=== PATIENT | female | born 1990 | race Caucasian/White ===

== ENCOUNTER 2020-10-28 12:32 | Outpatient (CLI) | payer OTHER, SELFPAY ==
--- NOTE | ~2020-10-28 | XR_ITS ---
EXAMINATION: XR chest 2V DATE: 10/28/2020 13:26 INDICATION: Shortness of breath TECHNIQUE: PA and lateral views of the chest are obtained. COMPARISON: None available FINDINGS: The lungs are free of acute opacities. There is no pleural effusion or pneumothorax. The ca rdiomediastinal silhouette is normal. The visualized bones and soft tissues are unremarkable. IMPRESSION: 1. No acute cardiopulmonary abnormality. Reviewed, dictated and finalized at location A. EWATER ENGINEER
[2020-10-28 13:27] LABS: Basophils Absolute Auto 0.1 K/mm3 (0.0-0.1); Basophils Percent Auto 0.5 % (0.2-1.2); Eosinophils Absolute Auto 0.3 K/mm3 (0-0.3); Eosinophils Percent Auto 3.2 % (0-4.4); Hematocrit 39.8 % (37.0-47.0); Hemoglobin 13.3 g/dL (12.0-15.0); Immature Granulocyte Absolute 0.03 K/mm3 (0.00-0.031); Immature Granulocyte Percent A 0.3 % (0-0.5); Lymphocytes Absolute Auto 3.09 K/mm3 (0.9-3.2); Lymphocytes Percent Auto 31.1 % (18.3-44.2); Mean Corpuscular HGB Conc 33.4 g/dl (32-36); Mean Corpuscular Hemoglobin 26.7 pg (26-34); Mean Corpuscular Volume 79.8 fl (80-100); Mean Platelet Volume 10.3 fl (7.4-10.4); Monocytes Absolute Auto 0.8 K/mm3 (0.1-0.6); Monocytes Percent Auto 7.5 % (2.6-8.5); Neutrophils Absolute Auto 5.7 K/mm3 (1.3-6.7); Neutrophils Percent Auto 57.4 % (45.5-73.1); Platelet Count Result 285 k/mm3 (150-375); Red Blood Count 4.99 M/mm3 (4.2-5.4); Red Cell Distribution Width 14.6 % (11.5-14.5)
[2020-10-28 13:40] LABS: Alanine Aminotransferase 12 U/L (4-35); Albumin Level 4.2 g/dL (3.5-5.1); Alkaline Phosphatase 71 U/L (38-126); Anion Gap 9 mmol/L (8-16); Aspartate Amino Transferase 19 U/L (14-36); Bilirubin,Total 0.5 mg/dL (0.2-1.3); Blood Urea Nitrogen 12 mg/dL (7-17); Calcium 9.4 mg/dL (8.4-10.2); Carbon Dioxide 27 mmol/L (22-30); Chloride 104 mmol/L (98-107); Cholesterol 165 mg/dL (0-200); Estimated Glomerular Filt Rate > 60; Glucose 94 mg/dL (65-105); HDL Direct 34 mg/dL; Potassium 4.1 mmol/L (3.4-5.0); Sodium 140 mmol/L (137-145); Triglycerides 94 mg/dL (<150)
[2020-10-28 13:51] LABS: LDL Cholesterol Direct 111 mg/dL
[2020-10-28 14:20] LABS: Free T4 Free Thyroxine 1.05 ng/mL (0.78-2.19)
== END 2020-10-28 12:33 | disposition home or self-care (01) ==
DX: R06.02 Shortness of breath (principal)
CPT/HCPCS: 36415; 71046; 80053; 80061; 84439; 84443; 85025

== ENCOUNTER 2021-12-01 15:03 | Emergency (ER) | payer OTHER, SELFPAY ==
[2021-12-01] VITALS (12 sets, daily range): BP systolic 115–131; BP diastolic 60–77; PULSE 67–102; RESP 15–25; TEMP 36.6; O2SAT 98–100
--- NOTE | ~2021-12-01 | XR_ITS ---
EXAMINATION: XR chest 1V portable DATE: 12/01/2021 16:50 INDICATION: Nausea, vomiting, and diarrhea. Cough. COVID-19 positive. TECHNIQUE: A single frontal view of the chest was obtained. COMPARISON: Chest 2 views 10/28/2020 FINDINGS: The chest demonstrates clear lungs without pneumonia, pleural effusion, or pneumothorax. Th e heart size is normal. IMPRESSION: 1. No acute cardiopulmonary disease. Reviewed, dictated and finalized at location A. RCEMENT MANAGER
--- NOTE | 2021-12-01 15:15 | PC.NURSE ---
Addendum entered by Enrrique Turcios RN 12/01/21 15:19: later reports one dose prednisone 2 weeks prior. Addendum entered by Enrrique Turcios RN 12/01/21 15:17: reports URI dx 2 weeks prior, was on amoxicillin, reports symptoms subsided for 2 days. Original Note: reports onset of covid symptoms on 11/24/21. reports home test positive that night. reports 14 weeks gestation, 2nd . LMP 08/07/21. reports onset of dyspnea with exertion with palpitations. reports decreased urine output.
[2021-12-01] MEDS: SODIUM CHLORIDE 0.9% IV 1,000 ML 999 ML IV CONT (16:39)
[2021-12-01] MEDS: ONDANSETRON INJ 4 MG/2 ML VIAL IV PUSH (16:40)
[2021-12-01 16:48] LABS: Basophils Percent Auto 0.2 % (0.2-1.2); Eosinophils Absolute Auto 0.1 K/mm3 (0-0.3); Eosinophils Percent Auto 0.9 % (0-4.4); Hematocrit 36.8 % (37.0-47.0); Hemoglobin 12.7 g/dL (12.0-15.0); Immature Granulocyte Absolute 0.08 K/mm3 (0.00-0.031); Immature Granulocyte Percent A 0.7 % (0-0.5); Lymphocytes Absolute Auto 2.39 K/mm3 (0.9-3.2); Lymphocytes Percent Auto 20.7 % (18.3-44.2); Mean Corpuscular HGB Conc 34.5 g/dl (32-36); Mean Corpuscular Hemoglobin 28.7 pg (26-34); Mean Corpuscular Volume 83.3 fl (80-100); Mean Platelet Volume 11.1 fl (7.4-10.4); Monocytes Absolute Auto 0.5 K/mm3 (0.1-0.6); Monocytes Percent Auto 4.6 % (2.6-8.5); Neutrophils Absolute Auto 8.5 K/mm3 (1.3-6.7); Neutrophils Percent Auto 72.9 % (45.5-73.1); Platelet Count Result 234 k/mm3 (150-375); Red Blood Count 4.42 M/mm3 (4.2-5.4); Red Cell Distribution Width 13.9 % (11.5-14.5); White Blood Count 11.6 K/mm3 (4.5-10.0)
--- NOTE | 2021-12-01 16:57 | ED.GENADULT ---
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 Last Covid vaccine January 2021. Related Data Home Medications Medication Instructions Recorded Confirmed albuterol sulfate 90 mcg/actuation 1 puff INHALATION Q4H PRN 04/18/20 aerosol inhaler fluticasone propionate 50 1 spray NASAL .prn ml 04/18/20 mcg/actuation nasal spray,suspension fluoxetine 30 mg PO DAILY 12/01/21 Allergies Allergy/AdvReac Type Severity Reaction Status Date / Time ciprofloxacin [From Cipro] Allergy Mild Diarrhea Verified 12/01/21 15:12 Review of Systems Review of Systems: CONSTITUTIONAL: Denies fever, chills, or sweats. EYES: Denies visual changes, redness, or discharge. ENT: Denies rhinorrhea, congestion, sore throat, or otalgia. CARDIOVASCULAR: Denies chest pain, palpitations, or edema. RESPIRATORY: Denies cough or dyspnea. GASTROINTESTINAL: Denies abdominal pain, nausea, vomiting, or diarrhea. GENITOURINARY: Denies dysuria or hematuria. SKIN: Denies rash or itching. MUSCULOSKELETAL: Denies back pain, joint pain, or myalgia. NEUROLOGIC: Denies headache, numbness, or weakness. PSYCHIATRIC: Denies anxiety or depression. PMFSH Past Medical History Medical History Anxiety Asthma Depression Family History Family History Mother Hypertension Diabetes mellitus High cholesterol Heart disease Father Hypertension High cholesterol ADHD Sibling Depression Grandparent Breast cancer Colon cancer Glaucoma Crohn's disease Social History Social History Smoking status: Never smoker Alcohol intake: current Substance use: never Substance use type: does not use Exam Narrative: General appearance: Well-developed, well-nourished Skin: Normal color Head: Normocephalic, nontraumatic Eyes: Clear conjunctiva ENT: Oropharynx normal, ears normal, nose normal Neck: Supple, nontender Chest and respiratory: Airway patent, no respiratory distress, no accessory muscle use Heart: Regular rate/rhythm Abdomen: Soft, nontender, no organomegaly, quiet bowel sounds Vascular: Normal peripheral pulses, normal capillary refill. Musculoskeletal: Normal range of motion, nontender back Neurologic: Alert and oriented ?3, TRANSMITTER TESTER is normal as tested, no gross motor deficit Course Course Emergency Course: Stable Vital Signs Vital signs: Vital Signs Temperature 36.6 C 12/01/21 15:07 Pulse Rate 102 H 12/01/21 15:07 Respiratory Rate 20 12/01/21 15:07 Blood Pressure 130/72 12/01/21 15:07 Pulse Oximetry 99 12/01/21 15:07 Temperature 36.6 C 12/01/21 15:07 Pulse Rate 87 12/01/21 18:31 Respiratory Rate 17 12/01/21 18:31 Blood Pressure 119/70 12/01/21 18:31 Pulse Oximetry 99 12/01/21 18:31 Medical Decision Making [facility] Narrative Medical decision making narrative: 14 weeks with Covid infection for 1 week. Work-up did not show any significant finding to confirm the diagnosis of dehydration. Patient nausea and vomiting could be secondary to Covid infection versus hyperemesis gravidar
[2021-12-01 17:00] LABS: Alanine Aminotransferase 20 U/L (4-35); Albumin Level 3.6 g/dL (3.5-5.1); Alkaline Phosphatase 58 U/L (38-126); Anion Gap 10 mmol/L (8-16); Aspartate Amino Transferase 23 U/L (14-36); Bilirubin,Total 0.3 mg/dL (0.2-1.3); Blood Urea Nitrogen 6 mg/dL (7-17); Calcium 8.8 mg/dL (8.4-10.2); Carbon Dioxide 19 mmol/L (22-30); Chloride 106 mmol/L (98-107); Estimated CRCL calculation 136 ml/min; Estimated Glomerular Filt Rate > 60; Glucose 130 mg/dL (65-110); Potassium 3.5 mmol/L (3.4-5.0); Sodium 135 mmol/L (137-145)
[2021-12-01 18:14] LABS: Add Urine Microscopic? YES; Amorphous Sediment Urine Few; Appearance Urine Cloudy (Clear); Bacteria Urine Trace /hpf; Bilirubin Urine Negative (Negative); Blood Urine Negative (Negative); Color Urine Yellow (Yellow); Glucose Urine UA 1+ mg/dL (Negative); Ketones Urine Negative (Negative); Leukocyte Esterase Ur Negative LEU/UL (Negative); Mucus Urine Rare /lpf; Nitrate Urine Negative (Negative); Protein Urine Negative (Negative); RBC Urine 0-2 /hpf (0-2); Specific Grav Ur 1.017 (1.001-1.035); Squamous Epithelial Cell Urine Few /hpf (Few); Urobilinogen Urine Negative mg/dL (<2.0); WBC Urine 0-3 /hpf
== END 2021-12-01 19:23 | disposition home or self-care (01) ==
PROVIDERS: Emergency Provider Emergency Medicine; PCP Nurse Practitioner
DX: O98.512 Other viral diseases complicating pregnancy, second trimester (principal); U07.1 COVID-19; O21.8 Other vomiting complicating pregnancy; O99.512 Diseases of the respiratory system complicating pregnancy, second trimester; J45.909 Unspecified asthma, uncomplicated; O99.342 Other mental disorders complicating pregnancy, second trimester; F41.9 Anxiety disorder, unspecified; F32.A Depression, unspecified; Z3A.14 14 weeks gestation of pregnancy
CPT/HCPCS: 36415; 71045; 80053; 81001; 85025; 96361; 96374; 99284; J2405; J7030

== ENCOUNTER 2025-09-12 12:47 | Emergency (ER) | payer BC, SELFPAY ==
[2025-09-12] VITALS (7 sets, daily range): BP systolic 109–143; BP diastolic 69–94; PULSE 88–99; RESP 17–20; TEMP 36.6; O2SAT 98–100
--- NOTE | ~2025-09-12 | XR_ITS ---
EXAM/PROCEDURE: XR chest 2V HISTORY: Chest pain COMPARISON: 2021 TECHNIQUE: Two view(s) of the chest. FINDINGS: LUNGS: Clear of acute processes. PLEURAL SPACES: Clear. No evidence of fluid or pneumothorax. HEART/ MEDIASTINUM: Normal in appearance. SOFT TISSUES: No significant findings. BONES: No acute osseous abnormality. IMPRESSION: No acute findings. Reviewed, dictated and finalized at location A. PRESS OPERATOR IMPRESSION: No acute findings.
--- NOTE | 2025-09-12 12:48 | ECG_ITS ---
Test Date: 2025-09-12 12:54:52 Measurements Intervals [place] Rate: 98 P: 50 DE: 147 QRS: 57 QRSD: 74 T: 29 QT: 314 QTc: 402 Interpretive Statements SINUS RHYTHM POSSIBLE LEFT ATRIAL ENLARGEMENT [-0.1mV P-WAVE IN V1/V2] LOW QRS VOLTAGE IN PRECORDIAL LEADS [QRS DEFLECTION < 1.0 mV IN CHEST LEADS] NONSPECIFIC T-WAVE ABNORMALITY No previous ECG available for comparison Electronically Signed On 09-12-2025 13:36:06 FEATHER BALER by Bc Allen M.D.
--- NOTE | 2025-09-12 12:57 | ED.CHESTPAIN ---
HPI - Chest Pain General Chief Complaint: Chest Pain <Irma Henson PA-C - Last Filed: 09/14/25 14:11> Stated Complaint: ab pain, cp <Irma Henson PA-C - Last Filed: 09/14/25 14:11> Time Seen by Provider: 09/12/25 12:57 <Irma Henson PA-C - Last Filed: 09/14/25 14:11> Focused HPI: This is a 35 year old female that presents to the ER for heartburn. Reports she is waking up every day with severe abdominal pain, chest pain the last couple of days. Reports worsening after eating and drinking. Reports nausea. GENERAL: Uncomfortable, well-nourished, and in no acute distress. HEAD: Normocephalic, atraumatic. CHEST: Clear to auscultation. ?No respiratory distress. HEART: Regular rate and rhythm.? NEURO: ?Alert and oriented x3. Patient screened in triage and initial orders placed.? ?Additional care and disposition to be based upon?diagnostic testing and treatment. <Irma Henson PA-C - Last Filed: 09/14/25 14:11> History of Present Illness HPI narrative: Agree with the above following additions/corrections: Patient presents with epigastric abdominal pain radiating to chest pain that has been occurring for past 4 days. She is experiencing heartburn/indigestion with frequent eructation and her symptoms are worse after she eats and worse at night she has noticed that she had to take her CPAP off as result. She took Tums this morning at 2:50 a.m. and noted that it helped for about 30 minutes. She was having some left arm pain this morning. She denies regularly following with a dampener operator initially states that she has only seen 1 once previously when she was having an issue with some sutures from her C section that had become a problem with the GI tract (?) but later does state that she underwent EGD and colonoscopy a few years ago. She notes that she was diagnosed with GERD at that time but is not on any medications as she had otherwise been asymptomatic. She notes that the only other new thing she can think about is the fact that her 3yo daughter accidentally rammed her in her vagina and she has a history of an umbilical hernia. History of Csection x2 as her prior abdominal surgeries. She has not found any relation to food of her symptoms with including the timing or type of food she eats, only the time of day i.e. particularly night. Her last bowel movement was yesterday and she denies any diarrhea constipation or bloody stools. She has been nauseated but without emesis. No fevers verses are normal chilled she has mild cough. No metallic taste in her mouth but she feels like she has a pill stuck in her throat as a sensation. Occasionally drinks alcohol though not recently. Denies smoking or marijuana use. PCP is Shanel sTang Cardiac risk factors HTN: 0 HLD:0 DM:0 Obese: Yes Smoker:0 Personal history [place]/TIA/CVA: 0 Fam Hx [place] in first degree relative <65yo:0 ([place] in grandfather 40yo) <Angelina Berg MD - Last Filed: 09/12/25 20:00> Related Data Home Medications: Home Medications ?Medication ?Instructions ?Recorded ?Confirmed ?Last Taken ?Type albuterol sulfate 90 mcg/actuation 1 puff inhalation Q4H PRN dyspnea 04/18/20 Unknown History aerosol inhaler (ProAir HFA) fluticasone propionate 50 1 spray intranasal .prn 04/18/20 Unknown History mcg/actuation nasal spray,suspension (Flonase Allergy Relief) fluoxetine 20 mg tablet 30 mg PO DAILY 12/01/21 Unknown History <Irma Henson PA-C - Last Filed: 09/14/25 14:11> Allergies/Adverse Reactions: Allergies Allergy/AdvReac Type Severity Reaction Status Date / Time ciprofloxacin (From Cipro) Allergy Mild Diarrhea Verified 09/12/25 13:26 <Irma Henson PA-C - Last Filed: 09/14/25 14:11> [facility] Past Medical History Medical History: Medical History GERD (gastroesophageal reflux disease) diagnosed on EGD Depression Anxiety Asthma <Irma Henson PA-C - Last Filed: 09/14/25 14:11> Surgical History Surgical History: Surgical History History of colonoscopy H/O esophagogastroduodenoscopy <Irma Henson PA-C - Last Filed: 09/14/25 14:11> Family History Family History: Family History Mother Hypertension Diabetes mellitus High cholesterol Heart disease Father Hypertension High cholesterol ADHD Sibling Depression Grandparent Breast cancer Colon cancer Glaucoma Crohn's disease Acute myocardial infarction 40yo <Irma Henson PA-C - Last Filed: 09/14/25 14:11> Social History Social History: Social History Alcohol intake: current Substance use: never Substance use type: does not use <Irma Henson PA-C - Last Filed: 09/14/25 14:11> Exam Narrative: GENERAL: Well-appearing, well-nourished HEAD: Normocephalic, atraumatic. EYES: Non injected, non icteric ENT: Nares clear, no rhinorrhea or epistaxis. Gross auditory acuity intact. NECK: Supple. No meningismus. CHEST: Speaking in full sentences. No respiratory distress. HEART: Regular rate and rhythm. . ABDOMEN: Soft, nondistended. No rigidity or guarding. Not peritoneal. Thomson sign negative. EXTREMITIES: Normal range of motion. No lower extremity edema. SKIN: Warm, dry, no rash. NEURO: No focal deficits. Alert and oriented. Answering questions. Following commands. Normal speech without aphasia or dysarthria. PSYCH: Normal mood and affect. <Angelina Berg MD - Last Filed: 09/12/25 20:00> Course Vital Signs Vital signs: Vital Signs Temperature 97.8 F 09/12/25 13:24 Pulse Rate 99 09/12/25 13:24 Respiratory Rate 20 09/12/25 13:24 Blood Pressure 136/87 09/12/25 13:24 Pulse Oximetry 100 09/12/25 13:24 Oxygen Delivery Room Air 09/12/25 13:24 Temperature 97.8 F 09/12/25 13:24 Pulse Rate 93 09/12/25 21:28 Respiratory Rate 17 09/12/25 21:28 Blood Pressure 109/72 09/12/25 21:28 Pulse Oximetry 98 09/12/25 21:28 Oxygen Delivery Room Air 09/12/25 17:21 <Irma Henson PA-C - Last Filed: 09/14/25 14:11> Vital Signs Temperature 97.8 F 09/12/25 13:24 Pulse Rate 99 09/12/25 13:24 Respiratory Rate 20 09/12/25 13:24 Blood Pressure 136/87 09/12/25 13:24 Pulse Oximetry 100 09/12/25 13:24 Oxygen Delivery Room Air 09/12/25 13:24 Temperature 97.8 F 09/12/25 13:24 Pulse Rate 93 09/12/25 21:28 Respiratory Rate 17 09/12/25 21:28 Blood Pressure 109/72 09/12/25 21:28 Pulse Oximetry 98 09/12/25 21:28 Oxygen Delivery Room Air 09/12/25 17:21 <Angelina Berg MD - Last Filed: 09/12/25 20:00> MDM - Chest Pain MDM Narrative Medical decision making narrative: Patient presents with report of epigastric abdominal pain radiating into chest pain over the past 4 days. She describes indigestion/heartburn with frequent eructation. Symptoms are worse after she eats as well as overnight. She had previously been diagnosed with GERD on EGD but not on meds as otherwise asymptomatic. In the emergency department they are afebrile with vital signs within normal limits. HEART SCORE History 2 highly suspicious 1 moderately suspicious 0 slightly suspicious History score [address] depression/elevation not due to LBBB, LVH, or digoxin [address] depression but LBBB, LVH, nonspecific repolarization changes 0 normal ECG score 0 Age 2 >/= 65 1 45-64 0 <45 Age score 0 Risk factors (HTN, hypercholesterolemia, DM, obesity with BMI >30, current smoker or cessation </=3mo), positive fam hx with parent or sibling with CVD before age 65, atherosclerotic disease (prior [place], PCI/CABG, CVA/TIA, or peripheral arterial disease) 2 >/= 3 risk factors or history of atherosclerotic dz 1 - 1-2 risk factors 0 no known risk factors Risk factor score 1 Initial Troponin 2 >3 times normal limit 1 1-3 times normal limit 0 less than or equal to normal limit Troponin score 0 Total HEART Score 1 . Repeat troponin within normal limits. Leukocytosis. On repeat assessment patient is still complaining of some epigastric/low chest pain. I had only given 2 mg morphine initially although this does represent significant under dosing of this medication. Additional 2 mg is ordered in addition a ketorolac and notably this was only 15 minutes after patient had been given initial round of medications. Improving on reassessment, mild pressure and bloating remains. GI cocktail ordered. Otherwise stable for discharge; vital signs have remained within normal limits. Discussed the high likelihood that this represents GERD based on the description of her symptoms and her known diagnosis of this. Advised it taking omeprazole which is prescribed in addition to ondansetron. Provided GI referral contact information if she is unable to reestablish with her previous. Also provided cardiology contact information given her low but otherwise not negligible heart score although we discussed that cardiac etiology is less likely given her workup thus far. <Angelina Berg MD - Last Filed: 09/12/25 20:00> Differential Diagnosis Differential diagnosis: Likely stable angina, unstable angina pectoris, atypical chest pain, st elevation myocardial infarction, costochondritis, chest pain, biliary colic and other (GERD, esophageal spasm; Gastritis; peptic ulcer disease) <Angelina Berg MD - Last Filed: 09/12/25 20:00> Lab Data Attestation: I reviewed the patient's lab results. <Angelina Berg MD - Last Filed: 09/12/25 20:00> Result diagrams: 09/12/25 13:00 09/12/25 13:00 <Irma Henson PA-C - Last Filed: 09/14/25 14:11> Labs: Lab Results 09/12/25 09/12/25 09/12/25 Range/Units 13:00 15:46 15:58 WBC 13.3 H (4.5-10.0) K/mm3 RBC 4.80 (4.2-5.4) M/mm3 Hgb 12.5 (12.0-15.0) g/dL Hct 39.4 (37.0-47.0) % MCV 82.1 (80-100) fl MCH 26.0 (26-34) pg MCHC 31.7 L (32-36) g/dl RDW 14.0 (11.5-14.5) % Plt Count 272 (150-375) k/mm3 MPV 10.0 (7.4-10.4) fl Immature Gran % (Auto) 0.4 (0-0.5) % Neut % (Auto) 69.7 (45.5-73.1) % Lymph % (Auto) 20.6 (18.3-44.2) % [place] % (Auto) 7.5 (2.6-8.5) % Eos % (Auto) 1.4 (0-4.4) % Baso % (Auto) 0.4 (0.2-1.2) % Lymph # (Auto) 2.74 (0.9-3.2) K/mm3 [place] # (Auto) 1.0 H (0.1-0.6) K/mm3 Eos # (Auto) 0.2 (0-0.3) K/mm3 Baso # (Auto) 0.1 (0.0-0.1) K/mm3 Abs Immat Gran (auto) 0.05 H (0.00-0.031) K/mm3 Absolute Neuts (auto) 9.3 H (1.3-6.7) K/mm3 Absolute Nucleated RBC 0.000 (0.0-0.012) K/mm3 Nucleated RBC % 0.0 (0.0-0.2) % PT 13.1 (11.1-14.7) Seconds INR 1.0 APTT 28.3 (22.3-36.8) Seconds Sodium 135 L (137-145) mmol/L Potassium 4.1 (3.4-5.0) mmol/L Chloride 102 (98-107) mmol/L Carbon Dioxide 25 (22-30) mmol/L Anion Gap 8 (4-12) mmol/L BUN 14 D (7-17) mg/dL Creatinine 0.80 (0.7-1.0) mg/dL Estim Creat Clear Calc 89 ml/min Estimated GFR > 60 (59 - ) Glucose 90 (65-110) mg/dL POC Capillary Glucose (65-105) mg/dl Calcium 9.0 (8.4-10.2) mg/dL Total Bilirubin 0.5 (0.2-1.3) mg/dL AST 21 (14-36) U/L ALT 15 (6-35) U/L Alkaline Phosphatase 64 (38-126) U/L Troponin I < 0.012 < 0.012 (0.000-0.034) ng/mL Total Protein 7.5 (6.3-8.2) g/dL Albumin 4.2 (3.5-5.1) g/dL Lipase 69 (23-300) U/L Urine Color Yellow (Yellow) Urine Appearance Cloudy H (Clear) Urine pH 6.0 (5.0-9.0) Ur Specific [place] 1.020 (1.001-1.035) Urine Protein Negative (Negative) mg/dL Urine Glucose (UA) Negative (Negative) mg/dL Urine Ketones Negative (Negative) mg/dL Ur Blood (Man) Negative (Negative) Urine Nitrate Negative (Negative) Urine Bilirubin Negative (Negative) Urine Urobilinogen 0.2 (<2.0) mg/dL Leukocyte Esterase Rfl Negative (Negative) FELIPE/UL Urine RBC 0-2 (0-2) /hpf Urine WBC 0-5 (0-3) /hpf Ur Squamous Epith Cells None seen (Few) /hpf Urine Bacteria None seen /hpf Urine Casts 0-2 09/12/25 Range/Units 21:19 WBC (4.5-10.0) K/mm3 RBC (4.2-5.4) M/mm3 Hgb (12.0-15.0) g/dL Hct (37.0-47.0) % MCV (80-100) fl MCH (26-34) pg MCHC (32-36) g/dl RDW (11.5-14.5) % Plt Count (150-375) k/mm3 MPV (7.4-10.4) fl Immature Gran % (Auto) (0-0.5) % Neut % (Auto) (45.5-73.1) % Lymph % (Auto) (18.3-44.2) % [place] % (Auto) (2.6-8.5) % Eos % (Auto) (0-4.4) % Baso % (Auto) (0.2-1.2) % Lymph # (Auto) (0.9-3.2) K/mm3 [place] # (Auto) (0.1-0.6) K/mm3 Eos # (Auto) (0-0.3) K/mm3 Baso # (Auto) (0.0-0.1) K/mm3 Abs Immat Gran (auto) (0.00-0.031) K/mm3 Absolute Neuts (auto) (1.3-6.7) K/mm3 Absolute Nucleated RBC (0.0-0.012) K/mm3 Nucleated RBC % (0.0-0.2) % PT (11.1-14.7) Seconds INR APTT (22.3-36.8) Seconds Sodium (137-145) mmol/L Potassium (3.4-5.0) mmol/L Chloride (98-107) mmol/L Carbon Dioxide (22-30) mmol/L Anion Gap (4-12) mmol/L BUN (7-17) mg/dL Creatinine (0.7-1.0) mg/dL Estim Creat Clear Calc ml/min Estimated GFR (59 - ) Glucose (65-110) mg/dL POC Capillary Glucose 130 H (65-105) mg/dl Calcium (8.4-10.2) mg/dL Total Bilirubin (0.2-1.3) mg/dL AST (14-36) U/L ALT (6-35) U/L Alkaline Phosphatase (38-126) U/L Troponin I (0.000-0.034) ng/mL Total Protein (6.3-8.2) g/dL Albumin (3.5-5.1) g/dL Lipase (23-300) U/L Urine Color (Yellow) Urine Appearance (Clear) Urine pH (5.0-9.0) Ur Specific [place] (1.001-1.035) Urine Protein (Negative) mg/dL Urine Glucose (UA) (Negative) mg/dL Urine Ketones (Negative) mg/dL Ur Blood (Man) (Negative) Urine Nitrate (Negative) Urine Bilirubin (Negative) Urine Urobilinogen (<2.0) mg/dL Leukocyte Esterase Rfl (Negative) FELIPE/UL Urine RBC (0-2) /hpf Urine WBC (0-3) /hpf Ur Squamous Epith Cells (Few) /hpf Urine Bacteria /hpf Urine Casts <Irma Henson PA-C - Last Filed: 09/14/25 14:11> Lab Results 09/12/25 09/12/25 09/12/25 Range/Units 13:00 15:46 15:58 WBC 13.3 H (4.5-10.0) K/mm3 RBC 4.80 (4.2-5.4) M/mm3 Hgb 12.5 (12.0-15.0) g/dL Hct 39.4 (37.0-47.0) % MCV 82.1 (80-100) fl MCH 26.0 (26-34) pg MCHC 31.7 L (32-36) g/dl RDW 14.0 (11.5-14.5) % Plt Count 272 (150-375) k/mm3 MPV 10.0 (7.4-10.4) fl Immature Gran % (Auto) 0.4 (0-0.5) % Neut % (Auto) 69.7 (45.5-73.1) % Lymph % (Auto) 20.6 (18.3-44.2) % [place] % (Auto) 7.5 (2.6-8.5) % Eos % (Auto) 1.4 (0-4.4) % Baso % (Auto) 0.4 (0.2-1.2) % Lymph # (Auto) 2.74 (0.9-3.2) K/mm3 [place] # (Auto) 1.0 H (0.1-0.6) K/mm3 Eos # (Auto) 0.2 (0-0.3) K/mm3 Baso # (Auto) 0.1 (0.0-0.1) K/mm3 Abs Immat Gran (auto) 0.05 H (0.00-0.031) K/mm3 Absolute Neuts (auto) 9.3 H (1.3-6.7) K/mm3 Absolute Nucleated RBC 0.000 (0.0-0.012) K/mm3 Nucleated RBC % 0.0 (0.0-0.2) % PT 13.1 (11.1-14.7) Seconds INR 1.0 APTT 28.3 (22.3-36.8) Seconds Sodium 135 L (137-145) mmol/L Potassium 4.1 (3.4-5.0) mmol/L Chloride 102 (98-107) mmol/L Carbon Dioxide 25 (22-30) mmol/L Anion Gap 8 (4-12) mmol/L BUN 14 D (7-17) mg/dL Creatinine 0.80 (0.7-1.0) mg/dL Estim Creat Clear Calc 89 ml/min Estimated GFR > 60 (59 - ) Glucose 90 (65-110) mg/dL POC Capillary Glucose (65-105) mg/dl Calcium 9.0 (8.4-10.2) mg/dL Total Bilirubin 0.5 (0.2-1.3) mg/dL AST 21 (14-36) U/L ALT 15 (6-35) U/L Alkaline Phosphatase 64 (38-126) U/L Troponin I < 0.012 < 0.012 (0.000-0.034) ng/mL Total Protein 7.5 (6.3-8.2) g/dL Albumin 4.2 (3.5-5.1) g/dL Lipase 69 (23-300) U/L Urine Color Yellow (Yellow) Urine Appearance Cloudy H (Clear) Urine pH 6.0 (5.0-9.0) Ur Specific [place] 1.020 (1.001-1.035) Urine Protein Negative (Negative) mg/dL Urine Glucose (UA) Negative (Negative) mg/dL Urine Ketones Negative (Negative) mg/dL Ur Blood (Man) Negative (Negative) Urine Nitrate Negative (Negative) Urine Bilirubin Negative (Negative) Urine Urobilinogen 0.2 (<2.0) mg/dL Leukocyte Esterase Rfl Negative (Negative) FELIPE/UL Urine RBC 0-2 (0-2) /hpf Urine WBC 0-5 (0-3) /hpf Ur Squamous Epith Cells None seen (Few) /hpf Urine Bacteria None seen /hpf Urine Casts 0-2 09/12/25 Range/Units 21:19 WBC (4.5-10.0) K/mm3 RBC (4.2-5.4) M/mm3 Hgb (12.0-15.0) g/dL Hct (37.0-47.0) % MCV (80-100) fl MCH (26-34) pg MCHC (32-36) g/dl RDW (11.5-14.5) % Plt Count (150-375) k/mm3 MPV (7.4-10.4) fl Immature Gran % (Auto) (0-0.5) % Neut % (Auto) (45.5-73.1) % Lymph % (Auto) (18.3-44.2) % [place] % (Auto) (2.6-8.5) % Eos % (Auto) (0-4.4) % Baso % (Auto) (0.2-1.2) % Lymph # (Auto) (0.9-3.2) K/mm3 [place] # (Auto) (0.1-0.6) K/mm3 Eos # (Auto) (0-0.3) K/mm3 Baso # (Auto) (0.0-0.1) K/mm3 Abs Immat Gran (auto) (0.00-0.031) K/mm3 Absolute Neuts (auto) (1.3-6.7) K/mm3 Absolute Nucleated RBC (0.0-0.012) K/mm3 Nucleated RBC % (0.0-0.2) % PT (11.1-14.7) Seconds INR APTT (22.3-36.8) Seconds Sodium (137-145) mmol/L Potassium (3.4-5.0) mmol/L Chloride (98-107) mmol/L Carbon Dioxide (22-30) mmol/L Anion Gap (4-12) mmol/L BUN (7-17) mg/dL Creatinine (0.7-1.0) mg/dL Estim Creat Clear Calc ml/min Estimated GFR (59 - ) Glucose (65-110) mg/dL POC Capillary Glucose 130 H (65-105) mg/dl Calcium (8.4-10.2) mg/dL Total Bilirubin (0.2-1.3) mg/dL AST (14-36) U/L ALT (6-35) U/L Alkaline Phosphatase (38-126) U/L Troponin I (0.000-0.034) ng/mL Total Protein (6.3-8.2) g/dL Albumin (3.5-5.1) g/dL Lipase (23-300) U/L Urine Color (Yellow) Urine Appearance (Clear) Urine pH (5.0-9.0) Ur Specific [place] (1.001-1.035) Urine Protein (Negative) mg/dL Urine Glucose (UA) (Negative) mg/dL Urine Ketones (Negative) mg/dL Ur Blood (Man) (Negative) Urine Nitrate (Negative) Urine Bilirubin (Negative) Urine Urobilinogen (<2.0) mg/dL Leukocyte Esterase Rfl (Negative) FELIPE/UL Urine RBC (0-2) /hpf Urine WBC (0-3) /hpf Ur Squamous Epith Cells (Few) /hpf Urine Bacteria /hpf Urine Casts <Angelina Berg MD - Last Filed: 09/12/25 20:00> Imaging Data Radiologist's impression: Impressions Chest X-Ray 09/12/25 13:50 IMPRESSION: No acute findings. <Angelina Berg MD - Last Filed: 09/12/25 20:00> ECG Data EKG #1: Attestation: I personally reviewed and interpreted this ECG as follows: <Angelina Berg MD - Last Filed: 09/12/25 20:00> ECG completion date: 09/12/25 <Angelina Berg MD - Last Filed: 09/12/25 20:00> ECG completion time: 12:54 <Angelina Berg MD - Last Filed: 09/12/25 20:00> Interpretation: Normal sinus rhythm at a rate of 90 beats per minute. MD interval 147. QRS 74. QT/QTC 340/402. Good R-wave progression across the precordial leads. No T-wave inversions. <Angelina Berg MD - Last Filed: 09/12/25 20:00> EKG #2: Attestation: I personally reviewed and interpreted this ECG as follows: <Angelina Berg MD - Last Filed: 09/12/25 20:00> ECG completion date: 09/12/25 <Angelina Berg MD - Last Filed: 09/12/25 20:00> ECG completion time: 17:58 <Angelina Berg MD - Last Filed: 09/12/25 20:00> Interpretation: Normal sinus rhythm at a rate of 91 beats per minute. MD interval 154. QRS 85. QT/QTC 335/414. Good R-wave progression across the precordial leads. No marked T-wave inversions or ST segment elevations or depressions. <Angelina Berg MD - Last Filed: 09/12/25 20:00> Discharge Plan Discharge Clinical Impression: Leukocytosis, Epigastric abdominal pain, Chest pain due to GERD <RAMIRO Randle Last Filed: 09/14/25 14:11> Patient Disposition: Home <RAMIRO Randle Last Filed: 09/14/25 14:11> Condition: Stable <RAMIRO Randle Last Filed: 09/14/25 14:11> Instructions: Antibiotic Form, Chest Pain (DC), GERD (Gastroesophageal Reflux Disease) (DC), Epigastric Pain (ED) <RAMIRO Randle Last Filed: 09/14/25 14:11> Additional Instructions: Recommend following up with primary care provider as well as attempting to reestablish with her dampener operator. If unable to, the name of a dampener operator is listed below as well as the name of a banking management consulting manager for referral purposes. Her symptoms sound very consistent with the GERD you have been diagnosed with previously. Recommend taking the medication prescribed. Return to the emergency department any new or worsening symptoms. <RAMIRO Randle Last Filed: 09/14/25 14:11> Patient Language: Citizen Of [place] <RAMIRO Randle Last Filed: 09/14/25 14:11> Prescriptions: New omeprazole 20 mg tablet,delayed release (DR/EC) 20 mg PO DAILY Qty: 14 0RF ondansetron 4 mg tablet,disintegrating 4 mg PO Q8H PRN (Reason: nausea and vomiting) Qty: 7 0RF No Action albuterol sulfate [ProAir HFA] 90 mcg/actuation HFA aerosol inhaler 1 puff INHALATION Q4H PRN (Reason: dyspnea) fluticasone propionate [Flonase Allergy Relief] 50 mcg/actuation spray,suspension 1 spray NASAL .prn Rx Instructions: administer into each nostril fluoxetine 20 mg Tablet 30 mg PO DAILY ondansetron HCl 4 mg tablet 4 mg PO Q6H PRN (Reason: nausea and vomiting) Qty: 10 0RF montelukast [Singulair] 10 mg tablet 10 mg PO DAILY Qty: 30 5RF <RAMIRO Randle Last Filed: 09/14/25 14:11> Follow-up/Referrals: Elsa Dooley DO [Physician, Cardiology] Kodak Baldwin MD [Physician, Gastroenterology] Shahab,JANAY Rabago [Primary Care Provider, Unknown] <Irma Henson PA-C - Last Filed: 09/14/25 14:11> Stand Alone Forms: Work/School Release IP <Irma Henson PA-C - Last Filed: 09/14/25 14:11> Time of Disposition: 19:46 <Iram Henson PA-C - Last Filed: 09/14/25 14:11> 19:46 <Angelina Berg MD - Last Filed: 09/12/25 20:00>
[2025-09-12 13:08] LABS: Hematocrit 39.4 % (37.0-47.0); Hemoglobin 12.5 g/dL (12.0-15.0); Immature Granulocyte Percent A 0.4 % (0-0.5); Lymphocytes Absolute Auto 2.74 K/mm3 (0.9-3.2); Mean Corpuscular HGB Conc 31.7 g/dl (32-36); Mean Corpuscular Hemoglobin 26.0 pg (26-34); Mean Corpuscular Volume 82.1 fl (80-100); Nucleated Red Blood Cells Absolute Auto 0.000 K/mm3 (0.0-0.012); Nucleated Red Blood Cells Perc 0.0 % (0.0-0.2); Platelet Count Result 272 k/mm3 (150-375); Red Blood Count 4.80 M/mm3 (4.2-5.4); White Blood Count 13.3 K/mm3 (4.5-10.0)
[2025-09-12 13:37] LABS: Alanine Aminotransferase 15 U/L (6-35); Albumin Level 4.2 g/dL (3.5-5.1); Alkaline Phosphatase 64 U/L (38-126); Anion Gap 8 mmol/L (4-12); Aspartate Amino Transferase 21 U/L (14-36); Bilirubin,Total 0.5 mg/dL (0.2-1.3); Blood Urea Nitrogen 14 mg/dL (7-17); Calcium 9.0 mg/dL (8.4-10.2); Carbon Dioxide 25 mmol/L (22-30); Chloride 102 mmol/L (98-107); Estimated CRCL calculation 89 ml/min; Estimated Glomerular Filt Rate > 60; Glucose 90 mg/dL (65-110); Lipase 69 U/L (23-300); Potassium 4.1 mmol/L (3.4-5.0); Sodium 135 mmol/L (137-145); Total Protein 7.5 g/dL (6.3-8.2)
[2025-09-12 13:44] LABS: Troponin I < 0.012 ng/mL (0.000-0.034)
[2025-09-12 14:02] LABS: INR 1.0; Prothrombin Time 13.1 Seconds (11.1-14.7)
[2025-09-12 14:03] LABS: Partial Thromboplastin Time 28.3 Seconds (22.3-36.8)
--- NOTE | 2025-09-12 15:38 | ECG_ITS ---
Test Date: 2025-09-12 15:41:09 Measurements Intervals [place] Rate: 91 P: 44 NC: 154 QRS: 29 QRSD: 85 T: 29 QT: 336 QTc: 414 Interpretive Statements SINUS RHYTHM LOW QRS VOLTAGE IN PRECORDIAL LEADS Electronically Signed On 09-12-2025 17:59:54 [employer]PENTERS HELPER by Romeo Lundy D.O
[2025-09-12 16:07] LABS: Add Urine Microscopic? YES; Appearance Urine Cloudy (Clear); Glucose Urine UA Negative (Negative); Leukocyte Esterase Ur Negative LEU/UL (Negative); Nitrate Urine Negative (Negative); Non Pathogenic Casts 0-2; Specific Grav Ur 1.020 (1.001-1.035)
[2025-09-12 16:17] LABS: Troponin I < 0.012 ng/mL (0.000-0.034)
--- NOTE | 2025-09-12 17:27 | PC.NURSE ---
patient had protocol order of ASA from >4hrs ago, c/o some epigastric pain; this RN did not administer the ASA due to symptom complaint and it being a protocol order.
[2025-09-12] MEDS: FAMOTIDINE 20 MG/2 ML VIAL IV PUSH (18:21)
[2025-09-12] MEDS: PANTOPRAZOLE SODIUM IV 40 MG VIAL IV PUSH (18:23)
[2025-09-12] MEDS: MORPHINE SULFATE (*CRX) 4 MG/ML INJ 2 MG IV PUSH ×2 (18:32→19:11)
[2025-09-12] MEDS: SIMETHICONE 125 MG CHEW TAB PO (18:32)
[2025-09-12] MEDS: KETOROLAC 30 MG/ML VIAL (*BKC) IV PUSH (19:11)
--- OUTSIDE RECORDS SUMMARY | 2025-09-12 19:39 | XMS_ITS | Encounter Summary ---
Author Organization [facility] Address [address] [place] [id number] Care Team Providers Care Innersole Maker Name Role Phone Shanel Gudino NP Primary Care Provider [phone] Encounter Details Date Type Department Care Team (Latest Contact Info) Description 09/12/2025 [email or web address] Message Enc [facility] Multispecialty Care - [facility] [address] [place] [address] Reece Gamino DO [address] [place], [place] [id number] CPAP use with nighttime heartburn and abdominal pain Social History Tobacco Use Types Packs/Day Years Used Date Smoking Tobacco: Never Passive Smoke Exposure: Past Smokeless Tobacco: Never Comments:Never smoked Alcohol Use Standard Drinks/Week Comments Yes 3.3 (1 standard drink = 0.6 oz p ure alcohol) Weekly PHQ-2 Answer Date Recorded Patient Health Questionnaire-2 Score 0 12/07/2024 Comments No Sex and Gender Information Value Date Recorded Sex Assigned at Not on file Legal Sex Female 10:39 AM FOUNTAIN DISPENSER Gender Identity Not on file Sexual Orientation Not on file documented as of this encounter Progress Notes * Greer Britt CRT - 09/12/2025 7:29 AM CST Images from the original note were not included. Settings changed via [employer] Website TAIN DISPENSER documented in this encounter Plan of Treatment Upcoming Encounters Date Type Department Care Team (Late st Contact Info) Description 10/02/2025 2:40 PM FOUNTAIN DISPENSER Office Visit [facility] [place] [address] [place] [address] Shanel Gudino NP [address] [place] [address] 01/28/2026 8:00 AM CDT Office Visit [facility]pec[facility] - [facility] [address] [facility] [place] [address] Reece Gamino DO [address] [place] [address] documented as of this encounter Visit Diagnoses Not on filedocumented in this encounter Additional Health Concerns Assessment Noted Time PHQ-9 Depression Total Score: 19 020 11:34 AM FOUNTAIN DISPENSER documented as of this encounter Care Teams Innersole Maker Relationship Specialty Start Date End Date Shanel Gudino NP [address] [place] [address] PCP - General NURSE PRACTITIONER 05/22/21 documented as of this encounter
--- OUTSIDE RECORDS SUMMARY | 2025-09-12 19:39 | XMS_ITS | Encounter Summary ---
Author Organization [facility] Address [address] [place] [address] Care Team Providers Care Loan Inspector Name Role Phone Shanel Gudino NP Primary Care Provider +1 [phone] Encounter Details Date Type Department Care Team (Latest Contact Info) Description 05/12/2023 Yogurtistant Message Enc [address] [place] [address] Shanel Gudino NP [address] [place] [address] [place] [address] Update from GI and Molybdenum Steamer Operator specialist Social History Tobacco Use Types Packs/Day Years Used Date Smoking Tobacco: Never Passive Smoke Exposure: Past Smokeless Tobacco: Never Comments:Never smoked Alcohol Use Standard Drinks/Week Comments Yes 3.3 (1 standard drink = 0.6 oz p ure alcohol) Weekly PHQ-2 Answer Date Recorded Patient Health Questionnaire-2 Score 0 04/05/2023 Comments No Sex and Gender Information Value Date Recorded Sex Assigned at Not on file Legal Sex Female 10:39 AM MANAGED CARE COORDINATOR Gender Identity Not on file Sexual Orientation Not on file documented as of this encounter Plan of Treatment Upcoming Encounters Date Type Department Care Team (Late st Contact Info) Description 10/02/2025 2:40 PM MANAGED CARE COORDINATOR Office Visit [facility] [address] [facility] [address] [place] [address] Shanel Gudino NP [address] [place] [address] 01/28/2026 8:00 AM CDT Office Visit [facility] Multispecialty Care - [facility] [address] [address] [place] [address] Reece Gamino DO [address] [place] [address] documented as of this encounter Visit Diagnoses Not on filedocumented in this encounter Additional Health Concerns Infection Onset Date Last Indicated Resolved Time COVID-19 Rule Out 04/24/2024 04/24/2024 04/24/2024 4:27 PM CDT COVID-19 Confirmed 04/24/2024 04/24/2024 12:32 AM CDT COVID-19 Rule Out 12/07/2024 12/07/2024 12/07/2024 12:28 PM MANAGED CARE COORDINATOR Influenza - Seasonal 12/07/2024 12/07/2024 025 12:32 AM MANAGED CARE COORDINATOR Assessment Noted Time PHQ-9 Depression Total Score: 19 020 11:34 AM MANAGED CARE COORDINATOR documented as of this encounter Care Teams Loan Inspector Relationship Specialty Start Date End Date Shanel Gudino NP [address] [place] [address] PCP - General NURSE PRACTITIONER 05/22/21 documented as of this encounter
--- OUTSIDE RECORDS SUMMARY | 2025-09-12 19:39 | XMS_ITS | Encounter Summary ---
Author Organization [facility] Address [address] [place] [address] Care Team Providers Care Copywriter Name Role Phone Shanel Gudino NP Primary Care Provider +1 [phone] Encounter Details Date Type Department Care Team (Late Contact Info) Description 11/09/2021 Mover Message Enc [facility] Medical Group Family Medicine - [place] [address] [facility] [address] [place] [phone] Shanel Gudino, [place] [address] [place] [address] Update on current condition Social History Tobacco Use Types Packs/Day Years Used Date Smoking Tobacco: Never Smokeless Tobacco: Never Alcohol Use Standard Drinks/Week Comments Yes 0 (1 standard drink = 0.6 oz pur e alcohol) PHQ-2 Answer Date Recorded PHQ-2 Score - If the patient scores above 3, please move on to questions 3-9 4 10/28/2020 Comments No Sex and Gender Information Value Date Recorded Sex Assigned at Not on file Legal Sex Female 10:39 AM GLOBAL MARKETING MANAGER Gender Identity Not on file Sexual Orientation Not on file COVID-19 Exposure Response Date Recorded In the last month, have you been in contact with someone who was confirmed or suspected to have Coronavirus / COVID-19? No / Unsure 11/07/2021 5:05 PM GLOBAL MARKETING MANAGER documented as of this encounter Plan of Treatment Upcoming Encounters Date Type Department Care Team (Late Contact Info) Description 10/02/2025 2:40 PM GLOBAL MARKETING MANAGER Office Visit [facility] Family Medicine - [place] [address] [facility] [address] [place] [address] Shanel Gudino NP [address] [place] [address] 01/28/2026 8:00 AM CDT Office Visit [facility] Multispecialty Care - [facility] [address] [place] [address] Reece Gamino DO [address] [place] [address] documented as of this encounter Visit Diagnoses Not on filedocumented in this encounter Additional Health Concerns Infection Onset Date Last Indicated Resolved Time COVID-19 Rule Out 11/09/2021 11/09/2021 11/09/2021 9:30 AM GLOBAL MARKETING MANAGER COVID-19 Rule Out 11/09/2021 11/09/2021 11/10/2021 2:34 PM GLOBAL MARKETING MANAGER COVID-19 Rule Out 01/04/2023 01/04/2023 01/04/2023 2:06 PM GLOBAL MARKETING MANAGER COVID-19 Rule Out 01/04/2023 01/04/2023 01/06/2023 3:33 PM GLOBAL MARKETING MANAGER COVID-19 Rule Out 02/07/2023 02/07/2023 02/07/2023 1:48 PM CDT COVID-19 Rule Out 02/07/2023 02/07/2023 02/08/2023 3:51 PM CDT COVID-19 Rule Out 04/08/2023 04/08/2023 04/08/2023 10:09 AM CDT COVID-19 Rule Out 04/08/2023 04/08/2023 04/09/2023 8:41 PM CDT COVID-19 Rule Out 04/24/2024 04/24/2024 04/24/2024 4:27 PM CDT COVID-19 Confirmed 04/24/2024 04/24/2024 12:32 AM CDT COVID-19 Rule Out 12/07/2024 12/07/2024 12/07/2024 12:28 PM GLOBAL MARKETING MANAGER Influenza - Seasonal 12/07/2024 12/07/2024 025 12:32 AM GLOBAL MARKETING MANAGER Assessment Noted Time PHQ-9 Depression Total Score: 19 020 11:34 AM GLOBAL MARKETING MANAGER documented as of this encounter Care Teams Copywriter Relationship Specialty Start Date End Date Shanel Gudino NP [address] [place] [address] PCP - General NURSE PRACTITIONER 05/22/21 documented as of this encounter
--- OUTSIDE RECORDS SUMMARY | 2025-09-12 19:39 | XMS_ITS | Encounter Summary ---
Author Organization [employer] Address [address] [place] [address] Care Team Providers Care Aquaculture Program Director Name Role Phone Lauryn Ryan MD Primary Care Provid er Encounter Details Date Type Department Care Team (Late st Contact Info) Description 08/08/1998 Outpatient Historical [facility] [place] [address] [place] [address] Social History Tobacco Use Types Packs/Day Years Used Date Smoking Tobacco: Never Assessed Comments Unknown Sex and Gender Information Value Date Recorded Sex Assigned at Not on file Legal Sex Female 3:35 AM LINE ASSEMBLER Gender Identity Not on file Sexual Orientation Not on file documented as of this encounter Plan of Treatment Not on file documented as of this encounter Visit Diagnoses Not on filedocumented in this encounter Care Teams Aquaculture Program Director Relationship Specialty Start Date End Date Lauryn Ryan MD [address] [place] [phone] PCP - General 01/04/13 08/06/19 documented as of this encounter
--- OUTSIDE RECORDS SUMMARY | 2025-09-12 19:39 | XMS_ITS | Encounter Summary ---
Author Organization [facility] Address [address] [place] [address] Care Team Providers Care Analytical Chemist Name Role Phone Shanel Gudino NP Primary Care Provider [phone] [phone] Encounter Details Date Type Department Care Team (Late st Contact Info) Description 08/30/2024 LaunchTrack Message Enc [facility] Medical Group Family Medicine - [place] [address] [phone] Shanel Gudino NP [address] [phone] Labs requested before visit Social History Tobacco Use Types Packs/Day Years Used Date Smoking Tobacco: Never Passive Smoke Exposure: Past Smokeless Tobacco: Never Comments:Never smoked Alcohol Use Standard Drinks/Week Comments Yes 3.3 (1 standard drink = 0.6 oz p ure alcohol) Weekly PHQ-2 Answer Date Recorded Patient Health Questionnaire-2 Score 0 08/03/2024 Comments No Sex and Gender Information Value Date Recorded Sex Assigned at Not on file Legal Sex Female 10:39 AM PROCESS IMPROVEMENT ENGINEER Gender Identity Not on file Sexual Orientation Not on file documented as of this encounter Progress Notes * Lorelei Arceo MA - 08/30/2024 3:27 PM CDT Labs ordered * Shanel Gudino NP - 08/30/2024 2:56 PM CDT Can order Vitamin D Dx vitamin D deficiency B12 and folate Dx fatigue The other 2 tests I have never ordered before so given I am not sure what I would do with the results I will need to discuss with her the other tests and her visit and what's going on. * Lorelei Arceo MA - 08/30/2024 2:52 PM CDT So do you want to add the rest of the test? What dx would I use. I already put in an order for cbc,cmp, lipid panel, and Tsh * Shanel Gudino NP - 08/30/2024 1:45 PM CDT See below. I would just let pt know I have never ordered CYP2D6 or JBB1D72 test before so hold off on those will discuss more about what she has going on at her visit. documented in this encounter Plan of Treatment Upcoming Encounters Date Type Department Care Team (Late st Contact Info) Description 10/02/2025 2:40 PM PROCESS IMPROVEMENT ENGINEER Office Visit [facility] Family Medicine - [place] [address] [facility] [address] [place] [address] Shanel Gudino NP [address] [place] [address] 01/28/2026 8:00 AM CDT Office Visit [facility] Multispecialty Care - [facility] [address] [place] [address] Reece Gamino DO [address] [place] [address] documented as of this encounter Visit Diagnoses Not on filedocumented in this encounter Additional Health Concerns Infection Onset Date Last Indicated Resolved Time COVID-19 Rule Out 12/07/2024 12/07/2024 12/07/2024 12:28 PM PROCESS IMPROVEMENT ENGINEER Influenza - Seasonal 12/07/2024 12/07/2024 025 12:32 AM PROCESS IMPROVEMENT ENGINEER Assessment Noted Time PHQ-9 Depression Total Score: 19 020 11:34 AM PROCESS IMPROVEMENT ENGINEER documented as of this encounter Care Teams Analytical Chemist Relationship Specialty Start Date End Date Shanel Gudino NP [address] [place] [address] PCP - General NURSE PRACTITIONER 05/22/21 documented as of this encounter
--- OUTSIDE RECORDS SUMMARY | 2025-09-12 19:39 | XMS_ITS | Encounter Summary ---
Author Organization [facility] Address [address] [place] [address] Care Team Providers Care Bridge Manager Name Role Phone Shanel Gudino NP Primary Care Provider [phone] [phone] Encounter Details Date Type Department Care Team (Late st Contact Info) Description 08/01/2022 Movelinet Message Enc [facility] Medical Group Family Medicine - [place] [address] [facility] [address] [place] [address] Shanel Gudino, [place] [address] [place] [address] [place] [address] regarding URINALYSIS WI REFLEX TO CULTURE Social History Tobacco Use Types Packs/Day Years Used Date Smoking Tobacco: Never Smokeless Tobacco: Never Comments:Never smoked Alcohol Use Standard Drinks/Week Comments Yes 3.3 (1 standard drink = 0.6 oz p ure alcohol) Weekly PHQ-2 Answer Date Recorded PHQ-2 Score - If the patient scores above 3, please move on to questions 3-9 0 07/19/2022 Comments No Sex and Gender Information Value Date Recorded Sex Assigned at Not on file Legal Sex Female 10:39 AM TUBING ASSEMBLER Gender Identity Not on file Sexual Orientation Not on file COVID-19 Exposure Response Date Recorded In the last 10 days, have yo u been in contact with someone who was confirmed or suspected to have Coronavirus/COVID-19? No / Unsure 07/21/2022 12:24 PM CDT documented as of this encounter Plan of Treatment Upcoming Encounters Date Type Department Care Team (Late st Contact Info) Description 10/02/2025 2:40 PM TUBING ASSEMBLER Office Visit [facility] Family Medicine - [place] [address] [facility] [address] [place] [address] Shanel Gudino NP [address] [place] [address] 01/28/2026 8:00 AM CDT Office Visit [facility] Multispecialty Care - [facility] [address] [place] [address] Reece Gamino DO [address] [facility] [address] [place] [address] documented as of this encounter Visit Diagnoses Not on filedocumented in this encounter Additional Health Concerns Infection Onset Date Last Indicated Resolved Time COVID-19 Rule Out 01/04/2023 01/04/2023 01/04/2023 2:06 PM TUBING ASSEMBLER COVID-19 Rule Out 01/04/2023 01/04/2023 01/06/2023 3:33 PM TUBING ASSEMBLER COVID-19 Rule Out 02/07/2023 02/07/2023 02/07/2023 1:48 PM CDT COVID-19 Rule Out 02/07/2023 02/07/2023 02/08/2023 3:51 PM CDT COVID-19 Rule Out 04/08/2023 04/08/2023 04/08/2023 10:09 AM CDT COVID-19 Rule Out 04/08/2023 04/08/2023 04/09/2023 8:41 PM CDT COVID-19 Rule Out 04/24/2024 04/24/2024 04/24/2024 4:27 PM CDT COVID-19 Confirmed 04/24/2024 04/24/2024 12:32 AM CDT COVID-19 Rule Out 12/07/2024 12/07/202412/07/2024 12:28 PM TUBING ASSEMBLER Influenza - Seasonal 12/07/2024 12/07/2024 025 12:32 AM TUBING ASSEMBLER Assessment Noted Time PHQ-9 Depression Total Score: 19 020 11:34 AM TUBING ASSEMBLER documented as of this encounter Care Teams Bridge Manager Relationship Specialty Start Date End Date Shanel Gudino NP [address] [place] [address] PCP - General NURSE PRACTITIONER 05/22/21 documented as of this encounter
--- OUTSIDE RECORDS SUMMARY | 2025-09-12 19:39 | XMS_ITS | Encounter Summary ---
Author Organization [facility] Address [address] [place] [address] Care Team Providers Care Racing Driver Name Role Phone Shanel Gudino NP Primary Care Provider [phone] [phone] Encounter Details Date Type Department Care Team (Latest Contact Info) Description 05/12/2023 MyChart Message Enc [facility] Multispecialty Care - [address], [address] [place] [address] Aurea Schneider NP [address] [facility] [place], [place] [phone] Need a new script for suprep sent to pharmacy Social History Tobacco Use Types Packs/Day Years [...] on file Legal Sex Female 10:39 AM HYDRAULIC RUBBISH COMPACTOR MECHANIC Gender Identity Not on file Sexual Orientation Not on file documented as of this encounter Plan of Treatment Upcoming Encounters Date Type Department Care Team (Late st Contact Info) Description 10/02/2025 2:40 PM HYDRAULIC RUBBISH COMPACTOR MECHANIC Office Visit [facility] Family Medicine - [place] [address] [facility] [address] [place] [address] Shanel Gudino NP [address] [place] [address] 01/28/2026 8:00 AM CDT Office Visit [facility] Multispecialty Care - [facility] [address] [facility] [place] [address] Reece Gamino DO [address] [facility] [address] [place] [address] documented as of this encounter Visit Diagnoses Not on filedocumented in this encounter Additional Health Concerns Infection Onset Date Last Indicated Resolved Time COVID-19 Rule Out 04/24/2024 04/24/2024 04/24/2024 4:27 PM CDT COVID-19 Confirmed 04/24/2024 04/24/2024 12:32 AM CDT COVID-19 Rule Out 12/07/2024 12/07/2024 12/07/2024 12:28 PM HYDRAULIC RUBBISH COMPACTOR MECHANIC Influenza - Seasonal 12/07/2024 12/07/2024 025 12:32 AM HYDRAULIC RUBBISH COMPACTOR MECHANIC Assessment Noted Time PHQ-9 Depression Total Score: 19 020 11:34 AM HYDRAULIC RUBBISH COMPACTOR MECHANIC documented as of this encounter Care Teams Racing Driver Relationship Specialty Start Date End Date Shanel Gudino NP [address] [place] [address] PCP - General NURSE PRACTITIONER 05/22/21 documented as of this encounter
--- OUTSIDE RECORDS SUMMARY | 2025-09-12 19:39 | XMS_ITS | Encounter Summary ---
Author Organization [facility] Address [address] [place] [address] Care Team Providers Care Terminal Make Up Operator Name Role Phone Lauryn Ryan MD Primary Care Provid er Encounter Details Date Type Department Care Team (Late st Contact Info) Description 11/26/1998 Outpatient Historical [facility] [place] [address] [place] [address] Social History Tobacco Use Types Packs/Day Years Used Date Smoking Tobacco: Never Assessed Comments Unknown Sex and Gender Information Value Date Recorded Sex Assigned at Not on file Legal Sex Female 3:35 AM WHITE WORK CLEANER Gender Identity Not on file Sexual Orientation Not on file documented as of this encounter Plan of Treatment Not on file documented as of this encounter Visit Diagnoses Not on filedocumented in this encounter Care Teams Terminal Make Up Operator Relationship Specialty Start Date End Date Lauryn Ryan MD [address] [place] [address] PCP - General 01/04/13 08/06/19 documented as of this encounter
--- OUTSIDE RECORDS SUMMARY | 2025-09-12 19:39 | XMS_ITS | Encounter Summary ---
Author Organization [facility] Address [address] [place] [address] Care Team Providers Care Wood Tool Maker Name Role Phone Shanel Gudino NP Primary Care Provider +1 [phone] Encounter Details Date Type Department Care Team (Late Contact Info) Description 06/14/2023 Green Phosphort Message Enc [facility] Family [address] [place] [phone] Shanel Gudino NP [address] [place] [address] Holter monitor Social History Tobacco Use Types Packs/Day Years [...] on file Legal Sex Female 10:39 AM SECURITY EXPERT Gender Identity Not on file Sexual Orientation Not on file documented as of this encounter Plan of Treatment Upcoming Encounters Date Type Department Care Team (Late Contact Info) Description 10/02/2025 2:40 PM SECURITY EXPERT Office Visit [facility] [address] [facility] [address] [place], [place] [address] Shanel Gudino NP [address] [place] [address] 01/28/2026 8:00 AM CDT Office Visit [facility] Medical [facility] Multispecialty Care - [facility] [address] [facility] [facility] [address] [place] [address] Reece Gamino DO [address] [facility] [address] [place] [address] documented as of this encounter Visit Diagnoses Not on filedocumented in this encounter Additional Health Concerns Infection Onset Date Last Indicated Resolved Time COVID-19 Rule Out 04/24/2024 04/24/2024 04/24/2024 4:27 PM CDT COVID-19 Confirmed 04/24/2024 04/24/2024 12:32 AM CDT COVID-19 Rule Out 12/07/2024 12/07/2024 12/07/2024 12:28 PM SECURITY EXPERT Influenza - Seasonal 12/07/2024 12/07/2024 025 12:32 AM SECURITY EXPERT Assessment Noted Time PHQ-9 Depression Total Score: 19 020 11:34 AM SECURITY EXPERT documented as of this encounter Care Teams Wood Tool Maker Relationship Specialty Start Date End Date Shanel Gudino NP [address] [place] [address] PCP - General NURSE PRACTITIONER 05/22/21 documented as of this encounter
--- OUTSIDE RECORDS SUMMARY | 2025-09-12 19:39 | XMS_ITS | Encounter Summary ---
Author Organization [facility] Address [address] [place] [address] Care Team Providers Care Orthotic/Prosthetic Practitioner Name Role Phone Shanel Gudino NP Primary Care Provider [phone] [phone] Encounter Details Date Type Department Care Team (Late Contact Info) Description 06/14/2023 Utant Message Enc [facility] Family Medicine [address] [place] [phone] Shanel Gudino NP [address] [place] [address] [place] [address] Holter Monitor results Social History Tobacco Use Types Packs/Day Years [...] on file Legal Sex Female 10:39 AM GIMP BUTTONHOLE MACHINE OPERATOR Gender Identity Not on file Sexual Orientation Not on file documented as of this encounter Plan of Treatment Upcoming Encounters Date Type Department Care Team (Late Contact Info) Description 10/02/2025 2:40 PM GIMP BUTTONHOLE MACHINE OPERATOR Office Visit [address] [place], [place] [phone] Shanel Gudino NP [address] [place] [address] 01/28/2026 8:00 AM CDT Office Visit [facility] Multispecialty Care - [facility] [address] [facility] [facility] [address] [place] [address] Reece Gamino DO [address] [facility] [address] [place] [address] documented as of this encounter Visit Diagnoses Not on filedocumented in this encounter Additional Health Concerns Infection Onset Date Last Indicated Resolved Time COVID-19 Rule Out 04/24/2024 04/24/2024 04/24/2024 4:27 PM CDT COVID-19 Confirmed 04/24/2024 04/24/2024 12:32 AM CDT COVID-19 Rule Out 12/07/2024 12/07/2024 12/07/2024 12:28 PM GIMP BUTTONHOLE MACHINE OPERATOR Influenza - Seasonal 12/07/2024 12/07/2024 025 12:32 AM GIMP BUTTONHOLE MACHINE OPERATOR Assessment Noted Time PHQ-9 Depression Total Score: 19 020 11:34 AM GIMP BUTTONHOLE MACHINE OPERATOR documented as of this encounter Care Teams Orthotic/Prosthetic Practitioner Relationship Specialty Start Date End Date Shanel Gudino NP [address] [place] [address] PCP - General NURSE PRACTITIONER 05/22/21 documented as of this encounter
--- OUTSIDE RECORDS SUMMARY | 2025-09-12 19:39 | XMS_ITS | Encounter Summary ---
Author Organization [facility] Address [address] [place] [address] Care Team Providers Care Director Of Application Development Name Role Phone Shanel Gudino NP Primary Care Provider [phone] Encounter Details Date Type Department Care Team (Latest Contact Info) Description 11/06/2021 NTRglobal Message Enc [facility] - [place] [address] [facility] [address] [place] [address] Shanel Gudino, PRESLEY [address] [place] [address] Available appointments today 11/06 Social History Tobacco Use Types Packs/Day Years [...] on file Legal Sex Female 10:39 AM MANAGER PMO Gender Identity Not on file Sexual Orientation Not on file COVID-19 Exposure Response Date Recorded In the last month, have you been in contact with someone who was confirmed or suspected to have Coronavirus / COVID-19? No / Unsure 11/07/2021 5:05 PM MANAGER PMO documented as of this encounter Plan of Treatment Upcoming Encounters Date Type Department Care Team (Late st Contact Info) Description 10/02/2025 2:40 PM MANAGER PMO Office Visit [facility] Family Medicine - [place] [address] [facility] [address] [place] [address] Shanel Gudino NP [address] [place] [address] 01/28/2026 8:00 AM CDT Office Visit [facility]pecialty Care - [facility] [address] [place] [address] Reece Gamino DO [address] [place] [address] documented as of this encounter Visit Diagnoses Not on filedocumented in this encounter Additional Health Concerns Infection Onset Date Last Indicated Resolved Time COVID-19 Rule Out 11/09/2021 11/09/2021 11/09/2021 9:30 AM MANAGER PMO COVID-19 Rule Out 11/09/2021 11/09/2021 11/10/2021 2:34 PM MANAGER PMO COVID-19 Rule Out 01/04/2023 01/04/2023 01/04/2023 2:06 PM MANAGER PMO COVID-19 Rule Out 01/04/2023 01/04/2023 01/06/2023 3:33 PM MANAGER PMO COVID-19 Rule Out 02/07/2023 02/07/2023 02/07/2023 1:48 PM CDT COVID-19 Rule Out 02/07/2023 02/07/2023 02/08/2023 3:51 PM CDT COVID-19 Rule Out 04/08/2023 04/08/2023 04/08/2023 10:09 AM CDT COVID-19 Rule Out 04/08/2023 04/08/2023 04/09/2023 8:41 PM CDT COVID-19 Rule Out 04/24/2024 04/24/2024 04/24/2024 4:27 PM CDT COVID-19 Confirmed 04/24/2024 04/24/2024 12:32 AM CDT COVID-19 Rule Out 12/07/2024 12/07/2024 12/07/2024 12:28 PM MANAGER PMO Influenza - Seasonal 12/07/2024 12/07/2024 025 12:32 AM MANAGER PMO Assessment Noted Time PHQ-9 Depression Total Score: 19 020 11:34 AM MANAGER PMO documented as of this encounter Care Teams Director Of Application Development Relationship Specialty Start Date End Date Shanel Gudino NP [address] [place] [address] PCP - General NURSE PRACTITIONER 05/22/21 documented as of this encounter
--- OUTSIDE RECORDS SUMMARY | 2025-09-12 19:39 | XMS_ITS | Encounter Summary ---
Author Organization [facility] Address [address] [place] [address] Care Team Providers Care Wheel Press Operator Name Role Phone Shanel Gudino NP Primary Care Provider [phone] Encounter Details Date Type Department Care Team (Latest Contact Info) Description 12/19/2024 Videdressingt Message Enc [facility] Family Medicine [facility] [address] [place] [address] [place] [phone] Shanel Gudino NP [address] [address] Materials Management Supervisor referral please Social History Tobacco Use Types Packs/Day Years [...] on file Legal Sex Female 10:39 AM ENTERTAINMENT USHER Gender Identity Not on file Sexual Orientation Not on file documented as of this encounter Plan of Treatment Upcoming Encounters Date Type Department Care Team (Late st Contact Info) Description 10/02/2025 2:40 PM ENTERTAINMENT USHER Office Visit [facility] [address] [facility] [address] [place], [place] [phone] Shanel Gudino NP [address] [place] [address] 01/28/2026 8:00 AM CDT Office Visit [facility] - [facility] [address] [place] [address] Reece Gamino DO [address] [place] [address] documented as of this encounter Visit Diagnoses Not on filedocumented in this encounter Additional Health Concerns Assessment Noted Time PHQ-9 Depression Total Score: 19 10/28/ 020 11:34 AM ENTERTAINMENT USHER documented as of this encounter Care Teams Wheel Press Operator Relationship Specialty Start Date End Date Shanel Gudino NP [address] [place] [address] PCP - General NURSE PRACTITIONER 05/22/21 documented as of this encounter
--- OUTSIDE RECORDS SUMMARY | 2025-09-12 19:39 | XMS_ITS | Data Portability ---
Author Organization [id number] Address [address] [place] [address] Assessment No assessment recorded. Plan of Treatment Reminders Order Date Submit Date Provider Last Modified By Organization Details Last Modified Time Details Appointments ANNUAL- EST 15 2025 04:00P M ALEXIA HENDERSON WHNP Not available Not available Not available Lab None recorde d. Referral pelvic floor therapy referra l [address] (Phys Therapy), [address] [place] [address], [address], 03/04/2025 08:42:54 Procedures None recorde d. Surgeries None recorde d. Imaging MAMMO, diagnos tic, digital , bilater al - pain L breast at 6 oclock on areola- intense itching of L nipple 2024 025 [facility] - Radiology New Fax # As Of 02/27/24), [address] [place], [address], 02/13/2025 13:33:54 Medication Orders None recorde d. Patient TargetsNo targets recorded. Patient InstructionsNo instructions recorded. Reason for Referral Pelvic Floor Therapy Referra l for Female urinary stress incontinence Referring Physician: Alexia Henderson, SOFTWARE SUPPORT SPECIALIST, Encounter Date: 01/30/2025 Problems Name Problem SNOMED Code Status Onset Date Resolution Date Notes Provider Name and Address Organization Details Recorded Time Sore nipple 185134612 Active 2024 ALEXIA SERNA [address] [facility] [address], [place], [place], [address], [facility] 16:29:30 Pain of left breast 5208070753 Active 2024 ALEXIA SERNA [address] [facility] [address], [place], [place], [address], [facility] 16:29:41 Female urinary stress incontinence 00419491 Active 2024 ALEXIA SERNA [address] [facility] [address], [place], [place], [address], [facility] 16:30:49 Problem Notes None recorded. Procedures Surgical History Date Name Laterality Status Provider Name and Address Organization Details Recorded Time 08/07/20 22 Date of Last Pap Smear completed Allison [facility] 01/30/2025 16:05:29 Hysteroscopy completed Allison [facility] 01/30/2025 16:01:04 Other completed Allison [facility] 01/30/2025 16:01:04 Caesarean Section completed Allison [facility] 01/30/2025 16:01:04 [facility] 01/30/2025 16:01:04 Imaging Results None recorded. Procedure Notes None recorded. Medical Equipment None Reported. Allergies Allergen ID Allergen Name Allergen Category Reaction Reaction Severity Criticality Documentation Date Start Date Code Code System Note Provider Name and Address Organization Details Recorded Time 420417 ciproflox acin medicatio n Not available Not available Not available 01/30/2025 2551 RxNorm Allison Solorzano [facility] 16:00:43 438529 mold extract environme nt Not available Not available Not available 01/30/2025 22695 8 RxNorm Allison Solorzano [facility] 16:00:43 Medications Name Sig Start Date Stop Date Status Note LastModified by Organization Details LastModified Time doxycycline hyclate 100 mg capsule TAKE 1 CAPSULE BY MOUTH TWICE DAILY FOR 14 DAYS 01/30 completed Not Available Not Available Not Available prednisone 20 mg tablet TAKE 2 TABLETS BY MOUTH EVERY MORNING FOR 5 DAYS 01/30 completed Not Available Not Available Not Available sulfamethox azole 800 mg-trimetho prim 160 mg tablet TAKE 1 TABLET BY MOUTH TWICE DAILY FOR 14 DAYS 01/30 completed Not Available Not Available Not Available budesonide 0.5 mg/2 mL suspension for nebulizatio n EMPTY 2 VIALS INTO IDS, ADD DISTILLED WATER AND SALINE PACKET, IRRIGATE ONCE DAILY active Not Available Not Available No t Available Xhance 93 mcg/actuati on breath activated aerosol SPRAY 2 SPRAYS IN EACH NOSTRIL TWICE A DAY active Not Available Not Available No t Available Paxlovid 300 mg (150 mg x 2)-100 mg tablets in a dose pack TAKE 3 TABLETS BY MOUTH TWICE DAILY 01/30 completed Not Available Not Available Not Available Vitals Date Recorded Body weight Body mass index (BMI) Body height Systolic And Diastolic Provider Name and Address Organization Details Last Updated DateTime 01/30/2025 49364.07 g 36.2 kg/m2 158.75 cm 116/74 mm[Hg] Allison Solorzano [facility] 01/30/2025 16:07:20 Social History Question Answer Notes LastModified by Organizat ion Details LastModified Time Tobacco Smoking Status Never Smoker Allison Solorzano [facility] 01/30/2025 16:01:00 Do You Have An Advance Directive? No [email or web address] Information not available 01/30/2025 If You Are , What Was Your Level Of Alcohol Consumption Prior To ? None [email or web address] Information not available 01/30/2025 What Is Your Level Of Caffeine Consumption? Moderate [email or web address] Information not available 01/30/2025 What Type Of Diet Are You Following? REGULAR [email or web address] Information not available 01/30/2025 Sex: Unknown Functional Status Question Answer Note LastModified by Organization D etails LastModified Time What is your level of alcohol consumption? None [email or web address] Information not available 01/30/2025 Are you currently employed? Yes [email or web address] Information not available 01/30/2025 Mental Status None recorded. Family History Relationship Description Onset Age of this Age Resolved Age Notes LastModified by Organization Details LastModified Time Mother Heart disease [email or web address] Not available 2024 16:00:48 Mother Osteoporosis [email or web address] Not avai lable 01/30/2025 16:00:48 Mother Diabetes mellitus Not available 2024 16:00:48 Maternal Grandmother Malignant neoplasm of breast [email or web address] Not available 2024 16:00:48 Maternal Grandmother Malignant neoplasm of lung [email or web address] Not available 2024 16:00:48 Maternal Grandmother Osteoporosis Not available 01/30/2025 16:00:48 Sister Anxiety disorder [email or web address] Not available 2024 16:00:48 Sister Depressive disorder [email or web address] Not available 2024 16:00:48 Maternal Grandfather Myocardial infarction [email or web address] Not available 01/30 16:00:48 Father Hypertensive disorder [email or web address] Not available 2024 16:00:48 Medical History Condition Response Pulmonary- Sleep Apnea Y Psych- Anxiety Disorder Y Psych- Depression Y ENT-Other Y Pulmonary- Asthma Y Gynecological History Statement/Question Response 14 History of PCOS N Flow Heavy History of Fibroids N Date of LMP 01/26/2025 History of Infertility N History of Vulvar Dysplasia N Current Control Method: None History of Cervical Dysplasia N Duration of Flow (days) 6-8 History of Recurrent Ovarian Cysts N Cologuard Testing N HPV Vaccine Completed History of Endometriosis N Sexually Active? N History of Dysmenorrhea Y Menses Monthly Y Date of Last Pap Smear 08/07/2022 History of Sexually Transmitted Infectio n N Obstetrics History GPAL:G 0 P 0 0 0 0 Past Encounters Encounter ID Performer Location Encounter Start Date Encounter Closed Date Diagnosis/Indication Diagnosis SNOMED-CT Code Diagnosis ICD10 Code Diagnosis IMO Codes Diagnosis Note [id number] K[address]HA [address], [place] [id number] [address] [place] [address] 01/30/2025 15:55:57 01/30/2025 16:32:34 Pain of left breast 4199914843 N64.4 -have mammogram done-if normal results-wi ll bring back with MD for nipple biopsy Female uri robbie stress incontinence 55640782 N39.3 -call to schedule pelvic floor PT Health Concerns Section Related Observation LastModified by Organization Detai ls LastModified Time None Recorded Concern Status LastModified by Organization Details LastModified Time None Recorded Advance Directives Directive N: Payers Insurance Date Sequence Insurance Name Policy Number Policy Barba Covered Member ID Barba Member ID Guarantor Name 01/25/2025 1 [employer] - [facility] (PPO) Juana Hernandez [id number] Juana Hernandez Notes Date Note Type Note Provider Name and Address Organization Details Recorded Time 5 text/html [facility] Annual Well-Women Visit Age 30-39Reported by PatientPreventive Health ScreeningsFor current medical history, patient reportsreviewed and documented. For relevant family history, patient reportsno family history of breast cancer. For last pap smear, patient fooxprvly-ik-krub.Contracep tionFor contraceptive method, patient reportssatisfied with current methodandcontraceptive method: abstinence.Sexually ActiveFor sexually active, patient reportsno: by choice.STI ScreenFor sti screen, patient reportsdeclines sti testing.Menstrual History/SymptomsFor menstrual cycle, patient reportsnormal menstrual cycle and flow. ALEXIA HENDERSON [facility] [address] [facility] [address], [place], [address], [facility] 01/31/2025 12:48:26 OBGyn Episode No OBEpisode recorded.
--- OUTSIDE RECORDS SUMMARY | 2025-09-12 19:39 | XMS_ITS | Encounter Summary ---
Author Organization [email or web address] Address [address] [place] [address] Care Team Providers Care Before School Babysitter Name Role Phone Lauryn Ryan MD Primary Care Provid er Encounter Details Date Type Department Care Team (Late st Contact Info) Description 12/20/1998 Outpatient Historical [facility] [place] [address] [place] [address] Social History Tobacco Use Types Packs/Day Years Used Date Smoking Tobacco: Never Assessed Comments Unknown Sex and Gender Information Value Date Recorded Sex Assigned at Not on file Legal Sex Female 3:35 AM PSYCHOLOGISTS Gender Identity Not on file Sexual Orientation Not on file documented as of this encounter Plan of Treatment Not on file documented as of this encounter Visit Diagnoses Not on filedocumented in this encounter Care Teams Before School Babysitter Relationship Specialty Start Date End Date Lauryn Ryan MD [address] [place] [address] PCP - General 01/04/13 08/06/19 documented as of this encounter
--- OUTSIDE RECORDS SUMMARY | 2025-09-12 19:39 | XMS_ITS | Encounter Summary ---
Author Organization [facility] Address [address] [place] [address] Care Team Providers Care Material Handler 2Nd Shift Name Role Phone Shanel Gudino NP Primary Care Provider [phone] Encounter Details Date Type Department Care Team (Latest Contact Info) Description 11/28/2024 MyChart Message Enc [facility] - [facility] [address] [place] [address] Reece Gamino DO [address] [place], [place] [id number] Surgery Social History Tobacco Use Types Packs/Day Years [...] on file Legal Sex Female 10:39 AM ELECTRICIAN RECTIFIER MAINTENANCE Gender Identity Not on file Sexual Orientation Not on file documented as of this encounter Plan of Treatment Upcoming Encounters Date Type Department Care Team (Late st Contact Info) Description 10/02/2025 2:40 PM ELECTRICIAN RECTIFIER MAINTENANCE Office Visit [facility] - [place] [address] [facility] [address] [place] [address] Shanel Gudino NP [address] [place] [address] 01/28/2026 8:00 AM CDT Office Visit [facility] - [facility] [address] [place] [address] Reece Gamino DO [address] [place] [address] documented as of this encounter Visit Diagnoses Not on filedocumented in this encounter Additional Health Concerns Infection Onset Date Last Indicated Resolved Time COVID-19 Rule Out 12/07/2024 12/07/2024 12/07/2024 12:28 PM ELECTRICIAN RECTIFIER MAINTENANCE Influenza - Seasonal 12/07/2024 12/07/2024 025 12:32 AM ELECTRICIAN RECTIFIER MAINTENANCE Assessment Noted Time PHQ-9 Depression Total Score: 19 020 11:34 AM ELECTRICIAN RECTIFIER MAINTENANCE documented as of this encounter Care Teams Material Handler 2Nd Shift Relationship Specialty Start Date End Date Shanel Gudino NP [address] [place] [address] PCP - General NURSE PRACTITIONER 05/22/21 documented as of this encounter
--- OUTSIDE RECORDS SUMMARY | 2025-09-12 19:39 | XMS_ITS | Encounter Summary ---
Author Organization [facility] Address [address] [place] [address] Care Team Providers Care Performance Test Consultant Name Role Phone Teagan Ryan MD Primary Care Provid er Encounter Details Date Type Department Care Team (Late st Contact Info) Description 08/14/2008 Emergency [facility] Er, Authorized P NO ADDRESS ON FILE Clement Abbott MD [address] [place] [address] [place] [address] Social History Tobacco Use Types Packs/Day Years Used Date Smoking Tobacco: Never Assessed Comments Unknown Sex and Gender Information Value Date Recorded Sex Assigned at Not on file Legal Sex Female 3:35 AM SECTION MAINTAINER Gender Identity Not on file Sexual Orientation Not on file documented as of this encounter Plan of Treatment Not on file documented as of this encounter Procedures Procedure Name Priority Date/Time Associated Diagnosis Comments CT ABDOMEN PELVIS W CONTRAST Stat 08/14/2008 9:54 PM CDT URINALYSIS WITH REFLEX CULTURE Stat 08/14/2008 8:00 PM CDT CBC WITH DIFFERENTIAL Stat 08/14/2008 8:00 PM CDT URINALYSIS W/REFLEX MICROSCOPIC Stat 08/14/2008 8:00 PM CDT URINE CULTURE Stat 08/14/2008 8:00 PM CDT documented in this encounter Results * CT ABDOMEN PELVIS W CONTRAST (08/14/2008 9:54 PM CDT) Anatomical Region Laterality Modality Abdomen Other 08/14/2008 9:54 PM CDT Narrative 08/14/2008 10:19 PM CDT [address] [address] Admit Date: 08/14/2008 NICOLE SMITH Sex: F Admit Prov: ER, AUTHORIZED P Date: 1990 Primary Care Prov: TEAGAN RYAN CMRN: [id number] Room: [facility] SSN: IMAGING SERVICES Ordering Prov: N/A Accession Number: [id number] Interpretation Computed tomography examination of the abdomen and pelvis with intravenous and oral contrast administration on Aug 14, 2008 9:54:25 PM . History: pain Enhanced axial images of the abdomen and pelvis were obtained following intravenous and oral contrast administration. The liver and spleen enhance homogeneously. The kidneys demonstrate symmetric uptake and concentration of contrast. The adrenal glands, gallbladder and pancreas appear normal. The visualized loops of bowel appear grossly normal. No free intraperitoneal air or fluid are present. The bladder is distended with urine. The visualized lung bases are clear. Impression: Unremarkable examination with no convincing evidence of any acute intra- abdominal inflammatory changes. . Dictated by: RADHIKA DALAL F 08/14/2008 22:16 Electronically signed by: RADHIKA DALAL F 08/14/2008 22:17 Procedure Note Radhika Dalal MD - 08/14/[address] [address] Admit Date: 08/14/2008 NICOLE SMITH Sex: F Admit Prov: ER, AUTHORIZED P Date: 1990 Primary Care Prov: LUIS TEAGAN A CMRN: [id number] Room: [facility] SSN: IMAGING SERVICES Ordering Prov: N/A Interpretation Computed tomography examination of the abdomen and pelvis withintravenous and oral contrast administration on Aug 14, 2008 9:54:25 PM . History: pain Enhanced axial images of the abdomen and pelvis were obtainedfollowing intravenous and oral contrast administration. The liver and spleen enhance homogeneously. The kidneys demonstrate symmetric uptake and concentration ofcontrast. The adrenal glands, gallbladder and pancreas appear normal. The visualized loops of bowel appear grossly normal. No free intraperitoneal air or fluid are present. The bladder is distended with urine. The visualized lung bases are clear. Impression: Unremarkable examination with no convincing evidence of any acuteintra- abdominal inflammatory changes. . Dictated by: RADHIKA DALAL 08/14/2008 22:16 Electronically signed by: RADHIKA DALAL F 08/14/2008 22:[address] ORDERABLES Final Result * URINE CULTURE (08/14/2008 8:00 PM CDT) Pathologist [facility] PRELIMINARY REPORT Pending [facility] FINAL REPORT 10-50,000 colonies/mL Polymicrobial growth consistent with normal urethral jaclyn [facility] 08/14/2008 8:00 PM CDT 08/14/2008 8:31 PM CDT Clement Abbott MD MICROBIOLOGY - GENERAL ORDERABL ES Final Result INTERFACE SYSTEM Refer to clinic/hospital department [facility] CLIA# [id number] [address] [place] [address] * (ABNORMAL) URINALYSIS (08/14/2008 8:00 PM CDT) KETONES UA Negative Negative [facility] CLARITY UA Slt. Cloudy(A) Clear [facility] BLOOD UA 3+(A) Negative [facility] PROTEIN UA Negative Negative [facility] LEUKOCYTE ESTERASE UA Negative Negative [facility] UROBILINOGEN UA <1 <1 mg/dL [facility] SPECIFIC GRAVITY UA 1.020 1.001 - 1.035 [facility] GLUCOSE UA Negative Negative [facility] COLOR UA Pale Yellow [facility] NITRITE UA Negative Negative [facility] BILIRUBIN UA Negative Negative [facility] PH UA 6.0 5.0 - 8.0 [facility] WBC UA 0-5 0 - 5 /HPF [facility] TRANSITIONAL EPI 0-2 /HPF [facility] RBC UA 5-10(A) 0 - 2 /HPF [facility] MUCOUS, URINE Rare [facility] BACTERIA UA Trace None Seen /HPF [facility] 08/14/2008 8:00 PM CDT 08/14/2008 8:08 PM CDT Clement Abbott MD URINE ORDERABLES Edited Performing Organization Address [facility] Phone Number INTERFACE SYSTEM Refer to clinic/hospital department [facility] CLIA# [id number] [address] [place] [address] * URINALYSIS WITH REFLEX CULTURE (08/14/2008 8:00 PM CDT) [facility] URINE CULTURE ORDER Culture ordered [facility] Comment: Criteria for a reflex culture include one or more of the following: Abnormal WBCs, RBCs or bacteria. Lack of qualifying criteria does not exclude the possibility of a urinary tract infection. Dilute urine, drug interference, etc. may decrease the sensitivity of the criteria analytes. Urine specimen (specimen) 08/14/2008 8:00 PM CDT 08/14/2008 8:08 PM CDT Narrative INTERFACE SYSTEM - 08/14/2008 8:24 PM CDT er 5 us Clement Abbott MD URINE ORDERABLES Final Result Performing Organization Address [facility] Phone Number INTERFACE SYSTEM Refer to clinic/hospital department [facility] CLIA# [id number] [address] [place] [address] * (ABNORMAL) CBC WITH DIFFERENTIAL (08/14/2008 8:00 PM CDT) WBC 11.3(H) 4.0 - 9.8 K/uL [facility] MCH 26.5(L) 27.2 - 32.6 pg [facility] MPV 10.4 9.3 - 12.4 fL [facility] HEMATOCRIT 39.0 35.5 - 44.0 % [facility] RDW-STDEV 40.3 37.1 - 48.7 fL [facility] RBC 4.87 3.90 - 4.90 M/uL [facility] MCHC 33.1 31.5 - 35.5 % [facility] PLATELETS 303 140 - 350 K/uL [facility] MCV 80.1(L) 82.0 - 99.0 fL [facility] HEMOGLOBIN 12.9 11.8 - 14.8 g/dL [facility] RDW 14.0 11.5 - 14.5 % [facility] NEUTROPHIL ABSOLUTE 8.53(H) 1.90 - 7.00 K/uL [facility] EOSINOPHILS 0 0 - 7 % [facility] EOSINOPHIL ABSOLUTE 0.03 0.00 - 0.70 K/uL [facility] LYMPHOCYTES 18 16 - 45 % [facility] LYMPHOCYTE ABSOLUTE 2.08 0.70 - 4.50 K/uL [facility] BASOPHILS 0 0 - 2 % [facility] BASOPHILS ABSOLUTE 0.02 0.00 - 0.20 K/uL [facility] MONOCYTES 6 3 - 13 % [facility] MONOCYTE ABSOLUTE 0.67 0.10 - 1.30 K/uL [facility] NEUTROPHILS 75(H) 45 - 70 % [facility] Blood specimen (specimen) 08/14/2008 8:00 PM CDT 08/14/2008 8:08 PM CDT Narrative INTERFACE SYSTEM - 08/14/2008 8:13 PM CDT er 5 us Clement Abbott MD HEMATOLOGY ORDERABLES Edited INTERFACE SYSTEM Refer to clinic/hospital department [facility] CLIA# [id number] [address] [place] [address] documented in this encounter Visit Diagnoses Not on filedocumented in this encounter Care Teams Performance Test Consultant Relationship Specialty Start Date End Date Teagan Ryan MD [address] [place] [address] PCP - General 01/04/13 08/06/19 documented as of this encounter
--- OUTSIDE RECORDS SUMMARY | 2025-09-12 19:39 | XMS_ITS | Encounter Summary ---
Author Organization [facility] Address [address] [place] [address] Care Team Providers Care Log Manager Name Role Phone Shanel Gudino NP Primary Care Provider [phone] [phone] Encounter Details Date Type Department Care Team (Late Contact Info) Description 05/17/2023 [employer] [facility] Patient Accounts [address] [place] [address] [facility] Provider Insurance Verification Social History Tobacco Use Types Packs/Day Years [...] on file Legal Sex Female 10:39 AM INFANTRY WEAPONS OFFICER Gender Identity Not on file Sexual Orientation Not on file documented as of this encounter Plan of Treatment Upcoming Encounters Date Type Department Care Team (Late st Contact Info) Description 10/02/2025 2:40 PM INFANTRY WEAPONS OFFICER Office Visit [facility] Medical Group Family Medicine - [place] [address] [facility] [address] [place] [phone] Shanel Gudino NP [address] [place] [address] [place], [place] [phone] 01/28/2026 8:00 AM CDT Office Visit [facility] Medical Group Multispecialty Care - [facility] [address] [place] [address] Klaus GaminovalerieDO [address] [place] [address] documented as of this encounter Visit Diagnoses Not on filedocumented in this encounter Additional Health Concerns Infection Onset Date Last Indicated Resolved Time COVID-19 Rule Out 04/24/2024 04/24/2024 04/24/2024 4:27 PM CDT COVID-19 Confirmed 04/24/2024 04/24/2024 12:32 AM CDT COVID-19 Rule Out 12/07/2024 12/07/2024 12/07/2024 12:28 PM INFANTRY WEAPONS OFFICER Influenza - Seasonal 12/07/2024 12/07/2024 025 12:32 AM INFANTRY WEAPONS OFFICER Assessment Noted Time PHQ-9 Depression Total Score: 19 020 11:34 AM INFANTRY WEAPONS OFFICER documented as of this encounter Care Teams Log Manager Relationship Specialty Start Date End Date Shanel Gudino NP [address] [place] [address] PCP - General NURSE PRACTITIONER 05/22/21 documented as of this encounter
--- OUTSIDE RECORDS SUMMARY | 2025-09-12 19:39 | XMS_ITS | Encounter Summary ---
Author Organization [facility] Address [address] [place] [address] Care Team Providers Care Manager Web Application Name Role Phone Shanel Gudino NP Primary Care Provider [phone] [phone] Encounter Details Date Type Department Care Team (Late Contact Info) Description 09/24/2022 MyChart Message Enc [facility] Family Medicine [facility] [address] [place] [address] [place] [address] Shanel Gudino NP [address] [place] [address] [place] [address] Sutures coming out of rectum Social History Tobacco Use Types Packs/Day Years [...] on file Legal Sex Female 10:39 AM SALES ANALYTICS MANAGER Gender Identity Not on file Sexual Orientation Not on file documented as of this encounter Plan of Treatment Upcoming Encounters Date Type Department Care Team (Late st Contact Info) Description 10/02/2025 2:40 PM SALES ANALYTICS MANAGER Office Visit [address] [place] [address] Shanel Gudino, [place] [address] [place] [address] 01/28/2026 8:00 AM CDT Office Visit [facility] Multispecialty Care - [facility] [address] [place] [address] Reece Gamino DO [address] [place] [address] documented as of this encounter Visit Diagnoses Not on filedocumented in this encounter Additional Health Concerns Infection Onset Date Last Indicated Resolved Time COVID-19 Rule Out 01/04/2023 01/04/2023 01/04/2023 2:06 PM SALES ANALYTICS MANAGER COVID-19 Rule Out 01/04/2023 01/04/2023 01/06/2023 3:33 PM SALES ANALYTICS MANAGER COVID-19 Rule Out 02/07/2023 02/07/2023 02/07/2023 1:48 PM CDT COVID-19 Rule Out 02/07/2023 02/07/2023 02/08/2023 3:51 PM CDT COVID-19 Rule Out 04/08/2023 04/08/2023 04/08/2023 10:09 AM CDT COVID-19 Rule Out 04/08/2023 04/08/2023 04/09/2023 8:41 PM CDT COVID-19 Rule Out 04/24/2024 04/24/2024 04/24/2024 4:27 PM CDT COVID-19 Confirmed 04/24/2024 04/24/2024 12:32 AM CDT COVID-19 Rule Out 12/07/2024 12/07/2024 12/07/2024 12:28 PM SALES ANALYTICS MANAGER Influenza - Seasonal 12/07/2024 12/07/2024 025 12:32 AM SALES ANALYTICS MANAGER Assessment Noted Time PHQ-9 Depression Total Score: 19 020 11:34 AM SALES ANALYTICS MANAGER documented as of this encounter Care Teams Manager Web Application Relationship Specialty Start Date End Date Shanel Gudino NP [address] [place] [address] PCP - General NURSE PRACTITIONER 05/22/21 documented as of this encounter
--- OUTSIDE RECORDS SUMMARY | 2025-09-12 19:39 | XMS_ITS | Encounter Summary ---
Author Organization [facility] Address [address] [place] [address] Care Team Providers Care Leguillon Debeader Name Role Phone Shanel Gudino NP Primary Care Provider [phone] Encounter Details Date Type Department Care Team (Late st Contact Info) Description 07/27/2022 LikeBright Message Enc [facility] Medical Group Family Medicine - [place] [address] [facility] [address] [place] [address] Shanel Gudino, [place] [address] [place] [address] [place] [address] Forgot to mention in previous message Social History Tobacco Use Types Packs/Day Years [...] on file Legal Sex Female 10:39 AM COMMUNITY ACTION WORKER Gender Identity Not on file Sexual Orientation [...] st Contact Info) Description 10/02/2025 2:40 PM COMMUNITY ACTION WORKER Office Visit [facility] Medical [facility] Family Medicine - [place] [address] [facility] [address] [place] [address] Shanel Gudino NP [address] [place] [address] 01/28/2026 8:00 AM CDT Office Visit [facility] Multispecialty Care - [facility] [address] [place] [address] Reece Gamino DO [address] [place] [address] documented as of this encounter Visit Diagnoses Not on filedocumented in this encounter Additional Health Concerns Infection Onset Date Last Indicated Resolved Time COVID-19 Rule Out 01/04/2023 01/04/2023 01/04/2023 2:06 PM COMMUNITY ACTION WORKER COVID-19 Rule Out 01/04/2023 01/04/2023 01/06/2023 3:33 PM COMMUNITY ACTION WORKER COVID-19 Rule Out 02/07/2023 02/07/2023 02/07/2023 1:48 PM CDT COVID-19 Rule Out 02/07/2023 02/07/2023 02/08/2023 3:51 PM CDT COVID-19 Rule Out 04/08/2023 04/08/2023 04/08/2023 10:09 AM CDT COVID-19 Rule Out 04/08/2023 04/08/2023 04/09/2023 8:41 PM CDT COVID-19 Rule Out 04/24/2024 04/24/2024 04/24/2024 4:27 PM CDT COVID-19 Confirmed 04/24/2024 04/24/2024 12:32 AM CDT COVID-19 Rule Out 12/07/2024 12/07/2024 12/07/2024 12:28 PM COMMUNITY ACTION WORKER Influenza - Seasonal 12/07/2024 12/07/2024 025 12:32 AM COMMUNITY ACTION WORKER Assessment Noted Time PHQ-9 Depression Total Score: 19 020 11:34 AM COMMUNITY ACTION WORKER documented as of this encounter Care Teams Leguillon Debeader Relationship Specialty Start Date End Date Shanel Gudino NP [address] [place] [address] PCP - General NURSE PRACTITIONER 05/22/21 documented as of this encounter
--- OUTSIDE RECORDS SUMMARY | 2025-09-12 19:39 | XMS_ITS | Encounter Summary ---
Author Organization [facility] Address [address] [place] [address] Care Team Providers Care Automotive Service Director Name Role Phone Sahnel Gudino NP Primary Care Provider +1 [phone] Encounter Details Date Type Department Care Team (Late st Contact Info) Description 12/28/[address] 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 SCIENTIST Gender Identity Not on file Sexual Orientation Not on file documented as of this encounter Progress Notes * Lorelei Arceo MA - 12/28/2024 2:15 PM CST Please advise MER SCIENTIST documented in this encounter Plan of Treatment Upcoming Encounters Date Type Department Care Team (Late st Contact Info) Description 10/02/2025 2:40 PM POLYMER SCIENTIST Office Visit [facility] Family Medicine - [place] [address] [facility] [address] [place] [address] Shanel Gudino NP [address] [place] [address] 01/28/2026 8:00 AM CDT Office Visit [facility] Multispecialty Care - [facility] [address] [place] [address] Reece Gamino DO [address] [place] [address] documented as of this encounter Visit Diagnoses Not on filedocumented in this encounter Additional Health Concerns Assessment Noted Time PHQ-9 Depression Total Score: 19 020 11:34 AM POLYMER SCIENTIST documented as of this encounter Care Teams Automotive Service Director Relationship Specialty Start Date End Date Shanel Gudino NP [address] [place] [address] PCP - General NURSE PRACTITIONER 05/22/21 documented as of this encounter
--- OUTSIDE RECORDS SUMMARY | 2025-09-12 19:39 | XMS_ITS | Encounter Summary ---
Author Organization [facility] Address [address] [place] [address] Care Team Providers Care Associate Programmer Name Role Phone Shanel Gudino NP Primary Care Provider +1 [phone] Encounter Details Date Type Department Care Team (Late Contact Info) Description 06/16/2021 Michael Bieker Message Enc [facility] Medical Group Family Medicine - [place] [address] [facility] [address] [place] [phone] Shanel Gudino, RADAR ENGINEER [address] [place] [address] RE: Test Results Social History Tobacco Use Types Packs/Day Years [...] on file Legal Sex Female 10:39 AM TALENT ACQUISITION SOURCER Gender Identity Not on file Sexual Orientation Not on file COVID-19 Exposure Response Date Recorded In the last month, have you been in contact with someone who was confirmed or suspected to have Coronavirus / COVID-19? No / Unsure 05/29/2021 8:54 AM CDT documented as of this encounter Plan of Treatment Upcoming Encounters Date Type Department Care Team (Late Contact Info) Description 10/02/2025 2:40 PM TALENT ACQUISITION SOURCER Office Visit [facility] Family Medicine - [place] [address] [facility] [address] [place] [address] Shanel Gudino NP [address] [place] [address] 01/28/2026 8:00 AM CDT Office Visit [facility] Multispecialty Care - [facility] [address] [place] [address] Reece Gamino DO [address] [place] [address] documented as of this encounter Visit Diagnoses Not on filedocumented in this encounter Additional Health Concerns Infection Onset Date Last Indicated Resolved Time COVID-19 Rule Out 11/09/2021 11/09/2021 11/09/2021 9:30 AM TALENT ACQUISITION SOURCER COVID-19 Rule Out 11/09/2021 11/09/2021 11/10/2021 2:34 PM TALENT ACQUISITION SOURCER COVID-19 Rule Out 01/04/2023 01/04/2023 01/04/2023 2:06 PM TALENT ACQUISITION SOURCER COVID-19 Rule Out 01/04/2023 01/04/2023 01/06/2023 3:33 PM TALENT ACQUISITION SOURCER COVID-19 Rule Out 02/07/2023 02/07/2023 02/07/2023 1:48 PM CDT COVID-19 Rule Out 02/07/2023 02/07/2023 02/08/2023 3:51 PM CDT COVID-19 Rule Out 04/08/2023 04/08/2023 04/08/2023 10:09 AM CDT COVID-19 Rule Out 04/08/2023 04/08/2023 04/09/2023 8:41 PM CDT COVID-19 Rule Out 04/24/2024 04/24/2024 04/24/2024 4:27 PM CDT COVID-19 Confirmed 04/24/2024 04/24/2024 12:32 AM CDT COVID-19 Rule Out 12/07/2024 12/07/2024 12/07/2024 12:28 PM TALENT ACQUISITION SOURCER Influenza - Seasonal 12/07/2024 12/07/2024 025 12:32 AM TALENT ACQUISITION SOURCER Assessment Noted Time PHQ-9 Depression Total Score: 19 020 11:34 AM TALENT ACQUISITION SOURCER documented as of this encounter Care Teams Associate Programmer Relationship Specialty Start Date End Date Shanel Gudino NP [address] [place] [address] PCP - General NURSE PRACTITIONER 05/22/21 documented as of this encounter
--- OUTSIDE RECORDS SUMMARY | 2025-09-12 19:39 | XMS_ITS | Clinical Summary ---
Author Organization [facility] Address [address] [place] [address] Care Team Providers Care Admissions Consultant Name Role Phone Shanel Gudino NP Primary Care Provider [phone] Allergies Active Allergy Reactions Criticality Noted Date Comments Ciprofloxacin Diarrhea 02/05/2015 Medications Respiratory Therapy Supplies (NEBULIZER) DeviceIndication s:Shortness of breath 1 Device by Does not apply route 4 (four) times daily as needed. 1 each 2 Active Cholecalciferol (VITAMIN D3) 250 MCG (00952 UT) Cap Take by mouth 2 (two) times a day. Active XHANCE 93 MCG/ACT Exhaler Suspension 4 Active budesonide-glyco pyrrolate-formot farshad (BREZTRI AEROSPHERE) 160-9-4.8 MCG/ACT inhalerIndicatio ns:Moderate persistent asthma with acute exacerbation (HHS/HCC) Inhale 2 puffs into the lungs 2 (two) times a day. 10.7 g 6 4 Active Additional Information Patient not taking.Reported on 08/05/2025 Respiratory Therapy Supplies (NEBULIZER/TUBIN G/MOUTHPIECE) KitIndications:M oderate persistent asthma with acute exacerbation (HHS/HCC) NEEDS AEROSOL MASK - To use with Nebulizer treatments 1 kit 4 Active montelukast (SINGULAIR) 10 MG tabletIndication s:Chronic seasonal allergic rhinitis Take 1 tablet (10 mg total) by mouth daily. 90 tablet 1 5 Active predniSONE (DELTASONE) 20 MG tabletIndication s:Wheezing Take 2 tablets every morning for 5 days 10 tablet 5 Active Additional Information Patient not taking.Reported on 08/05/2025 FLUoxetine (PROZAC) 20 MG capsuleIndicatio ns:Anxiety Take 1 capsule (20 mg total) by mouth daily. 90 capsule 1 5 Active budesonide-formo terol (SYMBICORT) 160-4.5 MCG/ACT inhalerIndicatio ns:Mild intermittent asthma without complication (HHS/HCC) Inhale 2 puffs into the lungs every 6 (six) hours as needed. Rinse and spit after each use 10.2 g 3 5 Active Active Problems Problem Noted Date Diagnosed Date RAGHU (obstructive sleep apnea) 09/26/2024 Overview (09/26/2024): On CPAP. Will still have troubles breathing with use. Is having her adenoids removed and will be having allery testing due to having chronic congetion. ENT started her on Xhance and pt feels it has been helpful. Assessment & Plan (09/26/2024 3:28 PM DIVISION SUPERVISOR): Chronic condition. Resume compliance with CPAP. Encourage to work on weight loss and good sleep hygiene. Depression 09/26/2024 Overview (09/26/2024): Doing well with use of fluoxetine 20 mg daily. 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 Denies any SI/HI. She feels her depression is going to improve soon when her goes back to work but will keep me updated if she feels any medication changes as needed. Assessment & Plan (09/26/2024 3:22 PM DIVISION SUPERVISOR): Chronic condition, stable. Pt denies wanting to make any med changes at this time. Pt notes he depression is a little worse d/t her working more hours right now but should improve soon when her goes back to work. She will follow back up if not to discuss. Denies SI/HI. Obesity (BMI 30-39.9) 09/26/2024 Assessment & Plan (09/26/2024 3:24 PM DIVISION SUPERVISOR): Encourage diet and lifestyle changes to assist with weight loss. Vitamin D deficiency 09/26/2024 Overview (09/26/2024): Hx of vitamin D deficiency. She was taking 10,000 IU daily and then increased on her own to 20,000IU daily. Her vitamin D level came back elevated at her last lab draw so she went back, taking only 10,000 IUs daily. Assessment & Plan (09/26/2024 3:24 PM DIVISION SUPERVISOR): Resume only 10,000 IUs daily of D3. Exercise-induced asthma 09/26/2024 Overview (09/26/2024): Stable with Albuterol PRN. Assessment & Plan (09/26/2024 3:26 PM DIVISION SUPERVISOR): Chronic condition, controlled. No changes needed at this time. Continue albuterol PRN. Continue to follow up with pulmonology as directed. Seasonal allergies 09/26/2024 Overview (09/26/2024): Doing well with Xhance and montelukast. Will be getting allergy testing in the near future she tells me. Assessment & Plan (09/26/2024 3:30 PM DIVISION SUPERVISOR): Chronic condition, controlled. Will be getting allergy testing in near future. No changes needed at this time. Family history of Crohn's disease 04/07/2023 Overview (04/07/2023): Added automatically from request for surgery [id number] Lung nodule, multiple 01/07/2023 Overview (09/26/2024): Est with pulmonology Dr. Gamino. Pt reports pulm was not concerned with her lung nodules. No follow up testing needed. Assessment & Plan (09/26/2024 3:24 PM DIVISION SUPERVISOR): Continue to follow up with pulmonology as instructed. Resolved Problems Problem Noted Date Diagnosed Date Resolved Date Abdominal cramping 04/07/2023 Overview (04/07/2023): Added automatically from request for surgery [id number] Blood in stool 04/07/2023 09/26/2024 Overview (04/07/2023): Added automatically from request for surgery [id number] Epigastric pain 04/07/2023 09/26/2024 Overview (04/07/2023): Added automatically from request for surgery [id number] Change in bowel habit 04/07/20232023 Overview (04/07/2023): Added automatically from request for surgery [id number] BRBPR (bright red blood per rectum) 04/07/2023 09/26/2024 Overview (04/07/2023): Added automatically from request for surgery [id number] RLQ abdominal pain 04/07/2023 Overview (04/07/2023): Added automatically from request for surgery [id number] Bleeding hemorrhoid 04/07/2023 09/26/20 24 Overview (04/07/2023): Added automatically from request for surgery [id number] Neck pain 07/19/2022 09/26/2024 New daily persistent headache 07/19/2022 09/26/2024 Cold induced bronchospasm 11/28/2020 Anxiety 10/28/2020 09/26/2024 Annual physical exam 10/28/2020 020 S/P section 08/30/2019 024 Encounters Date Type Department Care Team Description 09/12/2025 IndoorAtlast Message Enc [facility] Medical Group Multispecialty Care - [address] [place] [phone] Reece Gamino DO CPAP use with nighttime heartburn and abdominal pain 08/07/2025 Telephone [facility] - [address] [phone] Reece Gamino DO Medication 08/05/2025 8:40 AM CDT [facility] [address] [facility] [place] [phone] Reece Gamino DO Asthma (Was only able to get the Breztri for 30 days due to insurance ); Obstructive Sleep Apnea (On cpap ) 08/05/2025 Travel 08/01/2025 Scan HEALTH INFO SRVCS Scanned, Doc Med Group Sleep Study (SCAN) from Last 3 Months Immunizations Immunization Administration Dates Next Due Dtap (Acel-Immune) 06/11/2005, 6,07/20/1994,1991,1991 Fluzone (IIV3, Trivalent, 0. 5 ML Prefilled Syringe) 09/26/2024 Fluzone 6 Months+ Quad (0.5 mL Prefilled Syringe) 11/19/2022 HPV 08/05/2009,06/11/2008 HPV4 (Gardasil) 09/16/2016 Hepatitis B Pediatric 07/09/1993,09/15/1992,07/08 Hib (PedvaxHIB)3 Dose 07/20/1994,01/01/1992,/0 05/1991 Influenza (Generic) 08/21/2019,09/14/2018,2016 Influenza Adult (Generic) 09/16/2016 MMR (MMRII) 03/19/1996,07/20/1994 Polio IPV (Ipol) 03/19/1996, 4,01/01/1992,1990,1991 Td, Adsorbed, Preservative F ree, Adult Use, Lf Unspecified 06/11/2005 Tdap (Generic) 08/31/2019,11/21/2017 Family History Medical History Relation Comments Arthritis Father Hyperlipidemia Father Hypertension Father Early Maternal Grandfather COD-heart a ttack Asthma Maternal Grandmother COPD Maternal Grandmother Cancer Maternal Grandmother Miscarriages / Stillbirths Maternal Grandmother Colon polyps Mother Heart Disease Mother Hypertension Mother Crohns Disease Paternal Aunt Crohns Disease Paternal Grandmother Depression Sister Hypertension Sister Rheumatoid Arthritis Sister Relation Status Comments Father Alive Maternal Grandfather Alive Maternal Grandmother Mother Alive Paternal Aunt Alive Paternal Grandfather Alive Paternal Grandmother Sister Alive Social History Tobacco Use Types Packs/Day Years Used Date Smoking Tobacco: Never Passive Smoke Exposure: Past Smokeless Tobacco: Never Tobacco Cessation:Counseling Given: Yes Comments:Never smoked Alcohol Use Standard Drinks/Week Comments Yes 3.3 (1 standard drink = 0.6 oz p ure alcohol) Weekly PHQ-2 Answer Date Recorded Patient Health Questionnaire-2 Score 0 12/07/2024 Comments No Sex and Gender Information Value Date Recorded Sex Assigned at Not on file Legal Sex Female 10:39 AM DIVISION SUPERVISOR Gender Identity Not on file Sexual Orientation Not on file Last Filed Vital Signs Vital Sign Reading Time Taken Comments Blood Pressure 110/75 08/05/2025 8:41 AM CDT Pulse 69 08/05/2025 8:41 AM CDT Temperature 37.5 C (99.5 F) 12/07/2024 11:57 AM DIVISION SUPERVISOR Respiratory Rate 16 08/05/2025 8:41 AM CDT Oxygen Saturation 98% 08/05/2025 8:41 AM CDT Inhaled Oxygen Concentration - - Weight 89.8 kg (198 lb) 08/05/2025 8:41 AM CDT Height 157.5 cm (5' 2) 08/05/2025 8:41 AM CDT Body Mass Index 36.21 08/05/2025 8:41 AM CDT Plan of Treatment Upcoming Encounters Date Type Department Care Team (Late st Contact Info) Description 10/02/2025 2:40 PM DIVISION SUPERVISOR Office Visit [facility] Medical Group Family Medicine - [place] [address] [facility] [address] [place] [address] Shanel Gudino NP [address] [place] [address] 01/28/2026 8:00 AM CDT Office Visit [facility] Medical Group Multispecialty Care - Health system [address] [facility] [address] [place] [address] Reece Gamino, [address] [facility] [address] [place] [address] Health Maintenance Due Date Last Done Comments Pneumococcal Vaccine: Pediatrics (0 to 5 Years) and At-Risk Patients (6 to 49 Years) (1 of 2 - PCV) 2010 Cervical Cancer Screening Pap with HPV Testing (Age 30 to 64) Every 5 Years 2021 08/21/2020, 09/23/2016 Cervical Cancer Screening Pap Smear (Age 30 to 64) Every 3 Years 02/28/2025 02/28/2022, 08/21/2020, 08/21/2020, Additional history exists Cervical Cancer Screening with HPV 02/28/2025 COVID-19 Vaccine ( season) 2025 01/12/2021 Influenza Adult (#1) 2025 09/26/2024, 11/19/2022, 08/21/2019, Additional history exists Annual Physical 09/26/2025 09/26/2024, 05/08, 10/28/2020 DTaP, Tdap and Td Vaccines (8 - Td or Tdap) 08/31/2029 08/31/2019, 11/21/2017, 06/11/2005, Additional history exists Hepatitis B Vaccines Completed 07/09/1993, 09/15/1992, 07/24/1992 HPV Vaccines Completed 09/16/2016, 07/09, 06/11/2008 Hepatitis C Completed 08/22/2023 PHQ-2 (Physician [place]) Completed 12/07/2024 Hepatitis A Vaccines Aged Out No long er eligible based on patient's age to complete this topic Meningococcal B Vaccine Aged Out No l onger eligible based on patient's age to complete this topic Meningococcal Vaccine Aged Out No pauline manav eligible based on patient's age to complete this topic RSV Immunizations Under 20 Months Aged Out No longer eligible based on patient's age to complete this topic Procedures Procedure Name Priority Date/Time Associated Diagnosis Comments SLEEP STUDY GENERIC (SCAN ORDER) 08/01/2025 HEPATITIS C ANTIBODY W/RFX TO HCV RNA Routine 08/22/2023 9:36 AM CDT Need for hepatitis C screening test OUTSIDE CYTOPATH CERV/VAG INTERPRET (PAP) (SCAN ORDER) 08/21/2020 from Last 3 Months or Most Recently Relevant to Health Maintenance Results * SLEEP STUDY GENERIC (SCAN ORDER) (08/01/2025) 08/01/2025 us Doc [facility] Scanned SCANNING Final Resu lt * HEPATITIS C ANTIBODY W/RFX TO HCV RNA ([facility] ONLY) (08/22/2023 9:36 AM CDT) HEPATITIS C AB NON-REACT GISSEL NON-REACT GISSEL [facility] [facility] Comment: HCV antibody was non-reactive. There is no laboratory evidence of HCV infection. In most cases, no further action is required. However, if recent HCV exposure is suspected, a test for HCV RNA (test code 31729) is suggested. For additional information please refer to http://education.Network Game Interaction/faq/GOK44a1 (This link is being provided for informational/ educational purposes only.) 08/22/2023 9:36 AM CDT 08/22/2023 9:37 AM CDT Narrative [facility] [employer] [facility] - [place] [facility] - 08/23/2023 4:49 AM CDT FASTING:YES FASTING: YES Resulting Agency Comment Performing Organization Information: Site ID: [id number] Name: [facility] [facility] Address: Formerly named [facility] [place] [id number] Director: Toshia Ayala MD us Shanelchapito Gudino NP LABORATORY Final Res ult [facility] - [place] [id number] [place] [address], [place] * OUTSIDE CYTOPATH CERV/VAG INTERPRET (PAP) (08/21/2020) 08/21/2020 Narrative 08/21/2020 Ordered by an unspecified provider. us Documents Scanned SCANNING Final Result from Last 3 Months or Most Recently Relevant to Health Maintenance Care Teams Admissions Consultant Relationship Specialty Start Date End Date Shanel Gudino, [place] [address] [place] [address] PCP - General NURSE PRACTITIONER 05/22/21
--- OUTSIDE RECORDS SUMMARY | 2025-09-12 19:39 | XMS_ITS | Encounter Summary ---
Author Organization [facility] Address [address] [place] [address] Care Team Providers Care Broom Worker Name Role Phone Lauryn Ryan MD Primary Care Provid er Encounter Details Date Type Department Care Team (Late st Contact Info) Description 09/18/2007 Emergency [facility] EMERGENCY ROOM WASH Unspecified Site of Ankle Sprain and Strain (Primary Dx) Social History Tobacco Use Types Packs/Day Years Used Date Smoking Tobacco: Never Assessed Comments Unknown Sex and Gender Information Value Date Recorded Sex Assigned at Not on file Legal Sex Female 3:35 AM TUBE SIZER OPERATOR Gender Identity Not on file Sexual Orientation Not on file documented as of this encounter Plan of Treatment Not on file documented as of this encounter Visit Diagnoses Diagnosis Sprain of ankle, unspecified site- Primary documented in this encounter Care Teams Broom Worker Relationship Specialty Start Date End Date Lauryn Ryan MD [address] [place] [address] PCP - General 01/04/13 08/06/19 documented as of this encounter
--- OUTSIDE RECORDS SUMMARY | 2025-09-12 19:39 | XMS_ITS | Encounter Summary ---
Author Organization [facility] Address [address] [place] [address] Care Team Providers Care Lighting Engineer Name Role Phone Lauryn Ryan MD Primary Care Provid er Encounter Details Date Type Department Care Team (Late st Contact Info) Description 07/29/1998 Outpatient Historical [facility] [place] [address] [place] [address] Social History Tobacco Use Types Packs/Day Years Used Date Smoking Tobacco: Never Assessed Comments Unknown Sex and Gender Information Value Date Recorded Sex Assigned at Not on file Legal Sex Female 3:35 AM MIXED CROP AND LIVESTOCK FARMER Gender Identity Not on file Sexual Orientation Not on file documented as of this encounter Plan of Treatment Not on file documented as of this encounter Visit Diagnoses Not on filedocumented in this encounter Care Teams Lighting Engineer Relationship Specialty Start Date End Date Lauryn Ryan MD [address] [place] [phone] PCP - General 01/04/13 08/06/19 documented as of this encounter
--- OUTSIDE RECORDS SUMMARY | 2025-09-12 19:39 | XMS_ITS | Encounter Summary ---
Author Organization [facility] Address [address] [place] [address] Care Team Providers Care Derrick Operator Name Role Phone Shanel Gudino NP Primary Care Provider [phone] Encounter Details Date Type Department Care Team (Late Contact Info) Description 05/12/2023 DealTractiont Message Enc [facility] Family Medicine [address] [place] [phone] Shanel Gudino NP [address] [place] [address] Another concern I have noticed Social History Tobacco Use Types Packs/Day Years [...] on file Legal Sex Female 10:39 AM HEAD SWAMPER Gender Identity Not on file Sexual Orientation Not on file documented as of this encounter Plan of Treatment Upcoming Encounters Date Type Department Care Team (Late Contact Info) Description 10/02/2025 2:40 PM HEAD SWAMPER Office Visit [address] [place] [address] Shanel Gudino NP [address] [place] [address] 01/28/2026 8:00 AM CDT Office Visit [facility] Medical Group Multispecialty Care - [facility] [address] [facility] [address] [place] [address] Reece Gamino DO [address] [facility] [address] [place] [address] documented as of this encounter Visit Diagnoses Not on filedocumented in this encounter Additional Health Concerns Infection Onset Date Last Indicated Resolved Time COVID-19 Rule Out 04/24/2024 04/24/2024 04/24/2024 4:27 PM CDT COVID-19 Confirmed 04/24/2024 04/24/2024 4 12:32 AM CDT COVID-19 Rule Out 12/07/2024 12/07/2024 12/07/2024 12:28 PM HEAD SWAMPER Influenza - Seasonal 12/07/2024 12/07/2024 025 12:32 AM HEAD SWAMPER Assessment Noted Time PHQ-9 Depression Total Score: 19 020 11:34 AM HEAD SWAMPER documented as of this encounter Care Teams Derrick Operator Relationship Specialty Start Date End Date Shanel Gudino NP [address] [place] [address] PCP - General NURSE PRACTITIONER 05/22/21 documented as of this encounter
--- OUTSIDE RECORDS SUMMARY | 2025-09-12 19:39 | XMS_ITS | Encounter Summary ---
Author Organization [facility] Address [address] [place] [address] Care Team Providers Care Instructional Consultant Name Role Phone Lauryn Ryan MD Primary Care Provid er Encounter Details Date Type Department Care Team (Late st Contact Info) Description 11/20/1998 Emergency [facility] EMERGENCY ROOM [facility] Ariana San MD [address] [place] [address] Er, Authorized P NO ADDRESS ON FILE Open wound of jaw, without mention of complication (Primary Dx) Social History Tobacco Use Types Packs/Day Years Used Date Smoking Tobacco: Never Assessed Comments Unknown Sex and Gender Information Value Date Recorded Sex Assigned at Not on file Legal Sex Female 3:35 AM MANAGER SUPPLIER Gender Identity Not on file Sexual Orientation Not on file documented as of this encounter Plan of Treatment Not on file documented as of this encounter Visit Diagnoses Diagnosis Open wound of jaw, without mention of complication- Primary documented in this encounter Care Teams Instructional Consultant Relationship Specialty Start Date End Date Lauryn Ryan MD [address] [place] [address] PCP - General 01/04/13 08/06/19 documented as of this encounter
--- OUTSIDE RECORDS SUMMARY | 2025-09-12 19:39 | XMS_ITS | Encounter Summary ---
Author Organization [facility] Address [address] [place] [address] Care Team Providers Care Smocker Name Role Phone Shanel Gudino NP Primary Care Provider [phone] Encounter Details Date Type Department Care Team (Late Contact Info) Description 08/23/2024 MyChart Message Enc [facility] Multispecialty Care - [facility] [address] [place] [phone] Reece Gamino DO [address] [place], [place] [phone] Ent referral Social History Tobacco Use Types Packs/Day Years [...] on file Legal Sex Female 10:39 AM PLANT BIOLOGY PROFESSOR Gender Identity Not on file Sexual Orientation Not on file documented as of this encounter Plan of Treatment Upcoming Encounters Date Type Department Care Team (Late Contact Info) Description 10/02/2025 2:40 PM PLANT BIOLOGY PROFESSOR Office Visit [facility] Family Medicine - [place] [address] [facility] [address] [place] [address] Shanel Gudino NP [address] [place] [address] 01/28/2026 8:00 AM CDT Office Visit [facility] Multispecialty Care - [facility] [address] [place] [address] Reece Gamino DO [address] [facility] [address] [place] [address] documented as of this encounter Visit Diagnoses Not on filedocumented in this encounter Additional Health Concerns Infection Onset Date Last Indicated Resolved Time COVID-19 Rule Out 12/07/2024 12/07/2024 12/07/2024 12:28 PM PLANT BIOLOGY PROFESSOR Influenza - Seasonal 12/07/2024 12/07/2024 025 12:32 AM PLANT BIOLOGY PROFESSOR Assessment Noted Time PHQ-9 Depression Total Score: 19 020 11:34 AM PLANT BIOLOGY PROFESSOR documented as of this encounter Care Teams Smocker Relationship Specialty Start Date End Date Shanel Gudino NP [address] [place] [address] PCP - General NURSE PRACTITIONER 05/22/21 documented as of this encounter
--- OUTSIDE RECORDS SUMMARY | 2025-09-12 19:39 | XMS_ITS | Encounter Summary ---
Author Organization [facility] Address [address] [place] [address] Care Team Providers Care Board Mixer Tender Name Role Phone Shanel Gudino NP Primary Care Provider [phone] Encounter Details Date Type Department Care Team (Late Contact Info) Description 06/21/2022 MECLUB Message Enc [facility] Medical [facility] Family Medicine - [place] [address] [facility] [address] [place] [phone] Shanel Gudino, IRRIGATOR VALVE PIPE [address] [place] [address] Hospital lab results Social History Tobacco Use Types Packs/Day [...] on file Legal Sex Female 10:39 AM MOTOR BUILDER WINDER Gender Identity Not on file Sexual Orientation Not on file COVID-19 Exposure Response Date Recorded In the last 10 days, have yo u been in contact with someone who was confirmed or suspected to have Coronavirus/COVID-19? No / Unsure 06/19/2022 1:27 PM CDT documented as of this encounter Plan of Treatment Upcoming Encounters Date Type Department Care Team (Late Contact Info) Description 10/02/2025 2:40 PM MOTOR BUILDER WINDER Office Visit [facility] Family Medicine - [place] [address] [place] [address] Shanel Gudino NP [address] [place] [address] 01/28/2026 8:00 AM CDT Office Visit [facility] Multispecialty Care - [facility] [address] [place] [address] Reece Gamino DO [address] [facility] [place] [address] documented as of this encounter Visit Diagnoses Not on filedocumented in this encounter Additional Health Concerns Infection Onset Date Last Indicated Resolved Time COVID-19 Rule Out 01/04/2023 01/04/2023 01/04/2023 2:06 PM MOTOR BUILDER WINDER COVID-19 Rule Out 01/04/2023 01/04/2023 01/06/2023 3:33 PM MOTOR BUILDER WINDER COVID-19 Rule Out 02/07/2023 02/07/2023 02/07/2023 1:48 PM CDT COVID-19 Rule Out 02/07/2023 02/07/2023 02/08/2023 3:51 PM CDT COVID-19 Rule Out 04/08/2023 04/08/2023 04/08/2023 10:09 AM CDT COVID-19 Rule Out 04/08/2023 04/08/2023 04/09/2023 8:41 PM CDT COVID-19 Rule Out 04/24/2024 04/24/2024 04/24/2024 4:27 PM CDT COVID-19 Confirmed 04/24/2024 04/24/2024 12:32 AM CDT COVID-19 Rule Out 12/07/2024 12/07/2024 12/07/2024 12:28 PM MOTOR BUILDER WINDER Influenza - Seasonal 12/07/2024 12/07/2024 025 12:32 AM MOTOR BUILDER WINDER Assessment Noted Time PHQ-9 Depression Total Score: 19 020 11:34 AM MOTOR BUILDER WINDER documented as of this encounter Care Teams Board Mixer Tender Relationship Specialty Start Date End Date Shanel Gudino NP [address] [place] [address] PCP - General NURSE PRACTITIONER 05/22/21 documented as of this encounter
--- OUTSIDE RECORDS SUMMARY | 2025-09-12 19:39 | XMS_ITS | Encounter Summary ---
Author Organization [facility] Address [address] [place] [address] Care Team Providers Care Packing Shed Supervisor Name Role Phone Shanel Gudino NP Primary Care Provider +1 [phone] Encounter Details Date Type Department Care Team (Late Contact Info) Description 10/04/2022 MyChart Message Enc [facility] Family Medicine [facility] [address] [facility] [address] [place] [address] Shanel Gudino NP [address] [place] [address] Update from OB last office visit Social History Tobacco Use Types Packs/Day [...] on file Legal Sex Female 10:39 AM LACE BURN OUT TENDER Gender Identity Not on file Sexual Orientation Not on file documented as of this encounter Plan of Treatment Upcoming Encounters Date Type Department Care Team (Late st Contact Info) Description 10/02/2025 2:40 PM LACE BURN OUT TENDER Office Visit [facility] [address] [facility] [address] [place], [place] [phone] Shanel Gudino, [place] [address] [place] [address] 01/28/2026 8:00 AM CDT Office Visit [facility] Medical Group Multispecialty Care - [facility] [address] [place] [address] Reece Gamino DO [address] [place] [address] documented as of this encounter Visit Diagnoses Not on filedocumented in this encounter Additional Health Concerns Infection Onset Date Last Indicated Resolved Time COVID-19 Rule Out 01/04/2023 01/04/2023 01/04/2023 2:06 PM LACE BURN OUT TENDER COVID-19 Rule Out 01/04/2023 01/04/2023 01/06/2023 3:33 PM LACE BURN OUT TENDER COVID-19 Rule Out 02/07/2023 02/07/2023 02/07/2023 1:48 PM CDT COVID-19 Rule Out 02/07/2023 02/07/2023 02/08/2023 3:51 PM CDT COVID-19 Rule Out 04/08/2023 04/08/2023 04/08/2023 10:09 AM CDT COVID-19 Rule Out 04/08/2023 04/08/2023 04/09/2023 8:41 PM CDT COVID-19 Rule Out 04/24/2024 04/24/2024 04/24/2024 4:27 PM CDT COVID-19 Confirmed 04/24/2024 04/24/2024 12:32 AM CDT COVID-19 Rule Out 12/07/2024 12/07/2024 12/07/2024 12:28 PM LACE BURN OUT TENDER Influenza - Seasonal 12/07/2024 12/07/2024 025 12:32 AM LACE BURN OUT TENDER Assessment Noted Time PHQ-9 Depression Total Score: 19 020 11:34 AM LACE BURN OUT TENDER documented as of this encounter Care Teams Packing Shed Supervisor Relationship Specialty Start Date End Date Shanel Gudino NP [address] [place] [address] PCP - General NURSE PRACTITIONER 05/22/21 documented as of this encounter
--- OUTSIDE RECORDS SUMMARY | 2025-09-12 19:39 | XMS_ITS | Encounter Summary ---
Author Organization [facility] Address [address] [place] [address] Care Team Providers Care Energy Systems Engineer Name Role Phone Shanel Gudino NP Primary Care Provider +1 [phone] Encounter Details Date Type Department Care Team (Late st Contact Info) Description 01/25/2023 Veruta Message Enc [facility] Medical [facility] Family Medicine - [place] [address] [facility] [address] [place] [phone] Shanel Gudino, [place] [address] [place] [address] [place] [address] Blood in stool Social History Tobacco Use Types Packs/Day Years [...] on file Legal Sex Female 10:39 AM FRUIT INSPECTOR Gender Identity Not on file Sexual Orientation Not on file COVID-19 Exposure Response Date Recorded In the last 10 days, have yo u been in contact with someone who was confirmed or suspected to have Coronavirus/COVID-19? No / Unsure 01/20/2023 8:28 AM CDT documented as of this encounter Plan of Treatment Upcoming Encounters Date Type Department Care Team (Late st Contact Info) Description 10/02/2025 2:40 PM FRUIT INSPECTOR Office Visit [facility] Medical [facility] Family Medicine - [place] [address] [facility] [address] [place] [address] Shanel Gudino NP [address] [place] [address] 01/28/2026 8:00 AM CDT Office Visit [facility] Multispecialty Care - [facility] [address] [place] [address] Reece Gamino DO [address] [facility] [address] [place] [address] documented as of this encounter Visit Diagnoses Not on filedocumented in this encounter Additional Health Concerns Infection Onset Date Last Indicated Resolved Time COVID-19 Rule Out 02/07/2023 02/07/2023 02/07/2023 1:48 PM CDT COVID-19 Rule Out 02/07/2023 02/07/2023 02/08/2023 3:51 PM CDT COVID-19 Rule Out 04/08/2023 04/08/2023 04/08/2023 10:09 AM CDT COVID-19 Rule Out 04/08/2023 04/08/2023 04/09/2023 8:41 PM CDT COVID-19 Rule Out 04/24/2024 04/24/2024 04/24/2024 4:27 PM CDT COVID-19 Confirmed 04/24/2024 04/24/2024 12:32 AM CDT COVID-19 Rule Out 12/07/2024 12/07/2024 12/07/2024 12:28 PM FRUIT INSPECTOR Influenza - Seasonal 12/07/2024 12/07/2024 025 12:32 AM FRUIT INSPECTOR Assessment Noted Time PHQ-9 Depression Total Score: 19 020 11:34 AM FRUIT INSPECTOR documented as of this encounter Care Teams Energy Systems Engineer Relationship Specialty Start Date End Date Shanel Gudino NP [address] [place] [address] PCP - General NURSE PRACTITIONER 05/22/21 documented as of this encounter
--- OUTSIDE RECORDS SUMMARY | 2025-09-12 19:39 | XMS_ITS | Encounter Summary ---
Author Organization [facility] Address [address] [place] [address] Care Team Providers Care Mainframe Analyst Name Role Phone Shanel Gudino NP Primary Care Provider +1 [phone] Encounter Details Date Type Department Care Team (Late Contact Info) Description 11/04/2023 GeoMe [facility] Patient Accounts [address] [place] [address] [facility] Provider Action Required Social History Tobacco Use Types Packs/Day Years [...] on file Legal Sex Female 10:39 AM DESIGN QUALITY ENGINEER Gender Identity Not on file Sexual Orientation Not on file documented as of this encounter Plan of Treatment Upcoming Encounters Date Type Department Care Team (Late st Contact Info) Description 10/02/2025 2:40 PM DESIGN QUALITY ENGINEER [facility] Family [facility] - [place] [address] [facility] [address] [place] [phone] Shanel Gudino NP [address] [place], [place] [phone] 01/28/2026 8:00 AM CDT [facility] Care - [facility] [address] [place] [address] Klaus GaminovalerieDO [address] [place] [address] documented as of this encounter Visit Diagnoses Not on filedocumented in this encounter Additional Health Concerns Infection Onset Date Last Indicated Resolved Time COVID-19 Rule Out 04/24/2024 04/24/2024 04/24/2024 4:27 PM CDT COVID-19 Confirmed 04/24/2024 04/24/2024 12:32 AM CDT COVID-19 Rule Out 12/07/2024 12/07/2024 12/07/2024 12:28 PM DESIGN QUALITY ENGINEER Influenza - Seasonal 12/07/2024 12/07/2024 025 12:32 AM DESIGN QUALITY ENGINEER Assessment Noted Time PHQ-9 Depression Total Score: 19 020 11:34 AM DESIGN QUALITY ENGINEER documented as of this encounter Care Teams Mainframe Analyst Relationship Specialty Start Date End Date Shanel Gudino NP [address] [place] [address] PCP - General NURSE PRACTITIONER 05/22/21 documented as of this encounter
--- OUTSIDE RECORDS SUMMARY | 2025-09-12 19:39 | XMS_ITS | Encounter Summary ---
Author Organization [facility] Address [address] [place] [address] Care Team Providers Care Roping Machine Tender Name Role Phone Shanel Gudino NP Primary Care Provider +1 [phone] Encounter Details Date Type Department Care Team (Late Contact Info) Description 12/13/2024 Zapointt Message Enc [facility] Family Medicine [address] [place] [address] [phone] Shanel Gudino NP [address] [place] [address] [place] [address] Another prednisone round request Social History Tobacco Use Types Packs/Day Years [...] on file Legal Sex Female 10:39 AM BORDER MACHINE OPERATOR Gender Identity Not on file Sexual Orientation Not on file documented as of this encounter Plan of Treatment Upcoming Encounters Date Type Department Care Team (Late Contact Info) Description 10/02/2025 2:40 PM BORDER MACHINE OPERATOR Office Visit [place] [id number] [facility] [address] [place], [place] [phone] Shanel Gudino NP [address] [place] [address] 01/28/2026 8:00 AM CDT Office Visit [facility] Medical Group Multispecialty Care - [facility] [address] [place] [address] Reece Gamino DO [address] [facility] [address] [place] [address] documented as of this encounter Visit Diagnoses Not on filedocumented in this encounter Additional Health Concerns Infection Onset Date Last Indicated Resolved Time Influenza - Seasonal 12/07/2024 12/07/2024 025 12:32 AM BORDER MACHINE OPERATOR Assessment Noted Time PHQ-9 Depression Total Score: 19 020 11:34 AM BORDER MACHINE OPERATOR documented as of this encounter Care Teams Roping Machine Tender Relationship Specialty Start Date End Date Shanel Gudino NP [address] [place] [address] PCP - General NURSE PRACTITIONER 05/22/21 documented as of this encounter
--- OUTSIDE RECORDS SUMMARY | 2025-09-12 19:39 | XMS_ITS | Encounter Summary ---
Author Organization [facility] Address [address] [place] [address] Care Team Providers Care Crystallizer Operator Name Role Phone Suresh Reagan MD Primary Care Provider Shanel Rodrigues NP Primary Care Provider +1 [phone] Encounter Details Date Type Department Care Team (Late Contact Info) Description 05/19/2021 MyChart Message Enc [facility] Family Medicine [facility] [address] [facility] [address] [place] [address] Shanel Gudino NP [address] [place] [address] RE: Question Social History Tobacco Use Types Packs/Day Years [...] on file Legal Sex Female 10:39 AM PRODUCTION POSTING CLERK Gender Identity Not on file Sexual Orientation Not on file documented as of this encounter Plan of Treatment Upcoming Encounters Date Type Department Care Team (Late Contact Info) Description 10/02/2025 2:40 PM PRODUCTION POSTING CLERK Office Visit [facility] [address] [facility] [address] [place] [address] Shanel Gudino, [place] [address] [place] [address] 01/28/2026 8:00 AM CDT Office Visit [facility] Medical Group Multispecialty Care - [facility] [address] [place] [address] Reece Gamino DO [address] [facility] [address] [place] [address] documented as of this encounter Visit Diagnoses Not on filedocumented in this encounter Additional Health Concerns Infection Onset Date Last Indicated Resolved Time COVID-19 Rule Out 11/09/2021 11/09/2021 11/09/2021 9:30 AM PRODUCTION POSTING CLERK COVID-19 Rule Out 11/09/2021 11/09/2021 11/10/2021 2:34 PM PRODUCTION POSTING CLERK COVID-19 Rule Out 01/04/2023 01/04/2023 01/04/2023 2:06 PM PRODUCTION POSTING CLERK COVID-19 Rule Out 01/04/2023 01/04/2023 01/06/2023 3:33 PM PRODUCTION POSTING CLERK COVID-19 Rule Out 02/07/2023 02/07/2023 02/07/2023 1:48 PM CDT COVID-19 Rule Out 02/07/2023 02/07/2023 02/08/2023 3:51 PM CDT COVID-19 Rule Out 04/08/2023 04/08/2023 04/08/2023 10:09 AM CDT COVID-19 Rule Out 04/08/2023 04/08/2023 04/09/2023 8:41 PM CDT COVID-19 Rule Out 04/24/2024 04/24/2024 04/24/2024 4:27 PM CDT COVID-19 Confirmed 04/24/2024 04/24/2024 12:32 AM CDT COVID-19 Rule Out 12/07/2024 12/07/2024 12/07/2024 12:28 PM PRODUCTION POSTING CLERK Influenza - Seasonal 12/07/2024 12/07/2024 025 12:32 AM PRODUCTION POSTING CLERK Assessment Noted Time PHQ-9 Depression Total Score: 19 020 11:34 AM PRODUCTION POSTING CLERK documented as of this encounter Care Teams Crystallizer Operator Relationship Specialty Start Date End Date Suresh Reagan MD PCP - General FAMILY MEDICINE SPORTS MEDICINE 10/27/20 05/21/21 Shanel Gudino NP [address] [place] [address] PCP - General NURSE PRACTITIONER 05/22/21 documented as of this encounter
--- OUTSIDE RECORDS SUMMARY | 2025-09-12 19:39 | XMS_ITS | Encounter Summary ---
Author Organization [facility] Address [address] [place] [address] Care Team Providers Care Pigskin Trimmer Name Role Phone Shanel Gudino NP Primary Care Provider +1 -[phone] Encounter Details Date Type Department Care Team (Late Contact Info) Description 10/18/2024 Insane Logict Message Enc [facility] Family [address] [place] [phone] Shanel Gudino NP [address] [place] [address] [place] [address] ENT visit summary Social History Tobacco Use Types Packs/Day Years [...] on file Legal Sex Female 10:39 AM CERTIFIED MEDICAL BILLER Gender Identity Not on file Sexual Orientation Not on file documented as of this encounter Plan of Treatment Upcoming Encounters Date Type Department Care Team (Late Contact Info) Description 10/02/2025 2:40 PM CERTIFIED MEDICAL BILLER Office Visit [facility] [address] [facility] [address] [place], [place] [address] Shanel Gudino NP [address] [place] [address] 01/28/2026 8:00 AM CDT Office Visit [facility] Medical Group Multispecialty Care - [facility] [address] [facility] [address] [place] [address] Reece Gamino DO [address] [facility] [address] [place] [address] documented as of this encounter Visit Diagnoses Not on filedocumented in this encounter Additional Health Concerns Infection Onset Date Last Indicated Resolved Time COVID-19 Rule Out 12/07/2024 12/07/2024 12/07/2024 12:28 PM CERTIFIED MEDICAL BILLER Influenza - Seasonal 12/07/2024 12/07/2024 025 12:32 AM CERTIFIED MEDICAL BILLER Assessment Noted Time PHQ-9 Depression Total Score: 19 020 11:34 AM CERTIFIED MEDICAL BILLER documented as of this encounter Care Teams Pigskin Trimmer Relationship Specialty Start Date End Date Shanel Gudino NP [address] [place] [address] PCP - General NURSE PRACTITIONER 05/22/21 documented as of this encounter
--- OUTSIDE RECORDS SUMMARY | 2025-09-12 19:39 | XMS_ITS | Encounter Summary ---
Author Organization [facility] Address [address] [place] [address] Care Team Providers Care Unpaid Intern Name Role Phone Shanel Gudino NP Primary Care Provider +1 -[phone] Encounter Details Date Type Department Care Team (Late st Contact Info) Description 01/25/2023 Pyramid Screening Technology Message Enc [facility] Medical Group Family Medicine - [place] [address] [facility] [address] [place] [phone] Shanel Gudino, [place] [address] [place] [address] [place] [address] results Social History Tobacco Use Types Packs/Day [...] on file Legal Sex Female 10:39 AM CONCRETE STONE FINISHER Gender Identity Not on file Sexual Orientation [...] st Contact Info) Description 10/02/2025 2:40 PM CONCRETE STONE FINISHER Office Visit [facility] Medical [facility] Family Medicine - [place] [address] [facility] [address] [place] [address] Shanel Gudino NP [address] [place] [address] 01/28/2026 8:00 AM CDT Office Visit [facility] Multispecialty Care - [facility] [address] [facility] [address] [facility] [address] [place] [address] Reece Gamino DO [address] [facility] [address] [place] [address] documented as of this encounter Visit Diagnoses [...] Rule Out 12/07/2024 12/07/2024 12/07/2024 12:28 PM CONCRETE STONE FINISHER Influenza - Seasonal 12/07/2024 12/07/2024 025 12:32 AM CONCRETE STONE FINISHER Assessment Noted Time PHQ-9 Depression Total Score: 19 020 11:34 AM CONCRETE STONE FINISHER documented as of this encounter Care Teams Unpaid Intern Relationship Specialty Start Date End Date Shanel Gudino NP [address] [place] [address] PCP - General NURSE PRACTITIONER 05/22/21 documented as of this encounter
--- OUTSIDE RECORDS SUMMARY | 2025-09-12 19:39 | XMS_ITS | Encounter Summary ---
Author Organization [facility] Address [address] [place] [address] Care Team Providers Care Health And Safety Trainer Name Role Phone Shanel Gudino NP Primary Care Provider +1 -[phone] Encounter Details Date Type Department Care Team (Late st Contact Info) Description 12/01/2022 Devign Lab Message Enc [facility] Medical Group Family Medicine - [place] [address] [facility] [address] [place] [phone] Shanel Gudino, [place] [address] [place] [address] [place] [address] Sleep study results Social History Tobacco Use Types Packs/Day [...] on file Legal Sex Female 10:39 AM INSPECTOR LINE Gender Identity Not on file Sexual Orientation Not on file COVID-19 Exposure Response Date Recorded In the last 10 days, have yo u been in contact with someone who was confirmed or suspected to have Coronavirus/COVID-19? No / Unsure 11/29/2022 10:24 AM INSPECTOR LINE documented as of this encounter Plan of Treatment Upcoming Encounters Date Type Department Care Team (Late st Contact Info) Description 10/02/2025 2:40 PM INSPECTOR LINE Office Visit [facility] Family Medicine - [place] [address] [facility] [address] [place] [address] Shanel Gudino NP [address] [place] [address] 01/28/2026 8:00 AM CDT Office Visit [facility] Multispecialty Care - [facility] [address] [place] [address] Reece Gamino DO [address] [facility] [address] [place] [address] documented as of this encounter Visit Diagnoses Not on filedocumented in this encounter Additional Health Concerns Infection Onset Date Last Indicated Resolved Time COVID-19 Rule Out 01/04/2023 01/04/2023 01/04/2023 2:06 PM INSPECTOR LINE COVID-19 Rule Out 01/04/2023 01/04/2023 01/06/2023 3:33 PM INSPECTOR LINE COVID-19 Rule Out 02/07/2023 02/07/2023 02/07/2023 1:48 PM CDT COVID-19 Rule Out 02/07/2023 02/07/2023 02/08/2023 3:51 PM CDT COVID-19 Rule Out 04/08/2023 04/08/2023 04/08/2023 10:09 AM CDT COVID-19 Rule Out 04/08/2023 04/08/2023 04/09/2023 8:41 PM CDT COVID-19 Rule Out 04/24/2024 04/24/2024 04/24/2024 4:27 PM CDT COVID-19 Confirmed 04/24/2024 04/24/2024 12:32 AM CDT COVID-19 Rule Out 12/07/2024 12/07/2024 12/07/2024 12:28 PM INSPECTOR LINE Influenza - Seasonal 12/07/2024 12/07/2024 025 12:32 AM INSPECTOR LINE Assessment Noted Time PHQ-9 Depression Total Score: 19 020 11:34 AM INSPECTOR LINE documented as of this encounter Care Teams Health And Safety Trainer Relationship Specialty Start Date End Date Shanel Gudino NP [address] [place] [address] PCP - General NURSE PRACTITIONER 05/22/21 documented as of this encounter
--- OUTSIDE RECORDS SUMMARY | 2025-09-12 19:39 | XMS_ITS | Encounter Summary ---
Author Organization [facility] Address [address] [place] [address] Care Team Providers Care Tire Mechanic Name Role Phone Shanel Gudino NP Primary Care Provider [phone] [phone] Encounter Details Date Type Department Care Team (Late Contact Info) Description 04/02/2022 Telxhart Message Enc [facility] [address] [place] [address] [place] [address] Shanel Gudino NP [address] [place] [address] Increase in Prozac request Social History Tobacco Use Types Packs/Day [...] on file Legal Sex Female 10:39 AM FOOD INSPECTOR Gender Identity Not on file Sexual Orientation Not on file documented as of this encounter Plan of Treatment Upcoming Encounters Date Type Department Care Team (Late Contact Info) Description 10/02/2025 2:40 PM FOOD INSPECTOR Office Visit [facility] [address] [facility] [address] [place] [address] Shanel Gudino NP [address] [place] [address] 01/28/2026 8:00 AM CDT Office Visit [facility] Medical Group Multispecialty Care - [facility] [address] [place] [address] Reece Gamino DO [address] [facility] [address] [place] [address] documented as of this encounter Visit Diagnoses Not on filedocumented in this encounter Additional Health Concerns Infection Onset Date Last Indicated Resolved Time COVID-19 Rule Out 01/04/2023 01/04/2023 01/04/2023 2:06 PM FOOD INSPECTOR COVID-19 Rule Out 01/04/2023 01/04/2023 01/06/2023 3:33 PM FOOD INSPECTOR COVID-19 Rule Out 02/07/2023 02/07/2023 02/07/2023 1:48 PM CDT COVID-19 Rule Out 02/07/2023 02/07/2023 02/08/2023 3:51 PM CDT COVID-19 Rule Out 04/08/2023 04/08/2023 04/08/2023 10:09 AM CDT COVID-19 Rule Out 04/08/2023 04/08/2023 04/09/2023 8:41 PM CDT COVID-19 Rule Out 04/24/2024 04/24/2024 04/24/2024 4:27 PM CDT COVID-19 Confirmed 04/24/2024 04/24/2024 12:32 AM CDT COVID-19 Rule Out 12/07/2024 12/07/2024 12/07/2024 12:28 PM FOOD INSPECTOR Influenza - Seasonal 12/07/2024 12/07/2024 025 12:32 AM FOOD INSPECTOR Assessment Noted Time PHQ-9 Depression Total Score: 19 020 11:34 AM FOOD INSPECTOR documented as of this encounter Care Teams Tire Mechanic Relationship Specialty Start Date End Date Shanel Gudino NP [address] [place] [address] PCP - General NURSE PRACTITIONER 05/22/21 documented as of this encounter
--- OUTSIDE RECORDS SUMMARY | 2025-09-12 19:39 | XMS_ITS | Encounter Summary ---
Author Organization [facility] Address [address] [place] [address] Care Team Providers Care Apparel Pattern Maker Name Role Phone Shanel Gudino NP Primary Care Provider +1 -[phone] Encounter Details Date Type Department Care Team (Late Contact Info) Description 11/01/2024 Ebuzzing and Teadst Message Enc [address] [place] [address] [phone] Shanel Gudino NP [address] [place] [address] [place] [address] Follow up from antibiotics new/worsening Social History Tobacco Use Types Packs/Day Years [...] on file Legal Sex Female 10:39 AM CLARIFICATION OPERATOR Gender Identity Not on file Sexual Orientation Not on file documented as of this encounter Plan of Treatment Upcoming Encounters Date Type Department Care Team (Late Contact Info) Description 10/02/2025 2:40 PM CLARIFICATION OPERATOR Office Visit [place] [phone] [facility] [address] [place] [address] Shanel Gudino NP [address] [place] [address] 01/28/2026 8:00 AM CDT Office Visit [facility] Medical Group Multispecialty Care - [facility] [address] [facility] [address] [place] [address] Reece Gamino DO [address] [facility] [address] [place] [address] documented as of this encounter Visit Diagnoses Not on filedocumented in this encounter Additional Health Concerns Infection Onset Date Last Indicated Resolved Time COVID-19 Rule Out 12/07/2024 12/07/2024 12/07/2024 12:28 PM CLARIFICATION OPERATOR Influenza - Seasonal 12/07/2024 12/07/2024 025 12:32 AM CLARIFICATION OPERATOR Assessment Noted Time PHQ-9 Depression Total Score: 19 020 11:34 AM CLARIFICATION OPERATOR documented as of this encounter Care Teams Apparel Pattern Maker Relationship Specialty Start Date End Date Shanel Gudino NP [address] [place] [address] PCP - General NURSE PRACTITIONER 05/22/21 documented as of this encounter
--- OUTSIDE RECORDS SUMMARY | 2025-09-12 19:39 | XMS_ITS | Encounter Summary ---
Author Organization [facility] Address [address] [place] [address] Care Team Providers Care Lift Electrician Name Role Phone Shanel Gudino NP Primary Care Provider [phone] Encounter Details Date Type Department Care Team (Late Contact Info) Description 08/15/2024 Rhino Accountingt Message Enc [address] [place] [address] [phone] Shanel Gudino NP [address] [address] Yearly well visit Social History Tobacco Use Types Packs/Day [...] on file Legal Sex Female 10:39 AM SIPHONER Gender Identity Not on file Sexual Orientation Not on file documented as of this encounter Plan of Treatment Upcoming Encounters Date Type Department Care Team (Late Contact Info) Description 10/02/2025 2:40 PM SIPHONER Office Visit [place] [phone] [facility] [address] [place], [place] [phone] Shanel Gudino NP [address] [place] [address] 01/28/2026 8:00 AM CDT Office Visit [facility]ialty Care - [facility] [address] [facility] [place] [address] Reece Gamino DO [address] [place] [address] documented as of this encounter Visit Diagnoses Not on filedocumented in this encounter Additional Health Concerns Infection Onset Date Last Indicated Resolved Time COVID-19 Rule Out 12/07/2024 12/07/2024 12/07/2024 12:28 PM SIPHONER Influenza - Seasonal 12/07/2024 12/07/2024 025 12:32 AM SIPHONER Assessment Noted Time PHQ-9 Depression Total Score: 19 020 11:34 AM SIPHONER documented as of this encounter Care Teams Lift Electrician Relationship Specialty Start Date End Date Shanel Gudino NP [address] [place] [address] PCP - General NURSE PRACTITIONER 05/22/21 documented as of this encounter
--- OUTSIDE RECORDS SUMMARY | 2025-09-12 19:39 | XMS_ITS | Encounter Summary ---
Author Organization [facility] Address [address] [place] [address] Care Team Providers Care Recovery Agent Name Role Phone Shanel Gudino NP Primary Care Provider [phone] Encounter Details Date Type Department Care Team (Late Contact Info) Description 07/19/2021 DoNationt Message Enc [facility] [address] [place] [address] [phone] Shanel Gudino NP [address] [place] [address] RE: Question Social History Tobacco [...] on file Legal Sex Female 10:39 AM STRIPPER PRINTED CIRCUIT BOARDS Gender Identity Not on file Sexual Orientation Not on file documented as of this encounter Plan of Treatment Upcoming Encounters Date Type Department Care Team (Late Contact Info) Description 10/02/2025 2:40 PM STRIPPER PRINTED CIRCUIT BOARDS Office Visit [facility] [address] [facility] [address] [place], [place] [phone] Shanel Gudino NP [address] [place] [address] 01/28/2026 8:00 AM CDT Office Visit [facility] Multispecialty Care - [facility] [address] [place] [address] Reece Gamino DO [address] [place] [address] documented as of this encounter Visit Diagnoses Not on filedocumented in this encounter Additional Health Concerns Infection Onset Date Last Indicated Resolved Time COVID-19 Rule Out 11/09/2021 11/09/2021 11/09/2021 9:30 AM STRIPPER PRINTED CIRCUIT BOARDS COVID-19 Rule Out 11/09/2021 11/09/2021 11/10/2021 2:34 PM STRIPPER PRINTED CIRCUIT BOARDS COVID-19 Rule Out 01/04/2023 01/04/2023 01/04/2023 2:06 PM STRIPPER PRINTED [employer] BOARDS COVID-19 Rule Out 01/04/2023 01/04/2023 01/06/2023 3:33 PM STRIPPER PRINTED CIRCUIT BOARDS COVID-19 Rule Out 02/07/2023 02/07/2023 02/07/2023 1:48 PM CDT COVID-19 Rule Out 02/07/2023 02/07/2023 02/08/2023 3:51 PM CDT COVID-19 Rule Out 04/08/2023 04/08/2023 04/08/2023 10:09 AM CDT COVID-19 Rule Out 04/08/2023 04/08/2023 04/09/2023 8:41 PM CDT COVID-19 Rule Out 04/24/2024 04/24/2024 04/24/2024 4:27 PM CDT COVID-19 Confirmed 04/24/2024 04/24/2024 12:32 AM CDT COVID-19 Rule Out 12/07/2024 12/07/2024 12/07/2024 12:28 PM STRIPPER PR[employer] BOARDS Influenza - Seasonal 12/07/2024 12/07/2024 025 12:32 AM STRIPPER PRINTED [employer] BOARDS Assessment Noted Time PHQ-9 Depression Total Score: 19 020 11:34 AM STRIPPER PRINTED CIRCUIT BOARDS documented as of this encounter Care Teams Recovery Agent Relationship Specialty Start Date End Date Shanel Gudino NP [address] [place] [address] PCP - General NURSE PRACTITIONER 05/22/21 documented as of this encounter
--- OUTSIDE RECORDS SUMMARY | 2025-09-12 19:39 | XMS_ITS | Clinical Summary ---
Author Organization [facility] Address [address] [place] [address] Care Team Providers Care Security Officer Supervisor Name Role Phone Radha Miller MD Primary Care Provider [phone] Kirk Cheung MD Unavailable [phone] Source Comments [facility],non-owned Affiliates and Associated Physician Practices is amultiple site organization consisting of ambulatory clinics and hospital sitesin [place], [place], [place] and [place]. This disclosure is being madepursuant to the Care Everywhere program and may not contain all information available regarding this patient. Last updated 18.[facility] Allergies Active Allergy Reactions Criticality Noted Date Comments Ciprofloxacin Diarrhea Low 09/23/2016 Medications * Be aware that medications may not be up to date on this document. Alwaysverify current medications with the patient. hydrOXYzine hcl (ATARAX) 25 MG tabletIndicatio ns:Anxiety Neurosis (Inactive) Take 1 tab po bid prn Reasons: Anxiety Neurosis 60 Tab 0 08/17/2016 Active FLUoxetine (PROZAC) 40 MG capsule Take 1 capsule by mouth every morning 30 capsule 2 10/03/2018 Active montelukast (SINGULAIR) 10 MG tablet Take 10 mg by mouth at bedtime Active busPIRone HCl (BUSPAR PO) Active Active Problems Problem Noted Date Diagnosed Date Recurrent major depressive disorder 08/17/2016 Generalized anxiety disorder 08/17/2016 Resolved Problems Problem Noted Date Diagnosed Date Resolved Date Encounter for initial prescr iption of implantable subdermal contraceptive 03/15/201708/08 Need for vaccination 09/16/2016 017 Vaginal bleeding problems 09/16/2016 Immunizations Immunization Administration Dates Next Due DTaP VACCINE IM (6wk-6yrs) 06/11/2005,,07/20/1994,1991,1991 HEP B VACCINE, PED/ADOL 07/09/1993,09/15/1992, HIB-PRP-OMP 3 DOSE 07/20/1994,01/01/1992, 991 Human Papilloma Virus Chasity valent Vaccine 09/16/2016 Human Papilloma Virus Vaccine 08/05/2009, 008 INFLUENZA VACCINE 09/14/2018,08/30/2017 INFLUENZA VACCINE, QUADR. (F LUZONE; FLULAVAL; FLUARIX; AFLURIA QUADRIVALENT; 6MO+), 0.5 ML (IIV4) 09/16/2016 MMR 03/19/1996,07/20/1994 POLIO IPV 03/19/1996, 4,01/01/1992,1990,1991 TD VACCINE 06/11/2005 TDAP (7yrs+) 11/21/2017 Family History Medical History Relation Name Comments Hypertension Father Heart Disease Mother Hypertension Mother Depression Other MATERNAL AUNT Depression Sister Relation Name Status Comments Brother Alive Father Alive Mother Alive Other MATERNAL AUNT Sister Alive Social History Tobacco Use Types Packs/Day Years Used Date Smoking Tobacco: Never Smokeless Tobacco: Never Tobacco Cessation:Counseling Given: Yes Alcohol Use Standard Drinks/Week Comments Yes 0 (1 standard drink = 0.6 oz pur e alcohol) not even weekly Comments No Sex and Gender Information Value Date Recorded Sex Assigned at Not on file Legal Sex Female 5:50 AM REIMBURSEMENT COORDINATOR Gender Identity Not on file Sexual Orientation Not on file 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 Not on file Not on file Not on file Last Filed Vital Signs Vital Sign Reading Time Taken Comments Blood Pressure 124/82 04/22/2020 3:34 PM CDT Pulse 100 04/22/2020 3:34 PM CDT Temperature 37.1 C (98.7 F) 04/22/2020 3:34 PM CDT Respiratory Rate 16 04/22/2020 3:34 PM CDT Oxygen Saturation 98% 04/22/2020 3:34 PM CDT Inhaled Oxygen Concentration - - Weight 78 kg (172 lb) 04/22/2020 3:34 PM CDT Height 160 cm (5' 3) 04/22/2020 3:34 PM CDT Body Mass Index 30.47 04/22/2020 3:34 PM CDT Plan of Treatment Health Maintenance Due Date Last Done Comments HIV SCREENING 2006 HEPATITIS C SCREENING 03/12/2009 DEPRESSION SCREENING 11/07/2024 COVID-19 VACCINE ( season) 2025 INFLUENZA VACCINE (#1) 2025 8, 08/30/2017, 09/16/2016 DTAP/TDAP/TD VACCINES (8 - Td or Tdap) 11/21/2027 11/21/2017, 06/11/2005, 06/11/2005, Additional history exists ZOSTER VACCINE (1 of 2) 2041 HEPATITIS B VACCINE Completed 07/09/1993, 09/15/1992, 07/24/1992 HIB VACCINE Completed 07/20/1994, 12/09, 1991 HPV VACCINE Completed 09/16/2016, 07/09, 06/11/2008 MENINGOCOCCAL (Group B) VACCINE SHARED DECISION-MAKING Aged Out No longer eligible based on patient's age to complete this topic MENINGOCOCCAL GROUPS A/C/Y/W VACCINE Aged Out No longer eligible based on patient's age to complete this topic PNEUMOCOCCAL VACCINE Aged Out No long er eligible based on patient's age to complete this topic Insurance [facility] Care Teams Security Officer Supervisor Relationship Specialty Start Date End Date Radha Miller MD [address] [place] [address] PCP - General Family Medicine 04/22/20 Kirk Cheung MD [address] [place] [address] Family Medicine 04/22/20
--- OUTSIDE RECORDS SUMMARY | 2025-09-12 19:39 | XMS_ITS | Clinical Summary ---
Author Organization [facility] Address [facility] [place] [address] Phone Care Team Providers Care Flight Operations Specialist Name Role Phone Unavailable Primary Care Provider Unavailabl e Allergies Active Allergy Reactions Criticality Noted Date Comments Ciprofloxacin Diarrhea Low 02/05/2015 Medications fluticasone furoate (FLONASE SENSIMIST BOTH NOSTRIL) Administer in each nostril. Active vit no.124/iron/folic ( VITAMIN ORAL) Take 1 Tablet by mouth daily. Active albuterol (PROVENTIL,VENTOL IN) 0.63 mg/3 mL Solution for Nebulization 2 Active hydrocortisone (PROCTOZONE-HC) 2.5 % cream with perineal applicator APPLY EVERY 6 HOURS NEEDED 2 Active montelukast (SINGULAIR) 10 mg tablet 2 Active FLUoxetine (PROzac) 40 mg capsule 2 Active Active Problems Problem Noted Date Diagnosed Date S/P section 08/30/2019 Immunizations Immunization Administration Dates Next Due (ADACEL/BOOSTRIX)(10 YR UP) TDAP VACCINE, 0.5ML, IM 08/31/2019,11/21/2017 (GARDASIL)(9-45 YRS) HUMAN PAPILLOMAVIRUS VACCINE, TYPES 6, 11, 16, 18, QUADRIVALENT (4VHPV), 3 DOSE, IM 09/16/2016 (INFANRIX)(6 WKS-6 YRS) DIPT HERIA, TETANUS TOXOIDS, AND ACCELLULAR PERTUSSIS VACCINE (DTAP), 0.5 ML IM 06/11/2005,03/19/1996,07/20/1994,01/01,1991 (IPOL)(6 WKS AND UP) POLIOVI FRANTZ VACCINE, INACTIVATED (IPV), 3 DOSE, SUBCUT OR IM 03/19/1996,07/20/1994,01/01/1992,08/13,1991 (M-M-R II/PRIORIX)(12 MO UP) MEASLES, MUMPS AND RUBELLA VIRUS VACCINE, 0.5 ML IM/SUBCUT 03/19/1996,07/20/1994 (PEDVAXHIB)(2 - 71 MOS) HIB PRP-OMP VACCINE, 3 DOSE, 0.5 ML IM0] 07/20/1994,01/01/1992,1991 (RECOMBIVAX HB/ENGERIX-B)(0- 19 YRS) HEPATITIS B VACCINE 5 MCG/0.5 ML OR 10 MCG/0.5 ML PED OR ADOL 3 DOSE (PF), IM 07/09/1993,09/15/1992,07/24/1992 (TDVAX)(7 YRS UP) TETANUS AN D DIPHTHERIA TOXOIDS, ADSORBED (2 LF OF TETANUS TOXOID AND 2 LF OF DIPHTHERIA TOXOID), 0.5ML (PF), IM 06/11/2005 Diptheria, Tetanus Toxoids, And Whole Cell Pertussis Vaccine (DTP), for intramuscular use 03/19/1996,07/20/1994,01/01/1992,08/13,1991 HPV, Unspecified Formulation 08/05/2009,06/11/20 08 INFLUENZA VACCINE QUADRIVALE NT 6 MOS UP PF IM 09/16/2016 Influenza Seasonal Unspecifi ed Formulation IM 08/21/2019 Influenza, Unspecified Formulation 08/21,09/14/2018,08/30/2017,09/16 Td(adult) Unspecified Formulation 06/11/2005 Family History Medical History Relation Name Comments Healthy Father Heart Disease Mother Relation Name Status Comments Father Alive Mother Alive Social History Tobacco Use Types Packs/Day Years Used Date Smoking Tobacco: Never Smokeless Tobacco: Never Tobacco Cessation:Counseling Given: Not Answered Alcohol Use Standard Drinks/Week Comments Yes 0 (1 standard drink = 0.6 oz pur e alcohol) Comments No Sex and Gender Information Value Date Recorded Sex Assigned at Not on file Legal Sex Female 3:35 AM CUPOLA TENDER Gender Identity Not on file Sexual Orientation Not on file Last Filed Vital Signs Vital Sign Reading Time Taken Comments Blood Pressure 112/84 09/28/2022 10:28 AM CUPOLA TENDER Pulse 78 05/23/2022 7:52 AM CDT Temperature 36.8 C (98.2 F) 05/23/2022 7:52 AM CDT Respiratory Rate 18 05/23/2022 7:52 AM CDT Oxygen Saturation 98% 05/21/2022 7:36 AM CDT Inhaled Oxygen Concentration - - Weight 84.8 kg (187 lb) 09/28/2022 10:28 AM CUPOLA TENDER Height 158.8 cm (5' 2.5) 08/23/2022 10:41 AM CD T Body Mass Index 33.66 08/23/2022 10:41 AM CDT Plan of Treatment Health Maintenance Due Date Last Done Comments INFLUENZA VACCINE (#1) 2025 08/21/2019, 2015 PAP SMEAR 08/23/2025 08/23/2022, 08/21/2020 CERVICAL CANCER SCREENING 08/23/2027 HPV/Cotest (21-29) 08/23/2027 08/23/2022 HPV/Cotest (30-65) 08/23/2027 08/23/2022 DTAP/TDAP/TD VACCINES (11 - Td or Tdap) 08/31/2029 08/31/2019, 11/21/2017, 06/11/2005, Additional history exists HEPATITIS B VACCINES Completed 07/09/1993, 09/15/1992, 07/24/1992 HPV VACCINES Completed 09/16/2016, 07/09, 06/11/2008 Procedures Procedure Name Priority Date/Time Associated Diagnosis Comments CERV/VAG CYTO SCREEN PAP RLFX HPV Routine 08/23/2022 10:56 AM CDT Encounter for gynecological examination without abnormal finding from Last 3 Months or Most Recently Relevant to Health Maintenance Results * CERV/VAG CYTO SCREEN PAP RLFX HPV (08/23/2022 10:56 AM CDT) CLINICAL INFORMATION [facility] Comment:None given LAST MENSTRUAL PERIOD [facility] Comment:NONE GIVEN PREV PAP: Parrish Hicks Comment:NONE GIVEN PREV BX: Parrish Hicks Comment:NONE GIVEN SOURCE Parrish Hicks Comment:Endocervix ADEQUACY: Parrish Hicks Comment: Satisfactory for evaluation. Endocervical/transformation zone component present. Age and/or menstrual status not provided PAP INTERP Parrish Hicks Comment:Negative for intraep ithelial lesion or malignancy. COMMENT (PAP TEST) Q uest Mechelle Hicks Comment: This Pap test has been evaluated with computer assisted technology. EXTRACTOR MACHINE OPERATOR: Cristo Hicks Comment: JAF, CT(ASCP) CT Screening Location: [place] [address] Administration MIRNA Chang [address] REVIEW EXTRACTOR MACHINE OPERATOR: Parrish Hicks Comment: GARZA, CT(ASCP) CT Screening location: [facility] Administration MIRNA Chang [facility] EXPLANATORY NOTE Que st Mechelle Hicks Comment: EXPLANATORY NOTE: The Pap is a screening test for cervical cancer. It is not a diagnostic test and is subject to false negative and false positive results. It is most reliable when a satisfactory sample, regularly obtained, is submitted with relevant clinical findings and history, and when the Pap result is evaluated along with historic and current clinical information. Test Performed at: [place] [address] Administration MIRNA Chakraborty [address] [facility] SWAB OF ENDOCERVIX / Unknown 08/23/2022 10:56 AM CDT 08/23/2022 11:48 PM CDT Jan Nolan MD PATHOLOGY/CYTOLOGY ORD ERABLES Final Result [facility] [phone] [facility] [place] [address] Administration MIRNA Chakraborty [address] from Last 3 Months or Most Recently Relevant to Health Maintenance Insurance [employer] OPEN ACCESS RX [employer] [place] [employer] (INTERNAL) [facility] Internal Plans Advance Directives For more information, please contact: [phone] * Full Code (Latest Code Status on File) Date Activated Date Inactivated Comments 05/20/2022 4:15 PM 05/23/2022 2:58 PM * Full Code Date Activated Date Inactivated Comments 02/28/2022 7:24 PM 02/28/2022 11:30 PM * Full Code Date Activated Date Inactivated Comments 08/28/2019 3:31 PM 09/01/2019 2:31 PM * Full Code Date Activated Date Inactivated Comments 08/28/2019 9:49 AM 08/28/2019 3:31 PM
[2025-09-12] MEDS: BELLADONNA ALK/PHENOB ELIX 10 ML, MAG HYDROX/ALUMINUM HYD/SIMETH 30 ML, LIDOCAINE 2% VI... PO (19:44)
--- NOTE | 2025-09-12 20:58 | PC.NURSE ---
Pt states she her eyes are feeling dizzy. MD notified verbal order for meclizine.
[2025-09-12] MEDS: MECLIZINE HCL 25 MG TABLET PO (21:01)
--- OUTSIDE RECORDS SUMMARY | 2025-09-12 21:12 | XMS_ITS | Encounter Summary ---
Author Organization [facility] Address [address] [place] [address] Care Team Providers Care Food Safety Manager Name Role Phone Shanel Gudino NP Primary Care Provider [phone] Encounter Details Date Type Department Care Team (Late Contact Info) Description 06/14/2023 Urgent.lyt Message Enc [facility] Family Medicine [address] [place] [address] [phone] Shanel Gudino NP [address] [place] [address] Holter Monitor results Social History [...] on file Legal Sex Female 10:39 AM GOLD LAYER Gender Identity Not on file Sexual Orientation Not on file documented as of this encounter Plan of Treatment Upcoming Encounters Date Type Department Care Team (Late Contact Info) Description 10/02/2025 2:40 PM GOLD LAYER Office Visit [address] [place], [place] [phone] Shanel Gudino NP [address] [place] [address] 01/28/2026 8:00 AM CDT Office Visit [facility] Multispecialty Care - [facility] [address] [place] [address] Reece Gamino DO [address] [place] [address] documented as of this encounter Visit Diagnoses Not on filedocumented in this encounter Additional Health Concerns Infection Onset Date Last Indicated Resolved Time COVID-19 Rule Out 04/24/2024 04/24/2024 04/24/2024 4:27 PM CDT COVID-19 Confirmed 04/24/2024 04/24/2024 12:32 AM CDT COVID-19 Rule Out 12/07/2024 12/07/2024 12/07/2024 12:28 PM GOLD LAYER Influenza - Seasonal 12/07/2024 12/07/2024 025 12:32 AM GOLD LAYER Assessment Noted Time PHQ-9 Depression Total Score: 19 020 11:34 AM GOLD LAYER documented as of this encounter Care Teams Food Safety Manager Relationship Specialty Start Date End Date Shanel Gudino NP [address] [place] [address] PCP - General NURSE PRACTITIONER 05/22/21 documented as of this encounter
--- OUTSIDE RECORDS SUMMARY | 2025-09-12 21:13 | XMS_ITS | Encounter Summary ---
Author Organization [facility] Address [address] [place] [address] Care Team Providers Care Tile Designer Name Role Phone Shanel Gudino NP Primary Care Provider [phone] Encounter Details Date Type Department Care Team (Late Contact Info) Description 08/15/2024 FAB BAGt Message Enc [address] [place] [address] [phone] Shanel Gudino NP [address] [address] Yearly well visit Social History [...] on file Legal Sex Female 10:39 AM BACK LINE COOK Gender Identity Not on file Sexual Orientation Not on file documented as of this encounter Plan of Treatment Upcoming Encounters Date Type Department Care Team (Late Contact Info) Description 10/02/2025 2:40 PM BACK LINE COOK Office Visit [place] [phone] [facility] [address] [place], [place] [address] Shanel Gudino NP [address] [place] [address] 01/28/2026 8:00 AM CDT Office Visit [facility]ialty Care - [facility] [address] [facility] [place] [address] Reece Gamino DO [address] [place] [address] documented as of this encounter Visit Diagnoses Not on filedocumented in this encounter Additional Health Concerns Infection Onset Date Last Indicated Resolved Time COVID-19 Rule Out 12/07/2024 12/07/2024 12/07/2024 12:28 PM BACK LINE COOK Influenza - Seasonal 12/07/2024 12/07/2024 025 12:32 AM BACK LINE COOK Assessment Noted Time PHQ-9 Depression Total Score: 19 020 11:34 AM BACK LINE COOK documented as of this encounter Care Teams Tile Designer Relationship Specialty Start Date End Date Shanel Gudino NP [address] [place] [address] PCP - General NURSE PRACTITIONER 05/22/21 documented as of this encounter
--- OUTSIDE RECORDS SUMMARY | 2025-09-12 21:13 | XMS_ITS | Encounter Summary ---
Author Organization [facility] Address [address] [place] [address] Care Team Providers Care Surg Physician Asst Name Role Phone Lauryn Ryan MD Primary Care Provid er Encounter Details Date Type Department Care Team (Late st Contact Info) Description 07/29/1998 Outpatient Historical [facility] [place] [address] [place] [address] Social History Tobacco Use Types Packs/Day Years Used Date Smoking Tobacco: Never Assessed Comments Unknown Sex and Gender Information Value Date Recorded Sex Assigned at Not on file Legal Sex Female 3:35 AM SOCIAL WORK FACULTY MEMBER Gender Identity Not on file Sexual Orientation Not on file documented as of this encounter Plan of Treatment Not on file documented as of this encounter Visit Diagnoses Not on filedocumented in this encounter Care Teams Surg Physician Asst Relationship Specialty Start Date End Date Lauryn Ryan MD [address] [place] [phone] PCP - General 01/04/13 08/06/19 documented as of this encounter
--- OUTSIDE RECORDS SUMMARY | 2025-09-12 21:13 | XMS_ITS | Encounter Summary ---
Author Organization [facility] Address [address] [place] [address] Care Team Providers Care Art Installer Name Role Phone Shanel Gudino NP Primary Care Provider [phone] Encounter Details Date Type Department Care Team (Late st Contact Info) Description 08/30/2024 [employer] Message Enc [facility] Family Medicine - [place] [address] [phone] Shanel Gudino NP [address] [phone] Labs requested before visit Social History Tobacco [...] on file Legal Sex Female 10:39 AM PRESS SET UP Gender Identity Not on file Sexual Orientation [...] know I have never ordered CYP2D6 or [id number] test before so hold off on those will discuss more about what she has going on at her visit. documented in this encounter Plan of Treatment Upcoming Encounters Date Type Department Care Team (Late st Contact Info) Description 10/02/2025 2:40 PM PRESS SET UP Office Visit [facility] Family Medicine - [place] [address] [facility] [address] [place] [address] Shanel Gudino NP [address] [place] [address] 01/28/2026 8:00 AM CDT Office Visit [facility] Multispecialty Care - [facility] [address] [place] [address] Reece Gamino DO [address] [place] [address] documented as of this encounter Visit Diagnoses Not on filedocumented in this encounter Additional Health Concerns Infection Onset Date Last Indicated Resolved Time COVID-19 Rule Out 12/07/2024 12/07/2024 12/07/2024 12:28 PM PRESS SET UP Influenza - Seasonal 12/07/2024 12/07/2024 025 12:32 AM PRESS SET UP Assessment Noted Time PHQ-9 Depression Total Score: 19 020 11:34 AM PRESS SET UP documented as of this encounter Care Teams Art Installer Relationship Specialty Start Date End Date Shanel Gudino NP [address] [place] [address] PCP - General NURSE PRACTITIONER 05/22/21 documented as of this encounter
--- OUTSIDE RECORDS SUMMARY | 2025-09-12 21:13 | XMS_ITS | Encounter Summary ---
Author Organization [facility] Address [address] [place] [address] Care Team Providers Care Bankruptcy Judge Name Role Phone Shanel Gudino NP Primary Care Provider [phone] [phone] Encounter Details Date Type Department Care Team (Late Contact Info) Description 07/19/2021 Jedox AGt Message Enc [facility] Family Medicine [address] [place] [address] [phone] Shanel Gudino NP [address] [place] [address] RE: Question Social History Tobacco [...] on file Legal Sex Female 10:39 AM REGISTRATION CLERK Gender Identity Not on file Sexual Orientation Not on file documented as of this encounter Plan of Treatment Upcoming Encounters Date Type Department Care Team (Late Contact Info) Description 10/02/2025 2:40 PM REGISTRATION CLERK Office Visit [facility] [address] [facility] [address] [place], [place] [phone] Shanel Gudino NP [address] [place] [address] [place] [address] 01/28/2026 8:00 AM CDT Office Visit [facility] Medical Group Multispecialty Care - [facility] [address] [place] [address] Reece Gamino DO [address] [place] [address] documented as of this encounter Visit Diagnoses Not on filedocumented in this encounter Additional Health Concerns Infection Onset Date Last Indicated Resolved Time COVID-19 Rule Out 11/09/2021 11/09/2021 11/09/2021 9:30 AM REGISTRATION CLERK COVID-19 Rule Out 11/09/2021 11/09/2021 11/10/2021 2:34 PM REGISTRATION CLERK COVID-19 Rule Out 01/04/2023 01/04/2023 01/04/2023 2:06 PM REGISTRATION CLERK COVID-19 Rule Out 01/04/2023 01/04/2023 01/06/2023 3:33 PM REGISTRATION CLERK COVID-19 Rule Out 02/07/2023 02/07/2023 02/07/2023 1:48 PM CDT COVID-19 Rule Out 02/07/2023 02/07/2023 02/08/2023 3:51 PM CDT COVID-19 Rule Out 04/08/2023 04/08/2023 04/08/2023 10:09 AM CDT COVID-19 Rule Out 04/08/2023 04/08/2023 04/09/2023 8:41 PM CDT COVID-19 Rule Out 04/24/2024 04/24/2024 04/24/2024 4:27 PM CDT COVID-19 Confirmed 04/24/2024 04/24/2024 12:32 AM CDT COVID-19 Rule Out 12/07/2024 12/07/2024 12/07/2024 12:28 PM REGISTRATION CLERK Influenza - Seasonal 12/07/2024 12/07/2024 025 12:32 AM REGISTRATION CLERK Assessment Noted Time PHQ-9 Depression Total Score: 19 020 11:34 AM REGISTRATION CLERK documented as of this encounter Care Teams Bankruptcy Judge Relationship Specialty Start Date End Date Shanel Gudino NP [address] [place] [address] PCP - General NURSE PRACTITIONER 05/22/21 documented as of this encounter
--- OUTSIDE RECORDS SUMMARY | 2025-09-12 21:13 | XMS_ITS | Encounter Summary ---
Author Organization [facility] Address [address] [place] [address] Care Team Providers Care Solid Waste Disposal Manager Name Role Phone Shanel Gudino NP Primary Care Provider +1 [phone] Encounter Details Date Type Department Care Team (Latest Contact Info) Description 05/12/2023 Sound2Light Productionst Message Enc [address] [place] [address] Shanel Gudino NP [address] [place] [address] Update from GI and Customer Care Consultant specialist Social History Tobacco Use Types Packs/Day [...] on file Legal Sex Female 10:39 AM SPINDLE FRAME CARVER Gender Identity Not on file Sexual Orientation Not on file documented as of this encounter Plan of Treatment Upcoming Encounters Date Type Department Care Team (Late st Contact Info) Description 10/02/2025 2:40 PM SPINDLE FRAME CARVER Office Visit [facility] [address] [facility] [address] [place] [address] Shanel Gudino NP [address] [place] [address] 01/28/2026 8:00 AM CDT Office Visit [facility] Medical Group Multispecialty Care - [facility] [address] [place] [address] Reece Gamino DO [address] [place] [address] documented as of this encounter Visit Diagnoses Not on filedocumented in this encounter Additional Health Concerns Infection Onset Date Last Indicated Resolved Time COVID-19 Rule Out 04/24/2024 04/24/2024 04/24/2024 4:27 PM CDT COVID-19 Confirmed 04/24/2024 04/24/2024 12:32 AM CDT COVID-19 Rule Out 12/07/2024 12/07/2024 12/07/2024 12:28 PM SPINDLE FRAME CARVER Influenza - Seasonal 12/07/2024 12/07/2024 025 12:32 AM SPINDLE FRAME CARVER Assessment Noted Time PHQ-9 Depression Total Score: 19 020 11:34 AM SPINDLE FRAME CARVER documented as of this encounter Care Teams Solid Waste Disposal Manager Relationship Specialty Start Date End Date Shanel Gudino NP [address] [place] [address] PCP - General NURSE PRACTITIONER 05/22/21 documented as of this encounter
--- OUTSIDE RECORDS SUMMARY | 2025-09-12 21:13 | XMS_ITS | Encounter Summary ---
Author Organization [facility] Address [address] [place] [address] Care Team Providers Care Retail Loan Officer Name Role Phone Shanel Gudino NP Primary Care Provider +1 [phone] Encounter Details Date Type Department Care Team (Late Contact Info) Description 11/09/2021 [employer] Message Enc [facility] Medical Group Family Medicine - [place] [address] [facility] [address] [place] [phone] Shanel Gudino, PRESLEY [address] [place] [address] [place] [address] Update on current condition Social History [...] on file Legal Sex Female 10:39 AM ROOM WORKER Gender Identity Not on file Sexual Orientation Not on file COVID-19 Exposure Response Date Recorded In the last month, have you been in contact with someone who was confirmed or suspected to have Coronavirus / COVID-19? No / Unsure 11/07/2021 5:05 PM ROOM WORKER documented as of this encounter Plan of Treatment Upcoming Encounters Date Type Department Care Team (Late Contact Info) Description 10/02/2025 2:40 PM ROOM WORKER Office Visit [facility] Family Medicine - [place] [address] [facility] [address] [place] [address] Shanel Gudino NP [address] [place] [address] 01/28/2026 8:00 AM CDT Office Visit [facility] Multispecialty Care - [facility] [address] [place] [address] Reece Gamino DO [address] [facility] [address] [place] [address] documented as of this encounter Visit Diagnoses Not on filedocumented in this encounter Additional Health Concerns Infection Onset Date Last Indicated Resolved Time COVID-19 Rule Out 11/09/2021 11/09/2021 11/09/2021 9:30 AM ROOM WORKER COVID-19 Rule Out 11/09/2021 11/09/2021 11/10/2021 2:34 PM ROOM WORKER COVID-19 Rule Out 01/04/2023 01/04/2023 01/04/2023 2:06 PM ROOM WORKER COVID-19 Rule Out 01/04/2023 01/04/2023 01/06/2023 3:33 PM ROOM WORKER COVID-19 Rule Out 02/07/2023 02/07/2023 02/07/2023 1:48 PM CDT COVID-19 Rule Out 02/07/2023 02/07/2023 02/08/2023 3:51 PM CDT COVID-19 Rule Out 04/08/2023 04/08/2023 04/08/2023 10:09 AM CDT COVID-19 Rule Out 04/08/2023 04/08/2023 04/09/2023 8:41 PM CDT COVID-19 Rule Out 04/24/2024 04/24/2024 04/24/2024 4:27 PM CDT COVID-19 Confirmed 04/24/2024 04/24/2024 12:32 AM CDT COVID-19 Rule Out 12/07/2024 12/07/2024 12/07/2024 12:28 PM ROOM WORKER Influenza - Seasonal 12/07/2024 12/07/2024 025 12:32 AM ROOM WORKER Assessment Noted Time PHQ-9 Depression Total Score: 19 020 11:34 AM ROOM WORKER documented as of this encounter Care Teams Retail Loan Officer Relationship Specialty Start Date End Date Shanel Gudino NP [address] [place] [address] PCP - General NURSE PRACTITIONER 05/22/21 documented as of this encounter
--- OUTSIDE RECORDS SUMMARY | 2025-09-12 21:13 | XMS_ITS | Clinical Summary ---
Author Organization [facility] Address [facility] [place] [address] Phone Care Team Providers Care Casino Banker Name Role Phone Unavailable Primary Care Provider [...] on file Legal Sex Female 3:35 AM VAT CLEANER Gender Identity Not on file Sexual Orientation Not on file Last Filed Vital Signs Vital Sign Reading Time Taken Comments Blood Pressure 112/84 09/28/2022 10:28 AM VAT CLEANER Pulse 78 05/23/2022 7:52 AM CDT Temperature 36.8 C (98.2 F) 05/23/2022 7:52 AM CDT Respiratory Rate 18 05/23/2022 7:52 AM CDT Oxygen Saturation 98% 05/21/2022 7:36 AM CDT Inhaled Oxygen Concentration - - Weight 84.8 kg (187 lb) 09/28/2022 10:28 AM VAT CLEANER Height 158.8 cm (5' 2.5) 08/23/2022 10:41 [...] HPV (08/23/2022 10:56 AM CDT) CLINICAL INFORMATION [facility] DiagnosticsAnnabella Hicks Comment:None given LAST MENSTRUAL PERIOD [...] has been evaluated with computer assisted technology. TOP SCREW: Cristo Hicks Comment: JAF, CT(ASCP) CT Screening Location: [place] [address] Administration MIR[place] Chang [address] REVIEW TOP SCREW: Parrish Hicks Comment: GARZA, CT(ASCP) CT Screening location: [facility] Administration MIRNA Chang [facility] EXPLANATORY NOTE Que st Mechelle [...] and current clinical information. Test Performed at: [place] [address] Administration M[place] Chakraborty [address] RumaIsaias Peres Vo Genital SWAB OF ENDOCERVIX / Unknown 08/23/2022 10:56 AM CDT 08/23/2022 11:48 PM CDT Jan Nolan MD PATHOLOGY/CYTOLOGY ORD ERABLES Final Result [facility] [phone] [facility] [place] [address] Administration [place] Chakraborty [address] from Last 3 Months or Most Recently Relevant to Health Maintenance Insurance [employer]LE[employer]ANCE OPEN ACCESS RX [employer] [place] [employer] (INTERNAL) [facility] Internal Plans Advance Directives For more information, please contact: [phone] * Full Code (Latest Code Status on [...]
--- OUTSIDE RECORDS SUMMARY | 2025-09-12 21:13 | XMS_ITS | Encounter Summary ---
Author Organization [facility] Address [address] [place] [address] Care Team Providers Care Maintenance Porter Name Role Phone Shanel Gudino NP Primary Care Provider [phone] [phone] Encounter Details Date Type Department Care Team (Late Contact Info) Description 06/16/2021 Xelerated Message Enc [facility] Medical Group Family Medicine - [place] [address] [facility] [address] [place] [phone] Shanel Gudino, TOGGLER [address] [place] [address] [place] [address] RE: Test Results Social History Tobacco [...] on file Legal Sex Female 10:39 AM CAD DRAFTER Gender Identity Not on file Sexual Orientation [...] (Late Contact Info) Description 10/02/2025 2:40 PM CAD DRAFTER Office Visit [facility] Family Medicine - [place] [address] [facility] [address] [place] [address] Shanel Gudino NP [address] [place] [address] 01/28/2026 8:00 AM CDT Office Visit [facility] Multispecialty Care - [facility] [address] [place] [address] Reece Gamino DO [address] [facility] [address] [place] [address] documented as of this encounter Visit Diagnoses Not on filedocumented in this encounter Additional Health Concerns Infection Onset Date Last Indicated Resolved Time COVID-19 Rule Out 11/09/2021 11/09/2021 11/09/2021 9:30 AM CAD DRAFTER COVID-19 Rule Out 11/09/2021 11/09/2021 11/10/2021 2:34 PM CAD DRAFTER COVID-19 Rule Out 01/04/2023 01/04/2023 01/04/2023 2:06 PM CAD DRAFTER COVID-19 Rule Out 01/04/2023 01/04/2023 01/06/2023 3:33 PM CAD DRAFTER COVID-19 Rule Out 02/07/2023 02/07/2023 02/07/2023 1:48 PM CDT COVID-19 Rule Out 02/07/2023 02/07/2023 02/08/2023 3:51 PM CDT COVID-19 Rule Out 04/08/2023 04/08/2023 04/08/2023 10:09 AM CDT COVID-19 Rule Out 04/08/2023 04/08/2023 04/09/2023 8:41 PM CDT COVID-19 Rule Out 04/24/2024 04/24/2024 04/24/2024 4:27 PM CDT COVID-19 Confirmed 04/24/2024 04/24/2024 12:32 AM CDT COVID-19 Rule Out 12/07/2024 12/07/2024 12/07/2024 12:28 PM CAD DRAFTER Influenza - Seasonal 12/07/2024 12/07/2024 025 12:32 AM CAD DRAFTER Assessment Noted Time PHQ-9 Depression Total Score: 19 020 11:34 AM CAD DRAFTER documented as of this encounter Care Teams Maintenance Porter Relationship Specialty Start Date End Date Shanel Gudino NP [address] [place] [address] PCP - General NURSE PRACTITIONER 05/22/21 documented as of this encounter
--- OUTSIDE RECORDS SUMMARY | 2025-09-12 21:13 | XMS_ITS | Encounter Summary ---
Author Organization [facility] Address [address] [place] [address] Care Team Providers Care Manager Hospice Name Role Phone Shanel Gudino NP Primary Care Provider [phone] [phone] Encounter Details Date Type Department Care Team (Late st Contact Info) Description 01/25/2023 [employer] Message Enc [facility] Medical Group Family Medicine - [place] [address] [facility] [address] [place] [phone] Shanel Gudino, PRESLEY [address] [address] [place] [address] Blood in stool Social History Tobacco [...] on file Legal Sex Female 10:39 AM CLINICAL ABSTRACTOR Gender Identity Not on file Sexual Orientation [...] st Contact Info) Description 10/02/2025 2:40 PM CLINICAL ABSTRACTOR Office Visit [facility] Medical [facility] Family Medicine - [place] [address] [facility] [address] [place] [address] Shanel Gudino NP [address] [place] [address] 01/28/2026 8:00 AM CDT Office Visit [facility] Multispecialty Care - [facility] [address] [facility] [address] [place] [address] Reece Gamino DO [address] [facility] [address] [place] [address] documented as of this encounter Visit Diagnoses [...] Rule Out 12/07/2024 12/07/2024 12/07/2024 12:28 PM CLINICAL ABSTRACTOR Influenza - Seasonal 12/07/2024 12/07/2024 025 12:32 AM CLINICAL ABSTRACTOR Assessment Noted Time PHQ-9 Depression Total Score: 19 020 11:34 AM CLINICAL ABSTRACTOR documented as of this encounter Care Teams Manager Hospice Relationship Specialty Start Date End Date Shanel Gudino NP [address] [place] [address] PCP - General NURSE PRACTITIONER 05/22/21 documented as of this encounter
--- OUTSIDE RECORDS SUMMARY | 2025-09-12 21:13 | XMS_ITS | Encounter Summary ---
Author Organization [facility] Address [address] [place] [address] Care Team Providers Care Inverter And Clipper Name Role Phone Shanel Gudino NP Primary Care Provider [phone] [phone] Encounter Details Date Type Department Care Team (Late Contact Info) Description 10/04/2022 MyChart Message Enc [facility] Family Medicine [facility] [address] [facility] [address] [place] [address] Shanel Gudino NP [address] [place] [address] [place] [address] Update from OB last office [...] on file Legal Sex Female 10:39 AM SUPERVISOR ENGINE ASSEMBLY Gender Identity Not on file Sexual Orientation Not on file documented as of this encounter Plan of Treatment Upcoming Encounters Date Type Department Care Team (Late st Contact Info) Description 10/02/2025 2:40 PM SUPERVISOR ENGINE ASSEMBLY Office Visit [facility] [address] [facility] [address] [place], [place] [phone] Shanel Gudino, PRESLEY [address] [place] [address] 01/28/2026 8:00 AM CDT Office Visit [facility] Medical Group Multispecialty Care - [facility] [address] [place] [address] Reece Gamino DO [address] [facility] [address] [place] [address] documented as of this encounter Visit Diagnoses Not on filedocumented in this encounter Additional Health Concerns Infection Onset Date Last Indicated Resolved Time COVID-19 Rule Out 01/04/2023 01/04/2023 01/04/2023 2:06 PM SUPERVISOR ENGINE ASSEMBLY COVID-19 Rule Out 01/04/2023 01/04/2023 01/06/2023 3:33 PM SUPERVISOR ENGINE ASSEMBLY COVID-19 Rule Out 02/07/2023 02/07/2023 02/07/2023 1:48 PM CDT COVID-19 Rule Out 02/07/2023 02/07/2023 02/08/2023 3:51 PM CDT COVID-19 Rule Out 04/08/2023 04/08/2023 04/08/2023 10:09 AM CDT COVID-19 Rule Out 04/08/2023 04/08/2023 04/09/2023 8:41 PM CDT COVID-19 Rule Out 04/24/2024 04/24/2024 04/24/2024 4:27 PM CDT COVID-19 Confirmed 04/24/2024 04/24/2024 12:32 AM CDT COVID-19 Rule Out 12/07/2024 12/07/2024 12/07/2024 12:28 PM SUPERVISOR ENGINE ASSEMBLY Influenza - Seasonal 12/07/2024 12/07/2024 025 12:32 AM SUPERVISOR ENGINE ASSEMBLY Assessment Noted Time PHQ-9 Depression Total Score: 19 020 11:34 AM SUPERVISOR ENGINE ASSEMBLY documented as of this encounter Care Teams Inverter And Clipper Relationship Specialty Start Date End Date Shanel Gudino NP [address] [place] [address] PCP - General NURSE PRACTITIONER 05/22/21 documented as of this encounter
--- OUTSIDE RECORDS SUMMARY | 2025-09-12 21:13 | XMS_ITS | Encounter Summary ---
Author Organization [facility] Address [address] [place] [address] Care Team Providers Care Trap Operator Name Role Phone Lauryn Ryan MD Primary Care Provid er Encounter Details Date Type Department Care Team (Late st Contact Info) Description 12/20/1998 Outpatient Historical HIS [facility] [place] [address] [place] [address] Social History Tobacco Use Types Packs/Day Years Used Date Smoking Tobacco: Never Assessed Comments Unknown Sex and Gender Information Value Date Recorded Sex Assigned at Not on file Legal Sex Female 3:35 AM TARGET PROTECTION SPECIALIST Gender Identity Not on file Sexual Orientation Not on file documented as of this encounter Plan of Treatment Not on file documented as of this encounter Visit Diagnoses Not on filedocumented in this encounter Care Teams Trap Operator Relationship Specialty Start Date End Date Lauryn Ryan MD [address] [place] [phone] PCP - General 01/04/13 08/06/19 documented as of this encounter
--- OUTSIDE RECORDS SUMMARY | 2025-09-12 21:13 | XMS_ITS | Encounter Summary ---
Author Organization [facility] Address [address] [place] [address] Care Team Providers Care Mechanical Integrity Specialist Name Role Phone Shanel Gudino NP Primary Care Provider [phone] [phone] Encounter Details Date Type Department Care Team (Late Contact Info) Description 06/14/2023 Pixplitt Message Enc [facility] Family [address] [place] [phone] Shanel Gudino NP [address] [place] [address] Holter monitor Social History Tobacco Use [...] on file Legal Sex Female 10:39 AM HOUSEPERSON Gender Identity Not on file Sexual Orientation Not on file documented as of this encounter Plan of Treatment Upcoming Encounters Date Type Department Care Team (Late Contact Info) Description 10/02/2025 2:40 PM HOUSEPERSON Office Visit [facility] [address] [facility] [address] [place], [place] [address] Shanel Gudino NP [address] [place] [address] 01/28/2026 8:00 AM CDT Office Visit [facility] Medical Group Multispecialty Care - [facility] [address] [place] [address] Reece Gamino DO [address] [facility] [address] [place] [address] documented as of this encounter Visit Diagnoses Not on filedocumented in this encounter Additional Health Concerns Infection Onset Date Last Indicated Resolved Time COVID-19 Rule Out 04/24/2024 04/24/2024 04/24/2024 4:27 PM CDT COVID-19 Confirmed 04/24/2024 04/24/2024 12:32 AM CDT COVID-19 Rule Out 12/07/2024 12/07/2024 12/07/2024 12:28 PM HOUSEPERSON Influenza - Seasonal 12/07/2024 12/07/2024 025 12:32 AM HOUSEPERSON Assessment Noted Time PHQ-9 Depression Total Score: 19 020 11:34 AM HOUSEPERSON documented as of this encounter Care Teams Mechanical Integrity Specialist Relationship Specialty Start Date End Date Shanel Gudino NP [address] [place] [address] PCP - General NURSE PRACTITIONER 05/22/21 documented as of this encounter
--- OUTSIDE RECORDS SUMMARY | 2025-09-12 21:13 | XMS_ITS | Encounter Summary ---
Author Organization [facility] Address [address] [place] [address] Care Team Providers Care Traveling Electrician Name Role Phone Shanel Gudino NP Primary Care Provider [phone] [phone] Encounter Details Date Type Department Care Team (Late st Contact Info) Description 07/27/2022 [employer] Message Enc [facility] Medical Group Family Medicine - [place] [address] [facility] [address] [place] [address] Shanel Gudino, PRESLEY [address] [place] [address] [place] [address] Forgot to mention in previous message [...] on file Legal Sex Female 10:39 AM FREIGHT MANAGER Gender Identity Not on file Sexual [...] st Contact Info) Description 10/02/2025 2:40 PM FREIGHT MANAGER Office Visit [facility] Medical [facility] Family Medicine - [place] [address] [facility] [address] [place] [address] Shanel Gudino NP [address] [place] [address] 01/28/2026 8:00 AM CDT Office Visit [facility] Multispecialty Care - [facility] [address] [facility] [address] [place] [address] Reece Gamino DO [address] [facility] [address] [place] [address] documented as of this encounter Visit Diagnoses Not on filedocumented in this encounter Additional Health Concerns Infection Onset Date Last Indicated Resolved Time COVID-19 Rule Out 01/04/2023 01/04/2023 01/04/2023 2:06 PM FREIGHT MANAGER COVID-19 Rule Out 01/04/2023 01/04/2023 01/06/2023 3:33 PM FREIGHT MANAGER COVID-19 Rule Out 02/07/2023 02/07/2023 02/07/2023 1:48 PM CDT COVID-19 Rule Out 02/07/2023 02/07/2023 02/08/2023 3:51 PM CDT COVID-19 Rule Out 04/08/2023 04/08/2023 04/08/2023 10:09 AM CDT COVID-19 Rule Out 04/08/2023 04/08/2023 04/09/2023 8:41 PM CDT COVID-19 Rule Out 04/24/2024 04/24/2024 04/24/2024 4:27 PM CDT COVID-19 Confirmed 04/24/2024 04/24/2024 12:32 AM CDT COVID-19 Rule Out 12/07/2024 12/07/2024 12/07/2024 12:28 PM FREIGHT MANAGER Influenza - Seasonal 12/07/2024 12/07/2024 025 12:32 AM FREIGHT MANAGER Assessment Noted Time PHQ-9 Depression Total Score: 19 020 11:34 AM FREIGHT MANAGER documented as of this encounter Care Teams Traveling Electrician Relationship Specialty Start Date End Date Shanel Gudino NP [address] [place] [address] PCP - General NURSE PRACTITIONER 05/22/21 documented as of this encounter
--- OUTSIDE RECORDS SUMMARY | 2025-09-12 21:13 | XMS_ITS | Encounter Summary ---
Author Organization [facility] Address [address] [place] [address] Care Team Providers Care Reference Investigator Name Role Phone Lauryn Ryan MD Primary [...] on file Legal Sex Female 3:35 AM CRITICAL CARE NURSE Gender Identity Not on file Sexual Orientation Not on file documented as of this encounter Plan of Treatment Not on file documented as of this encounter Visit Diagnoses Diagnosis Sprain of ankle, unspecified site- Primary documented in this encounter Care Teams Reference Investigator Relationship Specialty Start Date End Date Lauryn Ryan MD [address] [place] [address] PCP - General 01/04/13 08/06/19 documented as of this encounter
--- OUTSIDE RECORDS SUMMARY | 2025-09-12 21:13 | XMS_ITS | Encounter Summary ---
Author Organization [facility] Address [address] [place] [address] Care Team Providers Care Html Developer Name Role Phone Lauryn Ryan MD Primary Care Provid er Encounter Details Date Type Department Care Team (Late st Contact Info) Description 11/20/1998 Emergency [facility] Ariana San MD [address] [place] [address] Er, Authorized P NO ADDRESS ON FILE Open wound of jaw, without mention of complication (Primary Dx) Social History Tobacco Use Types Packs/Day Years Used Date Smoking Tobacco: Never Assessed Comments Unknown Sex and Gender Information Value Date Recorded Sex Assigned at Not on file Legal Sex Female 3:35 AM SUPERVISOR SEWING DEPARTMENT Gender Identity Not on file Sexual Orientation Not on file documented as of this encounter Plan of Treatment Not on file documented as of this encounter Visit Diagnoses Diagnosis Open wound of jaw, without mention of complication- Primary documented in this encounter Care Teams Html Developer Relationship Specialty Start Date End Date Lauryn Ryan MD [address] [place] [address] PCP - General 01/04/13 08/06/19 documented as of this encounter
--- OUTSIDE RECORDS SUMMARY | 2025-09-12 21:13 | XMS_ITS | Encounter Summary ---
Author Organization [facility] Address [address] [place] [address] Care Team Providers Care Meat Boner And Slicer Name Role Phone Shanel Gudino NP Primary Care Provider +1 [phone] Encounter Details Date Type Department Care Team (Late st Contact Info) Description 08/01/2022 [employer] Message Enc [facility] Medical Group Family Medicine - [place] [address] [facility] [address] [place] [address] Shanel Gudino, PRESLEY [address] [place] [address] regarding URINALYSIS [place] REFLEX TO CULTURE [...] on file Legal Sex Female 10:39 AM CHICKEN AND FISH BUTCHER Gender Identity Not on file Sexual Orientation [...] st Contact Info) Description 10/02/2025 2:40 PM CHICKEN AND FISH BUTCHER Office Visit [facility] Family Medicine - [place] [address] [facility] [address] [place] [address] Shanel Gudino NP [address] [place] [address] 01/28/2026 8:00 AM CDT Office Visit [facility] Multispecialty Care - [facility] [address] [place] [address] Reece Gamino DO [address] [place] [address] documented as of this encounter Visit Diagnoses Not on filedocumented in this encounter Additional Health Concerns Infection Onset Date Last Indicated Resolved Time COVID-19 Rule Out 01/04/2023 01/04/2023 01/04/2023 2:06 PM CHICKEN AND FISH BUTCHER COVID-19 Rule Out 01/04/2023 01/04/2023 01/06/2023 3:33 PM CHICKEN AND FISH BUTCHER COVID-19 Rule Out 02/07/2023 02/07/2023 02/07/2023 1:48 PM CDT COVID-19 Rule Out 02/07/2023 02/07/2023 02/08/2023 3:51 PM CDT COVID-19 Rule Out 04/08/2023 04/08/2023 04/08/2023 10:09 AM CDT COVID-19 Rule Out 04/08/2023 04/08/2023 04/09/2023 8:41 PM CDT COVID-19 Rule Out 04/24/2024 04/24/2024 04/24/2024 4:27 PM CDT COVID-19 Confirmed 04/24/2024 04/24/2024 12:32 AM CDT COVID-19 Rule Out 12/07/2024 12/07/202412/07/2024 12:28 PM CHICKEN AND FISH BUTCHER Influenza - Seasonal 12/07/2024 12/07/2024 025 12:32 AM CHICKEN AND FISH BUTCHER Assessment Noted Time PHQ-9 Depression Total Score: 19 020 11:34 AM CHICKEN AND FISH BUTCHER documented as of this encounter Care Teams Meat Boner And Slicer Relationship Specialty Start Date End Date Shanel Gudino NP [address] [place] [address] PCP - General NURSE PRACTITIONER 05/22/21 documented as of this encounter
--- OUTSIDE RECORDS SUMMARY | 2025-09-12 21:13 | XMS_ITS | Encounter Summary ---
Author Organization [facility] Address [address] [place] [address] Care Team Providers Care Directional Bore Operator Name Role Phone Shanel Gudino NP Primary Care Provider +1 [phone] Encounter Details Date Type Department Care Team (Late Contact Info) Description 11/04/2023 Vocation [facility] Patient Accounts [address] [place] [address] [facility] Provider Action Required Social History Tobacco [...] on file Legal Sex Female 10:39 AM BURIAL VAULT DELIVERER AND INSTALLER Gender Identity Not on file Sexual Orientation Not on file documented as of this encounter Plan of Treatment Upcoming Encounters Date Type Department Care Team (Late st Contact Info) Description 10/02/2025 2:40 PM BURIAL VAULT DELIVERER AND INSTALLER Office Visit [facility] Medical Group Family Medicine - [place] [address] [facility] [address] [place] [phone] Shanel Gudino NP [address] [place] [address] [place], [place] [phone] 01/28/2026 8:00 AM CDT Office Visit [facility] Medical Group Multispecialty Care - [facility] [address] [place] [address] Klaus GaminovalerieDO [address] [place] [address] documented as of this encounter Visit Diagnoses Not on filedocumented in this encounter Additional Health Concerns Infection Onset Date Last Indicated Resolved Time COVID-19 Rule Out 04/24/2024 04/24/2024 04/24/2024 4:27 PM CDT COVID-19 Confirmed 04/24/2024 04/24/2024 12:32 AM CDT COVID-19 Rule Out 12/07/2024 12/07/2024 12/07/2024 12:28 PM BURIAL VAULT DELIVERER AND INSTALLER Influenza - Seasonal 12/07/2024 12/07/2024 025 12:32 AM BURIAL VAULT DELIVERER AND INSTALLER Assessment Noted Time PHQ-9 Depression Total Score: 19 020 11:34 AM BURIAL VAULT DELIVERER AND INSTALLER documented as of this encounter Care Teams Directional Bore Operator Relationship Specialty Start Date End Date Shanel Gudino NP [address] [place] [address] PCP - General NURSE PRACTITIONER 05/22/21 documented as of this encounter
--- OUTSIDE RECORDS SUMMARY | 2025-09-12 21:13 | XMS_ITS | Encounter Summary ---
Author Organization [facility] Address [address] [place] [address] Care Team Providers Care Pictures Editor Name Role Phone Shanel Gudino NP Primary Care Provider +1 [phone] Encounter Details Date Type Department Care Team (Latest Contact Info) Description 05/12/2023 MyChart Message Enc [facility] Multispecialty Care - [address], [address] [place] [address] Aurea Schneider NP [address] [facility] [place], [place] [phone] Need a new script for suprep sent [...] on file Legal Sex Female 10:39 AM LEADERSHIP RECRUITER Gender Identity Not on file Sexual Orientation Not on file documented as of this encounter Plan of Treatment Upcoming Encounters Date Type Department Care Team (Late st Contact Info) Description 10/02/2025 2:40 PM LEADERSHIP RECRUITER Office Visit [facility] Family Medicine - [place] [address] [facility] [address] [place] [address] Shanel Gudino NP [address] [place] [address] 01/28/2026 8:00 AM CDT Office Visit [facility] Multispecialty Care - [facility] [address] [place] [address] Reece Gamino DO [address] [place] [address] documented as of this encounter Visit Diagnoses Not on filedocumented in this encounter Additional Health Concerns Infection Onset Date Last Indicated Resolved Time COVID-19 Rule Out 04/24/2024 04/24/2024 04/24/2024 4:27 PM CDT COVID-19 Confirmed 04/24/2024 04/24/2024 12:32 AM CDT COVID-19 Rule Out 12/07/2024 12/07/2024 12/07/2024 12:28 PM LEADERSHIP RECRUITER Influenza - Seasonal 12/07/2024 12/07/2024 025 12:32 AM LEADERSHIP RECRUITER Assessment Noted Time PHQ-9 Depression Total Score: 19 020 11:34 AM LEADERSHIP RECRUITER documented as of this encounter Care Teams Pictures Editor Relationship Specialty Start Date End Date Shanel Gudino NP [address] [place] [address] PCP - General NURSE PRACTITIONER 05/22/21 documented as of this encounter
--- OUTSIDE RECORDS SUMMARY | 2025-09-12 21:13 | XMS_ITS | Encounter Summary ---
Author Organization [facility] Address [address] [place] [address] Care Team Providers Care Auger Press Operator Name Role Phone Shanel Gudino NP Primary Care Provider +1 [phone] Encounter Details Date Type Department Care Team (Late Contact Info) Description 09/24/2022 MyChart Message Enc [facility] Family [facility] [address] [place] [address] [place] [address] Shanel Gudino NP [address] [place] [address] [place] [address] Sutures coming out of rectum [...] on file Legal Sex Female 10:39 AM PERFORMANCE MANAGEMENT CONSULTANT Gender Identity Not on file Sexual Orientation Not on file documented as of this encounter Plan of Treatment Upcoming Encounters Date Type Department Care Team (Late st Contact Info) Description 10/02/2025 2:40 PM PERFORMANCE MANAGEMENT CONSULTANT Office Visit [address] [place] [address] Shanel Gudino, PRESLEY [address] [place] [address] 01/28/2026 8:00 AM CDT Office Visit [facility] Medical Group Multispecialty Care - [facility] [address] [place] [address] Reece Gamino DO [address] [facility] [address] [place] [address] documented as of this encounter Visit Diagnoses Not on filedocumented in this encounter Additional Health Concerns Infection Onset Date Last Indicated Resolved Time COVID-19 Rule Out 01/04/2023 01/04/2023 01/04/2023 2:06 PM PERFORMANCE MANAGEMENT CONSULTANT COVID-19 Rule Out 01/04/2023 01/04/2023 01/06/2023 3:33 PM PERFORMANCE MANAGEMENT CONSULTANT COVID-19 Rule Out 02/07/2023 02/07/2023 02/07/2023 1:48 PM CDT COVID-19 Rule Out 02/07/2023 02/07/2023 02/08/2023 3:51 PM CDT COVID-19 Rule Out 04/08/2023 04/08/2023 04/08/2023 10:09 AM CDT COVID-19 Rule Out 04/08/2023 04/08/2023 04/09/2023 8:41 PM CDT COVID-19 Rule Out 04/24/2024 04/24/2024 04/24/2024 4:27 PM CDT COVID-19 Confirmed 04/24/2024 04/24/2024 12:32 AM CDT COVID-19 Rule Out 12/07/2024 12/07/2024 12/07/2024 12:28 PM PERFORMANCE MANAGEMENT CONSULTANT Influenza - Seasonal 12/07/2024 12/07/2024 025 12:32 AM PERFORMANCE MANAGEMENT CONSULTANT Assessment Noted Time PHQ-9 Depression Total Score: 19 020 11:34 AM PERFORMANCE MANAGEMENT CONSULTANT documented as of this encounter Care Teams Auger Press Operator Relationship Specialty Start Date End Date Shanel Gudino NP [address] [place] [address] PCP - General NURSE PRACTITIONER 05/22/21 documented as of this encounter
--- OUTSIDE RECORDS SUMMARY | 2025-09-12 21:13 | XMS_ITS | Encounter Summary ---
Author Organization [facility] Address [address] [place] [address] Care Team Providers Care Mill Feeder Name Role Phone Shanel Gudino NP Primary Care Provider +1 [phone] Encounter Details Date Type Department Care Team (Late st Contact Info) Description 12/28/2024 Billetto Message Enc [facility] Medical Group Family Medicine - [place] [address] [facility] [address] [place] [address] [phone] Shanel Gudino, PRESLEY [address] [place] [address] [place] [address] Beginning vitamins Social History Tobacco Use [...] on file Legal Sex Female 10:39 AM ACID PURIFICATION EQUIPMENT OPERATOR Gender Identity Not on file Sexual Orientation Not on file documented as of this encounter Progress Notes * Lorelei Arceo MA - 12/28/2024 2:15 PM CST Please advise PURIFICATION EQUIPMENT OPERATOR documented in this encounter Plan of Treatment Upcoming Encounters Date Type Department Care Team (Late st Contact Info) Description 10/02/2025 2:40 PM ACID PURIFICATION EQUIPMENT OPERATOR Office Visit [facility] Family Medicine - [place] [address] [facility] [address] [place] [address] Shanel Gudino NP [address] [place] [address] [place] [address] 01/28/2026 8:00 AM CDT Office Visit [facility] Multispecialty Care - [facility] [address] [place] [address] Reece Gamino DO [address] [facility] [address] [place] [address] documented as of this encounter Visit Diagnoses Not on filedocumented in this encounter Additional Health Concerns Assessment Noted Time PHQ-9 Depression Total Score: 19 020 11:34 AM ACID PURIFICATION EQUIPMENT OPERATOR documented as of this encounter Care Teams Mill Feeder Relationship Specialty Start Date End Date Shanel Gudino NP [address] [place] [address] PCP - General NURSE PRACTITIONER 05/22/21 documented as of this encounter
--- OUTSIDE RECORDS SUMMARY | 2025-09-12 21:13 | XMS_ITS | Encounter Summary ---
Author Organization [facility] Address [address] [place] [address] Care Team Providers Care Vp Product Marketing Name Role Phone Shanel Gudino NP Primary Care Provider [phone] [phone] Encounter Details Date Type Department Care Team (Latest Contact Info) Description 11/06/2021 Immunome Message Enc [facility] Medical Group Family Medicine - [place] [address] [facility] [address] [place] [address] Shanel Gudino, PRESLEY [address] [place] [address] [place] [address] Available appointments today 11/06 Social [...] on file Legal Sex Female 10:39 AM WOODEN SHADE HARDWARE INSTALLER Gender Identity Not on file Sexual Orientation Not on file COVID-19 Exposure Response Date Recorded In the last month, have you been in contact with someone who was confirmed or suspected to have Coronavirus / COVID-19? No / Unsure 11/07/2021 5:05 PM WOODEN SHADE HARDWARE INSTALLER documented as of this encounter Plan of Treatment Upcoming Encounters Date Type Department Care Team (Late st Contact Info) Description 10/02/2025 2:40 PM WOODEN SHADE HARDWARE INSTALLER Office Visit [facility] Family Medicine - [place] [address] [facility] [address] [place] [address] Shanel Gudino NP [address] [place] [address] 01/28/2026 8:00 AM CDT Office Visit [facility] Multispecialty Care - [facility] [address] [place] [address] Reece Gamino DO [address] [facility] [address] [facility] [address] [place] [address] documented as of this encounter Visit Diagnoses Not on filedocumented in this encounter Additional Health Concerns Infection Onset Date Last Indicated Resolved Time COVID-19 Rule Out 11/09/2021 11/09/2021 11/09/2021 9:30 AM WOODEN SHADE HARDWARE INSTALLER COVID-19 Rule Out 11/09/2021 11/09/2021 11/10/2021 2:34 PM WOODEN SHADE HARDWARE INSTALLER COVID-19 Rule Out 01/04/2023 01/04/2023 01/04/2023 2:06 PM WOODEN SHADE HARDWARE INSTALLER COVID-19 Rule Out 01/04/2023 01/04/2023 01/06/2023 3:33 PM WOODEN SHADE HARDWARE INSTALLER COVID-19 Rule Out 02/07/2023 02/07/2023 02/07/2023 1:48 PM CDT COVID-19 Rule Out 02/07/2023 02/07/2023 02/08/2023 3:51 PM CDT COVID-19 Rule Out 04/08/2023 04/08/2023 04/08/2023 10:09 AM CDT COVID-19 Rule Out 04/08/2023 04/08/2023 04/09/2023 8:41 PM CDT COVID-19 Rule Out 04/24/2024 04/24/2024 04/24/2024 4:27 PM CDT COVID-19 Confirmed 04/24/2024 04/24/2024 12:32 AM CDT COVID-19 Rule Out 12/07/2024 12/07/2024 12/07/2024 12:28 PM WOODEN SHADE HARDWARE INSTALLER Influenza - Seasonal 12/07/2024 12/07/2024 025 12:32 AM WOODEN SHADE HARDWARE INSTALLER Assessment Noted Time PHQ-9 Depression Total Score: 19 020 11:34 AM WOODEN SHADE HARDWARE INSTALLER documented as of this encounter Care Teams Vp Product Marketing Relationship Specialty Start Date End Date Shanel Gudino NP [address] [place] [address] PCP - General NURSE PRACTITIONER 05/22/21 documented as of this encounter
--- OUTSIDE RECORDS SUMMARY | 2025-09-12 21:13 | XMS_ITS | Encounter Summary ---
Author Organization [facility] Address [address] [place] [address] Care Team Providers Care Panel Fitter Name Role Phone Shanel Gudino NP Primary Care Provider +1 -[phone] Encounter Details Date Type Department Care Team (Late Contact Info) Description 10/18/2024 [employer] Message Enc [facility] Family [address] [place] [phone] Shanel Gudino NP [address] [place] [address] [place] [address] ENT visit summary Social History Tobacco [...] on file Legal Sex Female 10:39 AM GUEST EXPERIENCE CAPTAIN Gender Identity Not on file Sexual Orientation Not on file documented as of this encounter Plan of Treatment Upcoming Encounters Date Type Department Care Team (Late Contact Info) Description 10/02/2025 2:40 PM GUEST EXPERIENCE CAPTAIN Office Visit [facility] [address] [facility] [address] [place], [place] [address] Shanel Gudino NP [address] [place] [address] 01/28/2026 8:00 AM CDT Office Visit [facility] Medical Group Multispecialty Care - [facility] [address] [facility] [facility] [place] [address] Reece Gamino DO [address] [facility] [facility] [address] [place] [address] documented as of this encounter Visit Diagnoses Not on filedocumented in this encounter Additional Health Concerns Infection Onset Date Last Indicated Resolved Time COVID-19 Rule Out 12/07/2024 12/07/2024 12/07/2024 12:28 PM GUEST EXPERIENCE CAPTAIN Influenza - Seasonal 12/07/2024 12/07/2024 025 12:32 AM GUEST EXPERIENCE CAPTAIN Assessment Noted Time PHQ-9 Depression Total Score: 19 020 11:34 AM GUEST EXPERIENCE CAPTAIN documented as of this encounter Care Teams Panel Fitter Relationship Specialty Start Date End Date Shanel Gudino NP [address] [place] [address] PCP - General NURSE PRACTITIONER 05/22/21 documented as of this encounter
--- OUTSIDE RECORDS SUMMARY | 2025-09-12 21:13 | XMS_ITS | Encounter Summary ---
Author Organization [facility] Address [address] [place] [address] Care Team Providers Care Remarketing Rep Name Role Phone Shanel Gudino NP Primary Care Provider +1 [phone] Encounter Details Date Type Department Care Team (Late Contact Info) Description 04/02/2022 Last [employer]hart Message Enc [facility] [address] [place] [address] [place] [address] Shanel Gudino NP [address] [place] [address] [place] [address] Increase in Prozac request Social History [...] on file Legal Sex Female 10:39 AM SONOGRAPHY TECHNICIAN Gender Identity Not on file Sexual Orientation Not on file documented as of this encounter Plan of Treatment Upcoming Encounters Date Type Department Care Team (Late Contact Info) Description 10/02/2025 2:40 PM SONOGRAPHY TECHNICIAN Office Visit [facility] [address] [facility] [address] [place] [address] Shanel Gudino NP [address] [place] [address] 01/28/2026 8:00 AM CDT Office Visit [facility] Multispecialty Care - [facility] [address] [place] [address] Reece Gamino DO [address] [facility] [address] [place] [address] documented as of this encounter Visit Diagnoses Not on filedocumented in this encounter Additional Health Concerns Infection Onset Date Last Indicated Resolved Time COVID-19 Rule Out 01/04/2023 01/04/2023 01/04/2023 2:06 PM SONOGRAPHY TECHNICIAN COVID-19 Rule Out 01/04/2023 01/04/2023 01/06/2023 3:33 PM SONOGRAPHY TECHNICIAN COVID-19 Rule Out 02/07/2023 02/07/2023 02/07/2023 1:48 PM CDT COVID-19 Rule Out 02/07/2023 02/07/2023 02/08/2023 3:51 PM CDT COVID-19 Rule Out 04/08/2023 04/08/2023 04/08/2023 10:09 AM CDT COVID-19 Rule Out 04/08/2023 04/08/2023 04/09/2023 8:41 PM CDT COVID-19 Rule Out 04/24/2024 04/24/2024 04/24/2024 4:27 PM CDT COVID-19 Confirmed 04/24/2024 04/24/2024 12:32 AM CDT COVID-19 Rule Out 12/07/2024 12/07/2024 12/07/2024 12:28 PM SONOGRAPHY TECHNICIAN Influenza - Seasonal 12/07/2024 12/07/2024 025 12:32 AM SONOGRAPHY TECHNICIAN Assessment Noted Time PHQ-9 Depression Total Score: 19 020 11:34 AM SONOGRAPHY TECHNICIAN documented as of this encounter Care Teams Remarketing Rep Relationship Specialty Start Date End Date Shanel Gudino NP [address] [place] [address] PCP - General NURSE PRACTITIONER 05/22/21 documented as of this encounter
--- OUTSIDE RECORDS SUMMARY | 2025-09-12 21:13 | XMS_ITS | Encounter Summary ---
Author Organization [facility] Address [address] [place] [address] Care Team Providers Care Restorer Lace And Textiles Name Role Phone Shanel Gudino NP Primary Care Provider [phone] [phone] Encounter Details Date Type Department Care Team (Late Contact Info) Description 06/21/2022 [employer] Message Enc [facility] Medical Group Family Medicine - [place] [address] [facility] [address] [place] [phone] Shanel Gudino, MARINE DIESEL TECHNICIAN [address] [place] [address] [place] [address] Hospital lab results Social History Tobacco [...] on file Legal Sex Female 10:39 AM HEALTH SERVICES RN Gender Identity Not on file Sexual Orientation [...] (Late Contact Info) Description 10/02/2025 2:40 PM HEALTH SERVICES RN Office Visit [facility] Family Medicine - [place] [address] [place] [address] Shanel Gudino NP [address] [place] [address] 01/28/2026 8:00 AM CDT Office Visit [facility] Multispecialty Care - [facility] [address] [facility] [address] [place] [address] Reece Gamino DO [address] [facility] [address] [place] [address] documented as of this encounter Visit Diagnoses Not on filedocumented in this encounter Additional Health Concerns Infection Onset Date Last Indicated Resolved Time COVID-19 Rule Out 01/04/2023 01/04/2023 01/04/2023 2:06 PM HEALTH SERVICES RN COVID-19 Rule Out 01/04/2023 01/04/2023 01/06/2023 3:33 PM HEALTH SERVICES RN COVID-19 Rule Out 02/07/2023 02/07/2023 02/07/2023 1:48 PM CDT COVID-19 Rule Out 02/07/2023 02/07/2023 02/08/2023 3:51 PM CDT COVID-19 Rule Out 04/08/2023 04/08/2023 04/08/2023 10:09 AM CDT COVID-19 Rule Out 04/08/2023 04/08/2023 04/09/2023 8:41 PM CDT COVID-19 Rule Out 04/24/2024 04/24/2024 04/24/2024 4:27 PM CDT COVID-19 Confirmed 04/24/2024 04/24/2024 12:32 AM CDT COVID-19 Rule Out 12/07/2024 12/07/2024 12/07/2024 12:28 PM HEALTH SERVICES RN Influenza - Seasonal 12/07/2024 12/07/2024 025 12:32 AM HEALTH SERVICES RN Assessment Noted Time PHQ-9 Depression Total Score: 19 020 11:34 AM HEALTH SERVICES RN documented as of this encounter Care Teams Restorer Lace And Textiles Relationship Specialty Start Date End Date Shanel Gudino NP [address] [place] [address] PCP - General NURSE PRACTITIONER 05/22/21 documented as of this encounter
--- OUTSIDE RECORDS SUMMARY | 2025-09-12 21:13 | XMS_ITS | Encounter Summary ---
Author Organization [facility] Address [address] [place] [address] Care Team Providers Care Short Goods Drier Name Role Phone Shanel Gudino NP Primary Care Provider +1 [phone] Encounter Details Date Type Department Care Team (Latest Contact Info) Description 09/12/2025 [employer] Message Enc [facility] Medical [facility] Multispecialty Care - [facility] [address] [place] [address] Reece Gamino DO [address] [place], [place] [phone] CPAP use with nighttime heartburn and abdominal [...] on file Legal Sex Female 10:39 AM KNIFEMAN Gender Identity Not on file Sexual Orientation Not on file documented as of this encounter Progress Notes * Greer Britt CRT - 09/12/2025 7:29 AM CST Images from the original note were not included. Settings changed via [employer] EMAN documented in this encounter Plan of Treatment Upcoming Encounters Date Type Department Care Team (Late st Contact Info) Description 10/02/2025 2:40 PM KNIFEMAN Office Visit [facility] Family Medicine - [place] [address] [place] [address] Shanel Gudino NP [address] [place] [address] 01/28/2026 8:00 AM CDT Office Visit [facility] Multispecialty Care - [facility] [address] [place] [address] Reece Gamino DO [address] [place] [address] documented as of this encounter Visit Diagnoses Not on filedocumented in this encounter Additional Health Concerns Assessment Noted Time PHQ-9 Depression Total Score: 19 020 11:34 AM KNIFEMAN documented as of this encounter Care Teams Short Goods Drier Relationship Specialty Start Date End Date Shanel Gudino NP [address] [place] [address] PCP - General NURSE PRACTITIONER 05/22/21 documented as of this encounter
--- OUTSIDE RECORDS SUMMARY | 2025-09-12 21:13 | XMS_ITS | Encounter Summary ---
Author Organization [facility] Address [address] [place] [address] Care Team Providers Care Quality Control Chemist Name Role Phone Shanel Gudino NP Primary Care Provider +1 [phone] Encounter Details Date Type Department Care Team (Latest Contact Info) Description 11/28/2024 MyChart Message Enc [facility] Multispecialty Care - [facility] [address] [place] [address] Reece Gamino DO [address] [place], [place] [phone] Surgery Social History Tobacco Use Types Packs/Day [...] on file Legal Sex Female 10:39 AM VERIFICATION ENGINEER Gender Identity Not on file Sexual Orientation Not on file documented as of this encounter Plan of Treatment Upcoming Encounters Date Type Department Care Team (Late st Contact Info) Description 10/02/2025 2:40 PM VERIFICATION ENGINEER Office Visit [facility] Family Medicine - [place] [address] [facility] [address] [place] [address] Shanel Gudino NP [address] [place] [address] 01/28/2026 8:00 AM CDT Office Visit [facility] Multispecialty Care - [facility] [address] [place] [address] Reece Gamino DO [address] [place] [address] documented as of this encounter Visit Diagnoses Not on filedocumented in this encounter Additional Health Concerns Infection Onset Date Last Indicated Resolved Time COVID-19 Rule Out 12/07/2024 12/07/2024 12/07/2024 12:28 PM VERIFICATION ENGINEER Influenza - Seasonal 12/07/2024 12/07/2024 025 12:32 AM VERIFICATION ENGINEER Assessment Noted Time PHQ-9 Depression Total Score: 19 020 11:34 AM VERIFICATION ENGINEER documented as of this encounter Care Teams Quality Control Chemist Relationship Specialty Start Date End Date Shanel Gudino NP [address] [place] [address] PCP - General NURSE PRACTITIONER 05/22/21 documented as of this encounter
--- OUTSIDE RECORDS SUMMARY | 2025-09-12 21:13 | XMS_ITS | Encounter Summary ---
Author Organization [facility] Address [address] [place] [address] Care Team Providers Care Sales Agent Fire Insurance Name Role Phone Teagan Ryan MD Primary Care Provid er Encounter Details Date Type Department Care Team (Late st Contact Info) Description 08/14/2008 Emergency [facility] EMERGENCY ROOM WASH Er, Authorized P NO ADDRESS ON FILE Clement Abbott MD [address] [place] [address] [place] [address] Social History Tobacco Use Types Packs/Day Years Used Date Smoking Tobacco: Never Assessed Comments Unknown Sex and Gender Information Value Date Recorded Sex Assigned at Not on file Legal Sex Female 3:[address] M[address]INE RUNNER Gender Identity Not on file Sexual Orientation [...] PM CDT Narrative 08/14/2008 10:19 PM CDT [address] [address] Admit Date: 08/14/2008 NICOLE SMITH Sex: F Admit Prov: ER, AUTHORIZED P Date: 1990 Primary Care Prov: TEAGAN RYAN CMRN: [id number] Room: [facility] SSN: IMAGING SERVICES Ordering Prov: N/A Accession Number: [id number] Interpretation Computed tomography examination of the abdomen [...] Procedure Note Radhika Dalal MD - 08/14/[address] [address] Admit Date: 08/14/2008 NICOLE SMITH Sex: F Admit Prov: ER, AUTHORIZED P Date: 1990 Primary Care Prov: LUIS TEAGAN A CMRN: [id number] Room: [facility] SSN: IMAGING SERVICES Ordering Prov: N/A [...] [facility] [place] PRELIMINARY REPORT Pending [facility] FINAL REPORT 10-50,000 colonies/mL Polymicrobial growth consistent with normal urethral jaclyn [facility] 08/14/2008 8:00 PM CDT 08/14/2008 8:31 PM CDT Clement Abbott MD MICROBIOLOGY - GENERAL ORDERABL ES Final Result INTERFACE SYSTEM Refer to clinic/hospital department [facility] CLIA# [id number] [address] [place] [address] * (ABNORMAL) URINALYSIS (08/14/2008 8:00 PM CDT) KETONES UA Negative Negative [facility] CLARITY UA Slt. Cloudy(A) Clear [facility] BLOOD UA 3+(A) Negative [facility] PROTEIN UA Negative Negative [facility] LEUKOCYTE ESTERASE UA Negative Negative [facility] UROBILINOGEN UA <1 <1 mg/dL [facility] SPECIFIC GRAVITY UA 1.020 1.001 - 1.035 [facility] GLUCOSE UA Negative Negative [facility] COLOR UA Pale Yellow [facility] NITRITE UA Negative Negative [facility] BILIRUBIN UA Negative Negative [facility] PH UA 6.0 5.0 - 8.0 [facility] WBC UA 0-5 0 - 5 /HPF [facility] TRANSITIONAL EPI 0-2 /HPF [facility] RBC UA 5-10(A) 0 - 2 /HPF [facility] MUCOUS, URINE Rare [facility] BACTERIA UA Trace None Seen /HPF [facility] 08/14/2008 8:00 PM CDT 08/14/2008 8:08 PM CDT Clement Abbott MD URINE ORDERABLES Edited Performing Organization Address [facility] Phone Number INTERFACE SYSTEM Refer to clinic/hospital department [facility] CLIA# [id number] [address] [place] [address] * URINALYSIS WITH REFLEX CULTURE (08/14/2008 8:00 PM CDT) [facility] URINE CULTURE ORDER Culture ordered [facility] Comment: Criteria for a [...] URINE ORDERABLES Final Result Performing Organization Address [facility] Phone Number INTERFACE SYSTEM Refer to clinic/hospital department [facility] CLIA# [id number] [address] [place] [address] * (ABNORMAL) CBC WITH DIFFERENTIAL (08/14/2008 8:00 PM CDT) WBC 11.3(H) 4.0 - 9.8 K/uL [facility] MCH 26.5(L) 27.2 - 32.6 pg [facility] MPV 10.4 9.3 - 12.4 fL [facility] HEMATOCRIT 39.0 35.5 - 44.0 % [facility] RDW-STDEV 40.3 37.1 - 48.7 fL [facility] RBC 4.87 3.90 - 4.90 M/uL [facility] MCHC 33.1 31.5 - 35.5 % [facility] PLATELETS 303 140 - 350 K/uL [facility] MCV 80.1(L) 82.0 - 99.0 fL [facility] HEMOGLOBIN 12.9 11.8 - 14.8 g/dL [facility] RDW 14.0 11.5 - 14.5 % [facility] NEUTROPHIL ABSOLUTE 8.53(H) 1.90 - 7.00 K/uL [facility] EOSINOPHILS 0 0 - 7 % [facility] EOSINOPHIL ABSOLUTE 0.03 0.00 - 0.70 K/uL [facility] LYMPHOCYTES 18 16 - 45 % [facility] LYMPHOCYTE ABSOLUTE 2.08 0.70 - 4.50 K/uL [facility] BASOPHILS 0 0 - 2 % [facility] BASOPHILS ABSOLUTE 0.02 0.00 - 0.20 K/uL [facility] MONOCYTES 6 3 - 13 % [facility] MONOCYTE ABSOLUTE 0.67 0.10 - 1.30 K/uL [facility] NEUTROPHILS 75(H) 45 - 70 % [facility] Blood specimen (specimen) 08/14/2008 8:00 PM CDT 08/14/2008 8:08 PM CDT Narrative INTERFACE SYSTEM - 08/14/2008 8:13 PM CDT er 5 us Clement Abbott MD HEMATOLOGY ORDERABLES Edited INTERFACE SYSTEM Refer to clinic/hospital department [facility] CLIA# [id number] [address] [place] [address] documented in this encounter Visit Diagnoses Not on filedocumented in this encounter Care Teams Sales Agent Fire Insurance Relationship Specialty Start Date End Date Teagan Ryan MD [address] [place] [address] PCP - General 01/04/13 08/06/19 documented as of this encounter
--- OUTSIDE RECORDS SUMMARY | 2025-09-12 21:13 | XMS_ITS | Encounter Summary ---
Author Organization [facility] Address [address] [place] [address] Care Team Providers Care Dairy Manager Name Role Phone Shanel Gudino NP Primary Care Provider +[phone] Encounter Details Date Type Department Care Team (Latest Contact Info) Description 12/19/2024 [employer] Message Enc [facility] Family Medicine [facility] [address] [place] [address] [place] [phone] Shanel Gudino NP [address] [address] Pipe Fitter Soft Copper referral please Social History Tobacco Use Types [...] on file Legal Sex Female 10:39 AM BENEFIT DIRECTOR Gender Identity Not on file Sexual Orientation Not on file documented as of this encounter Plan of Treatment Upcoming Encounters Date Type Department Care Team (Late st Contact Info) Description 10/02/2025 2:40 PM BENEFIT DIRECTOR Office Visit [facility] [address] [facility] [address] [place], [place] [phone] Shanel Gudino NP [address] [place] [address] 01/28/2026 8:00 AM CDT Office Visit [facility] Medical Group Multispecialty Care - [facility] [address] [place] [place] [address] Reece Gamino DO [address] [place] [address] documented as of this encounter Visit Diagnoses Not on filedocumented in this encounter Additional Health Concerns Assessment Noted Time PHQ-9 Depression Total Score: 19 10/28/ 020 11:34 AM BENEFIT DIRECTOR documented as of this encounter Care Teams Dairy Manager Relationship Specialty Start Date End Date Shanel Gudino NP [address] [place] [address] PCP - General NURSE PRACTITIONER 05/22/21 documented as of this encounter
--- OUTSIDE RECORDS SUMMARY | 2025-09-12 21:13 | XMS_ITS | Encounter Summary ---
Author Organization [facility] Address [address] [place] [address] Care Team Providers Care Department Store Manager Name Role Phone Lauryn Ryan MD Primary Care Provid er Encounter Details Date Type Department Care Team (Late st Contact Info) Description 11/26/1998 Outpatient Historical [facility] [place] [address] [place] [address] Social History Tobacco Use Types Packs/Day Years Used Date Smoking Tobacco: Never Assessed Comments Unknown Sex and Gender Information Value Date Recorded Sex Assigned at Not on file Legal Sex Female 3:35 AM FISH ROE PROCESSOR Gender Identity Not on file Sexual Orientation Not on file documented as of this encounter Plan of Treatment Not on file documented as of this encounter Visit Diagnoses Not on filedocumented in this encounter Care Teams Department Store Manager Relationship Specialty Start Date End Date Lauryn Ryan MD [address] [place] [address] PCP - General 01/04/13 08/06/19 documented as of this encounter
--- OUTSIDE RECORDS SUMMARY | 2025-09-12 21:13 | XMS_ITS | Encounter Summary ---
Author Organization [facility] Address [address] [place] [address] Care Team Providers Care Technical Inspector Name Role Phone Shanel Gudino NP Primary Care Provider [phone] [phone] Encounter Details Date Type Department Care Team (Late Contact Info) Description 08/23/2024 MyChart Message Enc [facility] Multispecialty Care - [facility] [address] [place] [phone] Reece Gamino DO [address] [place], [place] [phone] Ent referral Social History Tobacco Use Types [...] on file Legal Sex Female 10:39 AM ELECTRICAL MANUFACTURING TECHNICIAN Gender Identity Not on file Sexual Orientation Not on file documented as of this encounter Plan of Treatment Upcoming Encounters Date Type Department Care Team (Late Contact Info) Description 10/02/2025 2:40 PM ELECTRICAL MANUFACTURING TECHNICIAN Office Visit [facility] Family Medicine - [place] [address] [facility] [address] [place] [address] Shanel Gudino NP [address] [place] [address] 01/28/2026 8:00 AM CDT Office Visit [facility] Multispecialty Care - [facility] [address] [place] [address] Reece Gamino DO [address] [place] [address] documented as of this encounter Visit Diagnoses Not on filedocumented in this encounter Additional Health Concerns Infection Onset Date Last Indicated Resolved Time COVID-19 Rule Out 12/07/2024 12/07/2024 12/07/2024 12:28 PM ELECTRICAL MANUFACTURING TECHNICIAN Influenza - Seasonal 12/07/2024 12/07/2024 025 12:32 AM ELECTRICAL MANUFACTURING TECHNICIAN Assessment Noted Time PHQ-9 Depression Total Score: 19 020 11:34 AM ELECTRICAL MANUFACTURING TECHNICIAN documented as of this encounter Care Teams Technical Inspector Relationship Specialty Start Date End Date Shanel Gudino NP [address] [place] [address] PCP - General NURSE PRACTITIONER 05/22/21 documented as of this encounter
--- OUTSIDE RECORDS SUMMARY | 2025-09-12 21:13 | XMS_ITS | Clinical Summary ---
Author Organization [facility] Address [address] [place] [address] Care Team Providers Care Sprayer Insecticide Name Role Phone Shanel Gudino NP Primary Care Provider +1 [phone] Allergies Active Allergy Reactions Criticality Noted Date Comments Ciprofloxacin Diarrhea 02/05/2015 Medications Respiratory Therapy Supplies (NEBULIZER) DeviceIndication s:Shortness of breath 1 Device by Does not apply route 4 (four) times daily as needed. 1 each 2 Active Cholecalciferol (VITAMIN D3) 250 MCG (16494 UT) Cap Take by mouth 2 (two) [...] helpful. Assessment & Plan (09/26/2024 3:28 PM INTERVENTIONAL RADIOLOGY RN): Chronic condition. Resume compliance with CPAP. Encourage [...] needed. Assessment & Plan (09/26/2024 3:22 PM INTERVENTIONAL RADIOLOGY RN): Chronic condition, stable. Pt denies wanting to make any med changes at this time. Pt notes he depression is a little worse d/t her working more hours right now but should improve soon when her goes back to work. She will follow back up if not to discuss. Denies SI/HI. Obesity (BMI 30-39.9) 09/26/2024 Assessment & Plan (09/26/2024 3:24 PM INTERVENTIONAL RADIOLOGY RN): Encourage diet and lifestyle changes to assist with weight loss. Vitamin D deficiency 09/26/2024 Overview (09/26/2024): Hx of vitamin D deficiency. She was taking 10,000 IU daily and then increased on her own to 20,000IU daily. Her vitamin D level came back elevated at her last lab draw so she went back, taking only 10,000 IUs daily. Assessment & Plan (09/26/2024 3:24 PM INTERVENTIONAL RADIOLOGY RN): Resume only 10,000 IUs daily of D3. Exercise-induced asthma 09/26/2024 Overview (09/26/2024): Stable with Albuterol PRN. Assessment & Plan (09/26/2024 3:26 PM INTERVENTIONAL RADIOLOGY RN): Chronic condition, controlled. No changes needed at this time. Continue albuterol PRN. Continue to follow up with pulmonology as directed. Seasonal allergies 09/26/2024 Overview (09/26/2024): Doing well with Xhance and montelukast. Will be getting allergy testing in the near future she tells me. Assessment & Plan (09/26/2024 3:30 PM INTERVENTIONAL RADIOLOGY RN): Chronic condition, controlled. Will be getting allergy testing in near future. No changes needed at this time. Family history of Crohn's disease 04/07/2023 Overview (04/07/2023): Added automatically from request for surgery [id number] Lung nodule, multiple 01/07/2023 Overview (09/26/2024): Est with pulmonology Dr. Gamino. Pt reports pulm was not concerned with her lung nodules. No follow up testing needed. Assessment & Plan (09/26/2024 3:24 PM INTERVENTIONAL RADIOLOGY RN): Continue to follow up with pulmonology as instructed. Resolved Problems Problem Noted Date Diagnosed Date Resolved Date Abdominal cramping 04/07/2023 Overview (04/07/2023): Added automatically from request for surgery [id number] Blood in stool 04/07/2023 09/26/2024 Overview (04/07/2023): Added automatically from request for surgery [id number] Epigastric pain 04/07/2023 09/26/2024 Overview (04/07/2023): Added automatically from request for surgery [id number] Change in bowel habit 04/07/20232023 Overview (04/07/2023): Added automatically from request for surgery [id number] BRBPR (bright red blood per rectum) 04/07/2023 09/26/2024 Overview (04/07/2023): Added automatically from request for surgery [id number] RLQ abdominal pain 04/07/2023 Overview (04/07/2023): Added automatically from request for surgery [id number] Bleeding hemorrhoid 04/07/2023 09/26/20 24 Overview (04/07/2023): Added automatically from request for surgery [id number] Neck pain 07/19/2022 09/26/2024 New daily persistent headache 07/19/2022 09/26/2024 Cold induced bronchospasm 11/28/2020 Anxiety 10/28/2020 09/26/2024 Annual physical exam 10/28/2020 020 S/P section 08/30/2019 024 Encounters Date Type Department Care Team Description 09/12/2025 Muutt Message Enc [facility] Multispecialty Care - [address] [place] [phone] Reece Gamino DO CPAP use with nighttime heartburn and abdominal pain 08/07/2025 Telephone [facility] Pulmonology Specialty [facility] - [address] [phone] Reece Gamino DO Medication 08/05/2025 8:40 AM CDT [facility] [address] [place] [phone] Reece Gamino DO Asthma (Was only able [...] on file Legal Sex Female 10:39 AM INTERVENTIONAL RADIOLOGY RN Gender Identity Not on file Sexual Orientation Not on file Last Filed Vital Signs Vital Sign Reading Time Taken Comments Blood Pressure 110/75 08/05/2025 8:41 AM CDT Pulse 69 08/05/2025 8:41 AM CDT Temperature 37.5 C (99.5 F) 12/07/2024 11:57 AM INTERVENTIONAL RADIOLOGY RN Respiratory Rate 16 08/05/2025 8:41 AM CDT Oxygen Saturation 98% 08/05/2025 8:41 AM CDT Inhaled Oxygen Concentration - - Weight 89.8 kg (198 lb) 08/05/2025 8:41 AM CDT Height 157.5 cm (5' 2) 08/05/2025 8:41 AM CDT Body Mass Index 36.21 08/05/2025 8:41 AM CDT Plan of Treatment Upcoming Encounters Date Type Department Care Team (Late st Contact Info) Description 10/02/2025 2:40 PM INTERVENTIONAL RADIOLOGY RN Office Visit [facility] Family Medicine - [place] [address] [facility] [address] [place] [address] Shanel Gudino NP [address] [place] [address] 01/28/2026 8:00 AM CDT Office Visit [facility] Multispecialty Care - [facility] [address] [place] [address] Reece Gamino, [address] [facility] [address] [place] [address] Health Maintenance Due Date Last Done Comments [...] 06/11/2008 Hepatitis C Completed 08/22/2023 PHQ-2 (Physician [place]) Completed 12/07/2024 Hepatitis A Vaccines Aged Out [...] HEPATITIS C AB NON-REACT GISSEL NON-REACT GISSEL [facility] Comment: HCV antibody was non-reactive. There is no laboratory evidence of HCV infection. In most cases, no further action is required. However, if recent HCV exposure is suspected, a test for HCV RNA (test code 05483) is suggested. For additional information please refer to http://education.cube19/faq/GEM96q4 (This link is being provided for informational/ educational purposes only.) 08/22/2023 9:36 AM CDT 08/22/2023 9:37 AM CDT Narrative [facility] [facility] - 08/23/2023 4:49 AM CDT FASTING:YES FASTING: YES Resulting Agency Comment Performing Organization Information: Site ID: [email or web address] Name: [email or web address] Address: [facility] [place] [place] [address] Director: Toshia Ayala MD us Shanelchapito Gudino NP LABORATORY Final Res ult [facility] [address] [place] [address], [place] * OUTSIDE CYTOPATH CERV/VAG INTERPRET (PAP) (08/21/2020) 08/21/2020 Narrative 08/21/2020 Ordered by an unspecified provider. us Documents Scanned SCANNING Final Result from Last 3 Months or Most Recently Relevant to Health Maintenance Care Teams Sprayer Insecticide Relationship Specialty Start Date End Date Shanel Gudino, [place] [address] [place] [address] PCP - General NURSE PRACTITIONER 05/22/21
--- OUTSIDE RECORDS SUMMARY | 2025-09-12 21:13 | XMS_ITS | Encounter Summary ---
Author Organization [facility] Address [address] [place] [address] Care Team Providers Care Operations Analyst Name Role Phone Shanel Gudino NP Primary Care Provider [phone] Encounter Details Date Type Department Care Team (Late st Contact Info) Description 01/25/2023 ClearContext Message Enc [facility] Medical [facility] Family Medicine - [place] [address] [facility] [address] [place] [phone] Shanel Gudino, PRES[place] [address] [place] [address] results Social History Tobacco Use [...] on file Legal Sex Female 10:39 AM TIE LOADER Gender Identity Not on file Sexual Orientation [...] st Contact Info) Description 10/02/2025 2:40 PM TIE LOADER Office Visit [facility] Medical [facility] [place] [address] [facility] [address] [place] [address] Shanel Gudino NP [address] [place] [address] 01/28/2026 8:00 AM CDT Office Visit [facility] Multispecialty Care - [facility] [address] [place] [address] Reece Gamino DO [address] [place] [address] documented as of this encounter Visit Diagnoses [...] Rule Out 12/07/2024 12/07/2024 12/07/2024 12:28 PM TIE LOADER Influenza - Seasonal 12/07/2024 12/07/2024 025 12:32 AM TIE LOADER Assessment Noted Time PHQ-9 Depression Total Score: 19 020 11:34 AM TIE LOADER documented as of this encounter Care Teams Operations Analyst Relationship Specialty Start Date End Date Shanel Gudino NP [address] [place] [address] PCP - General NURSE PRACTITIONER 05/22/21 documented as of this encounter
--- OUTSIDE RECORDS SUMMARY | 2025-09-12 21:13 | XMS_ITS | Encounter Summary ---
Author Organization [facility] Address [address] [place] [address] Care Team Providers Care Honing Machine Operator Name Role Phone Shanel Gudino NP Primary Care Provider [phone] Encounter Details Date Type Department Care Team (Late Contact Info) Description 12/13/2024 Beat My Waste Quotet Message Enc [facility] [address] [place] [address] [phone] Shanel Gudino NP [address] [place] [address] Another prednisone round request Social History [...] on file Legal Sex Female 10:39 AM DRYWALL HANGER HELPER Gender Identity Not on file Sexual Orientation Not on file documented as of this encounter Plan of Treatment Upcoming Encounters Date Type Department Care Team (Late Contact Info) Description 10/02/2025 2:40 PM DRYWALL HANGER HELPER Office Visit [place] [phone] [facility] [address] [place], [place] [phone] Shanel Gudino NP [address] [place] [address] 01/28/2026 8:00 AM CDT Office Visit [facility] Medical Group Multispecialty Care - [facility] [address] [place] [address] Reece Gamino DO [address] [place] [address] documented as of this encounter Visit Diagnoses Not on filedocumented in this encounter Additional Health Concerns Infection Onset Date Last Indicated Resolved Time Influenza - Seasonal 12/07/2024 12/07/2024 025 12:32 AM DRYWALL HANGER HELPER Assessment Noted Time PHQ-9 Depression Total Score: 19 020 11:34 AM DRYWALL HANGER HELPER documented as of this encounter Care Teams Honing Machine Operator Relationship Specialty Start Date End Date Shanel Gudino NP [address] [place] [address] PCP - General NURSE PRACTITIONER 05/22/21 documented as of this encounter
--- OUTSIDE RECORDS SUMMARY | 2025-09-12 21:13 | XMS_ITS | Encounter Summary ---
Author Organization [facility] Address [address] [place] [address] Care Team Providers Care Diesel Electrician Name Role Phone Suresh Reagan MD Primary Care Provider Shanel Rodrigues NP Primary Care Provider [phone] Encounter Details Date Type Department Care Team (Late Contact Info) Description 05/19/2021 MyChart Message Enc [facility] Family Medicine [facility] [address] [facility] [address] [place] [address] Shanel Gudino NP [address] [place] [address] RE: Question Social History Tobacco [...] on file Legal Sex Female 10:39 AM BOLT MACHINE OPERATOR Gender Identity Not on file Sexual Orientation Not on file documented as of this encounter Plan of Treatment Upcoming Encounters Date Type Department Care Team (Late Contact Info) Description 10/02/2025 2:40 PM BOLT MACHINE OPERATOR Office Visit [facility] [address] [facility] [address] [place] [address] Shanel Gudino, PRESLEY [address] [place] [address] 01/28/2026 8:00 AM CDT Office Visit [facility] Medical Group Multispecialty Care - [facility] [address] [place] [address] Reece Gamino DO [address] [place] [address] documented as of this encounter Visit Diagnoses Not on filedocumented in this encounter Additional Health Concerns Infection Onset Date Last Indicated Resolved Time COVID-19 Rule Out 11/09/2021 11/09/2021 11/09/2021 9:30 AM BOLT MACHINE OPERATOR COVID-19 Rule Out 11/09/2021 11/09/2021 11/10/2021 2:34 PM BOLT MACHINE OPERATOR COVID-19 Rule Out 01/04/2023 01/04/2023 01/04/2023 2:06 PM BOLT MACHINE OPERATOR COVID-19 Rule Out 01/04/2023 01/04/2023 01/06/2023 3:33 PM BOLT MACHINE OPERATOR COVID-19 Rule Out 02/07/2023 02/07/2023 02/07/2023 1:48 PM CDT COVID-19 Rule Out 02/07/2023 02/07/2023 02/08/2023 3:51 PM CDT COVID-19 Rule Out 04/08/2023 04/08/2023 04/08/2023 10:09 AM CDT COVID-19 Rule Out 04/08/2023 04/08/2023 04/09/2023 8:41 PM CDT COVID-19 Rule Out 04/24/2024 04/24/2024 04/24/2024 4:27 PM CDT COVID-19 Confirmed 04/24/2024 04/24/2024 12:32 AM CDT COVID-19 Rule Out 12/07/2024 12/07/2024 12/07/2024 12:28 PM BOLT MACHINE OPERATOR Influenza - Seasonal 12/07/2024 12/07/2024 025 12:32 AM BOLT MACHINE OPERATOR Assessment Noted Time PHQ-9 Depression Total Score: 19 020 11:34 AM BOLT MACHINE OPERATOR documented as of this encounter Care Teams Diesel Electrician Relationship Specialty Start Date End Date Suresh Reagan MD PCP - General FAMILY MEDICINE SPORTS MEDICINE 10/27/20 05/21/21 Shanel Gudino NP [address] [place] [address] PCP - General NURSE PRACTITIONER 05/22/21 documented as of this encounter
--- OUTSIDE RECORDS SUMMARY | 2025-09-12 21:13 | XMS_ITS | Clinical Summary ---
Author Organization [facility] Address [address] [place] [address] Care Team Providers Care Calf Skinner Name Role Phone Radha Miller MD Primary Care Provider [phone] Kirk Cheung MD Unavailable [phone] [facility],non-owned Affiliates and Associated Physician Practices is amultiple site organization consisting of ambulatory clinics and hospital sitesin [place], [place], [place] and [place]. This disclosure is being madepursuant to the Care Everywhere program and may not contain all information available regarding this patient. Last updated 18.[facility] Allergies Active Allergy Reactions Criticality Noted Date [...] on file Legal Sex Female 5:50 AM MERCHANDISING SPECIALIST Gender Identity Not on file Sexual [...] patient's age to complete this topic Insurance [facility] Care Teams Calf Skinner Relationship Specialty Start Date End Date Radha Miller MD [address] [place] [address] PCP - General Family Medicine 04/22/20 Kirk Cheung MD [address] [place] [address] Family Medicine 04/22/20
--- OUTSIDE RECORDS SUMMARY | 2025-09-12 21:13 | XMS_ITS | Encounter Summary ---
Author Organization [facility] Address [address] [place] [address] Care Team Providers Care Undercutter Operator Name Role Phone Shanel Gudino NP Primary Care Provider [phone] Encounter Details Date Type Department Care Team (Late st Contact Info) Description 12/01/2022 Powerphotonic Message Enc [facility] Medical Group Family Medicine - [place] [address] [facility] [address] [place] [address] [phone] Shanel Gudino, PRES[place] [address] [place] [address] [place] [address] Sleep study results Social History Tobacco [...] on file Legal Sex Female 10:39 AM FLOORING INSTALLER Gender Identity Not on file Sexual Orientation Not on file COVID-19 Exposure Response Date Recorded In the last 10 days, have yo u been in contact with someone who was confirmed or suspected to have Coronavirus/COVID-19? No / Unsure 11/29/2022 10:24 AM FLOORING INSTALLER documented as of this encounter Plan of Treatment Upcoming Encounters Date Type Department Care Team (Late st Contact Info) Description 10/02/2025 2:40 PM FLOORING INSTALLER Office Visit [facility] Medical [facility] Family Medicine - [place] [address] [facility] [address] [place] [address] Shanel Gudino NP [address] [place] [address] 01/28/2026 8:00 AM CDT Office Visit [facility] Multispecialty Care - [facility] [address] [place] [address] Reece Gamino DO [address] [place] [address] documented as of this encounter Visit Diagnoses Not on filedocumented in this encounter Additional Health Concerns Infection Onset Date Last Indicated Resolved Time COVID-19 Rule Out 01/04/2023 01/04/2023 01/04/2023 2:06 PM FLOORING INSTALLER COVID-19 Rule Out 01/04/2023 01/04/2023 01/06/2023 3:33 PM FLOORING INSTALLER COVID-19 Rule Out 02/07/2023 02/07/2023 02/07/2023 1:48 PM CDT COVID-19 Rule Out 02/07/2023 02/07/2023 02/08/2023 3:51 PM CDT COVID-19 Rule Out 04/08/2023 04/08/2023 04/08/2023 10:09 AM CDT COVID-19 Rule Out 04/08/2023 04/08/2023 04/09/2023 8:41 PM CDT COVID-19 Rule Out 04/24/2024 04/24/2024 04/24/2024 4:27 PM CDT COVID-19 Confirmed 04/24/2024 04/24/2024 12:32 AM CDT COVID-19 Rule Out 12/07/2024 12/07/2024 12/07/2024 12:28 PM FLOORING INSTALLER Influenza - Seasonal 12/07/2024 12/07/2024 025 12:32 AM FLOORING INSTALLER Assessment Noted Time PHQ-9 Depression Total Score: 19 020 11:34 AM FLOORING INSTALLER documented as of this encounter Care Teams Undercutter Operator Relationship Specialty Start Date End Date Shanel Gudino NP [address] [place] [address] PCP - General NURSE PRACTITIONER 05/22/21 documented as of this encounter
--- OUTSIDE RECORDS SUMMARY | 2025-09-12 21:13 | XMS_ITS | Encounter Summary ---
Author Organization [facility] Address [address] [place] [address] Care Team Providers Care Website Developer Name Role Phone Shanel Gudino NP Primary Care Provider [phone] Encounter Details Date Type Department Care Team (Late Contact Info) Description 05/17/2023 [employer] [facility] Patient Accounts [address] [place] [address] [facility] Provider Insurance Verification Social History Tobacco Use [...] on file Legal Sex Female 10:39 AM PUNCH MOLDER Gender Identity Not on file Sexual Orientation Not on file documented as of this encounter Plan of Treatment Upcoming Encounters Date Type Department Care Team (Late st Contact Info) Description 10/02/2025 2:40 PM PUNCH MOLDER Office Visit [facility] Medical Group Family Medicine - [place] [address] [facility] [address] [place] [phone] Shanel Gudino NP [address] [place], [place] [phone] 01/28/2026 8:00 AM CDT Office Visit [facility] Medical Group Multispecialty Care - [facility] [address] [place] [address] [address] [place] [address] documented as of this encounter Visit Diagnoses Not on filedocumented in this encounter Additional Health Concerns Infection Onset Date Last Indicated Resolved Time COVID-19 Rule Out 04/24/2024 04/24/2024 04/24/2024 4:27 PM CDT COVID-19 Confirmed 04/24/2024 04/24/2024 12:32 AM CDT COVID-19 Rule Out 12/07/2024 12/07/2024 12/07/2024 12:28 PM PUNCH MOLDER Influenza - Seasonal 12/07/2024 12/07/2024 025 12:32 AM PUNCH MOLDER Assessment Noted Time PHQ-9 Depression Total Score: 19 020 11:34 AM PUNCH MOLDER documented as of this encounter Care Teams Website Developer Relationship Specialty Start Date End Date Shanel Gudino NP [address] [place] [address] PCP - General NURSE PRACTITIONER 05/22/21 documented as of this encounter
--- OUTSIDE RECORDS SUMMARY | 2025-09-12 21:13 | XMS_ITS | Encounter Summary ---
Author Organization [facility] Address [address] [place] [address] Care Team Providers Care Development Executive Name Role Phone Shanel Gudino NP Primary Care Provider [phone] Encounter Details Date Type Department Care Team (Late Contact Info) Description 11/01/2024 Afrifresh Grou[employer] Message Enc [address] [place] [phone] Shanel Gudino NP [address] [place] [address] Follow up from antibiotics new/worsening Social [...] on file Legal Sex Female 10:39 AM ER TECH Gender Identity Not on file Sexual Orientation Not on file documented as of this encounter Plan of Treatment Upcoming Encounters Date Type Department Care Team (Late Contact Info) Description 10/02/2025 2:40 PM ER TECH Office Visit [place] [phone] [facility] [address] [place] [address] Shanel Gudino NP [address] [place] [id number] 01/28/2026 8:00 AM CDT Office Visit [facility] Medical Group Multispecialty Care - [facility] [address] [place] [address] Reece Gamino DO [address] [place] [address] documented as of this encounter Visit Diagnoses Not on filedocumented in this encounter Additional Health Concerns Infection Onset Date Last Indicated Resolved Time COVID-19 Rule Out 12/07/2024 12/07/2024 12/07/2024 12:28 PM ER TECH Influenza - Seasonal 12/07/2024 12/07/2024 025 12:32 AM ER TECH Assessment Noted Time PHQ-9 Depression Total Score: 19 020 11:34 AM ER TECH documented as of this encounter Care Teams Development Executive Relationship Specialty Start Date End Date Shanel Gudino NP [address] [place] [id number] PCP - General NURSE PRACTITIONER 05/22/21 documented as of this encounter
--- OUTSIDE RECORDS SUMMARY | 2025-09-12 21:13 | XMS_ITS | Encounter Summary ---
Author Organization [facility] Address [address] [place] [address] Care Team Providers Care Care Transport Nurse Name Role Phone Shanel Gudino NP Primary Care Provider [phone] [phone] Encounter Details Date Type Department Care Team (Late Contact Info) Description 05/12/2023 Vend-a-Bart Message Enc [facility] Family Medicine [address] [place] [phone] Shanel Gudino NP [address] [place] [address] Another concern I have noticed Social [...] on file Legal Sex Female 10:39 AM RIM TECHNICIAN Gender Identity Not on file Sexual Orientation Not on file documented as of this encounter Plan of Treatment Upcoming Encounters Date Type Department Care Team (Late Contact Info) Description 10/02/2025 2:40 PM RIM TECHNICIAN Office Visit [address] [place] [address] Shanel Gudino NP [address] [place] [address] 01/28/2026 8:00 AM CDT Office Visit [facility] Medical Group Multispecialty Care - [facility] [address] [place] [address] Reece Gamino DO [address] [place] [address] documented as of this encounter Visit Diagnoses Not on filedocumented in this encounter Additional Health Concerns Infection Onset Date Last Indicated Resolved Time COVID-19 Rule Out 04/24/2024 04/24/2024 04/24/2024 4:27 PM CDT COVID-19 Confirmed 04/24/2024 04/24/2024 4 12:32 AM CDT COVID-19 Rule Out 12/07/2024 12/07/2024 12/07/2024 12:28 PM RIM TECHNICIAN Influenza - Seasonal 12/07/2024 12/07/2024 025 12:32 AM RIM TECHNICIAN Assessment Noted Time PHQ-9 Depression Total Score: 19 020 11:34 AM RIM TECHNICIAN documented as of this encounter Care Teams Care Transport Nurse Relationship Specialty Start Date End Date Shanel Gudino NP [address] [place] [address] PCP - General NURSE PRACTITIONER 05/22/21 documented as of this encounter
--- OUTSIDE RECORDS SUMMARY | 2025-09-12 21:13 | XMS_ITS | Encounter Summary ---
Author Organization [facility] Address [address] [place] [address] Care Team Providers Care Propagator Name Role Phone Lauryn Ryan MD Primary Care Provid er Encounter Details Date Type Department Care Team (Late st Contact Info) Description 08/08/1998 Outpatient Historical [facility] [place] [address] [place] [address] Social History Tobacco Use Types Packs/Day Years Used Date Smoking Tobacco: Never Assessed Comments Unknown Sex and Gender Information Value Date Recorded Sex Assigned at Not on file Legal Sex Female 3:35 AM ORDER BUILDER Gender Identity Not on file Sexual Orientation Not on file documented as of this encounter Plan of Treatment Not on file documented as of this encounter Visit Diagnoses Not on filedocumented in this encounter Care Teams Propagator Relationship Specialty Start Date End Date Lauryn Ryan MD [address] [place] [phone] PCP - General 01/04/13 08/06/19 documented as of this encounter
--- NOTE | 2025-09-12 21:14 | PC.NURSE ---
RN attempting to discharge at this time. Pt stood up beside bed with no issues. Pt then began to get pale and feel sick. Rn at bedside. Pt was given snacks and juice by this RN at this time. Pt received meclizine prior to this as well.
== END 2025-09-12 21:31 | disposition home or self-care (01) ==
PROVIDERS: Physician Assistant; Emergency Provider Student in an Organized Health Care Education/Training Program; PCP Nurse Practitioner
DX: K21.9 Gastro-esophageal reflux disease without esophagitis (principal); R10.13 Epigastric pain; D72.829 Elevated white blood cell count, unspecified; J45.909 Unspecified asthma, uncomplicated; F41.9 Anxiety disorder, unspecified; F32.A Depression, unspecified; Z79.899 Other long term (current) drug therapy; R94.31 Abnormal electrocardiogram [ECG] [EKG]
CPT/HCPCS: 36415; 71046; 80053; 81001; 82948; 83690; 84484; 85025; 85610; 85730; 93005; 96374; 96375; 96376; 99284; A9270; J1885; J2270; J2470